=== PATIENT | female | born 1960 | race Caucasian/White ===

== ENCOUNTER 2023-12-25 20:38 | Emergency (ER) | payer OTHER, SELFPAY ==
[2023-12-25 20:44] VITALS: BP 152/83
[2023-12-25 21:53] VITALS: BMI 22.4
[2023-12-25 22:02] VITALS: BP 142/70
[2023-12-25 22:07] LABS: % Basophils 0.2 % (0-2); % Eosinophils 0.2 % (0-6); % Immature Granulocytes 0.3 % (0-0.5); % Lymphocytes 9.4 % (20.5-51.1); % Monocytes 2.6 % (1.7-9.3); % Neutrophils 87.3 % (42.2-75.2); Absolute Lymphocytes 0.9 10^3/uL (1.2-3.4); Absolute Monocytes 0.2 10^3/uL (0.1-0.6); Absolute Neutrophils 8.1 10^3/uL (1.4-6.5); Hematocrit 33.1 % (37.0-47.0); Hemoglobin 11.1 g/dL (12.0-16.0); Mean Corp Hgb Conc. 33.5 g/dL (33.0-37.0); Mean Corpuscular Hgb 30.3 pg (27.0-31.0); Mean Corpuscular Volume 90.4 fL (81.0-99.0); Mean Platelet Volume 10.3 fL (7.4-10.4); Nucleated Red Blood Cells % 0 %; Platelet Count 176 10^3/uL (130-400); Red Blood Cell Count 3.66 10^6/uL (4.20-5.40); Red Cell Dist. Width 12.8 % (11.5-14.5); White Blood Cell Count 9.3 10^3/uL (4.8-10.8)
[2023-12-25 22:18] LABS: Urine Albumin Trace (Neg - Trace); Urine Bilirubin Negative (Negative); Urine Character Clear (Clear); Urine Color Yellow; Urine Glucose Negative (Negative); Urine Ketone 1+ (Negative); Urine Leukocyte Negative (Negative); Urine Nitrite Negative (Negative); Urine Occult Blood 4+ (Negative); Urine Specific Gravity 1.015 (<1.030); Urine Urobilinogen Negative (Neg - 1+)
[2023-12-25 22:28] LABS: Urine Bacteria Few (Negative); Urine Red Blood Cell 70-80 /HPF (0-2); Urine White Cell 0-2 /HPF (0-5)
[2023-12-25 22:36] LABS: ALT (SGPT) 53 U/L (0-35); AST (SGOT) 35 U/L (14-36); Albumin 4.7 g/dl (3.5-5.0); Alkaline Phosphatase 109 U/L (38-126); Blood Urea Nitrogen 34 mg/dl (7-17); Calcium 8.9 mg/dl (8.4-10.2); Carbon Dioxide 16 mmol/L (22-30); Chloride 111 mmol/L (98-107); Estimated Creatinine Clearance 19 ml/min; Glucose 136 mg/dl (70-99); Lipase 232 U/L (23-300); Potassium 4.7 mmol/L (3.5-5.1); Sodium 138 mmol/L (135-145); Total Bilirubin 0.6 mg/dl (0.2-1.3); Total Protein 7.2 g/dl (6.3-8.2); eGFR 19.86
--- NOTE | 2023-12-25 23:07 | ED.GENMED ---
History of Present Illness
General
Chief Complaint: Abdominal Pain
Source: patient
Exam Limitations: none
Time Seen by Provider: 12/25/23 22:00
History of Present Illness
History of Present Illness:
This is a 63 year old female that comes in with c/o right lower abd pain. State that this started at 4pm and was constant. States that at this time it has let up. States that she was nauseated, had dry heaves and diarrhea this morning. Denies any
fever, chills, chest pain, SOB, headache, dizziness, urinary burning.
Past History
Past History
ED Past Medical History: NIDDM and Other (Pancreatitis, Chronic kidney disease)
ED Past Surgical History: Cholecystectomy, Gynecological (Tubal), Orthopedic (Foot, hand and knee surgery (doesn't remember which side)) and Other (Gastric by pass)
Social History
Tobacco: Non-smoker
Alcohol: None
Personal:
Living: with family
Review of Systems
Review of Systems
All Other Systems: ROS reviewed and negative except as documented in HPI and ROS
Constitutional: Reports no symptoms; Denies fever or chills
EENT: Reports no symptoms
Respiratory: Reports no symptoms; Denies cough or trouble breathing
Cardiac: Reports no symptoms; Denies chest pain
ABD/GI: Reports abdominal pain, nausea, vomiting (Dry heaves) and diarrhea
: Reports no symptoms; Denies dysuria, frequency or urgency
Musculoskeletal: Reports no symptoms
Skin: Reports no symptoms
Neurological: Reports no symptoms; Denies dizzy or headache
Psychiatric: Reports no symptoms
Phy Exam
General Physical Exam
General Presentation: no apparent distress
General age: appears stated age
General Skin: warm and dry
General Habitus: normal
General Mental: alert
General Hydration: appears well hydrated
ENT Exam
ENT Exam: TM's normal, pharynx normal and neck supple
Eye Exam
Eye Exam: EOMI
Cardiovascular Exam
Cardiovascular Exam: regular rate/rhythm, no edema, no murmur and normal peripheral pulses
Pulmonary Exam
Pulmonary Exam: lungs clear, no respiratory distress, no rales, chest non tender, no crackles, no rhonchi, no wheezing and no cough
Gastrointestinal Exam
Gastrointestinal Exam: normal bowel sounds, soft, no organomegaly, no pulsatile mass, non distended and tender (Right lower abd tenderness with palpation)
Musculoskeletal Exam
Musculoskeletal Exam: full ROM and no edema
Skin Exam
Skin Exam: normal color, warm/dry, no rash and no petechia
Psychiatric Exam
Psychiatric Exam: normal mood/affect
Course
Orders/Labs/Results
Orders:
Orders
12/25/23 22:00
Complete Blood Count/With Diff Urgent
Comprehensive Metabolic Panel Urgent
Lipase Urgent
12/25/23 22:09
Urine Microscopic Reflex Cult Urgent
Urine Reflex Culture from UA [Urinalysis Reflex To Culture] Urgent
Date Specimen was Collected: 12/25/23
Time Specimen was Collected: 22:07
12/25/23 23:07
0.9% Sodium Chloride 1000 ml [Nss] 1,000 ml IV BOLUS
Iohexol [Omnipaque] See Protocol PO NOW STA
12/26/23 01:15
CT Abd/pel (oral only)-DH Only Urgent
Reason For Exam: right lower abd pain
Abnormal Lab Results
12/25/23 12/25/23
22:00 22:09
RBC 3.66 L 10^6/uL
(4.20-5.40)
Hgb 11.1 L g/dL
(12.0-16.0)
Hct 33.1 L %
(37.0-47.0)
Absolute Neuts (auto) 8.1 H 10^3/uL
(1.4-6.5)
Absolute Lymphs (auto) 0.9 L 10^3/uL
(1.2-3.4)
Neutrophils % 87.3 H %
(42.2-75.2)
Lymphocytes % 9.4 L %
(20.5-51.1)
Chloride 111 H mmol/L
(98-107)
Carbon Dioxide 16 L mmol/L
(22-30)
BUN 34 H mg/dl
(7-17)
Creatinine 2.6 H mg/dL
(0.6-1.0)
Glucose 136 H mg/dl
(70-99)
ALT 53 H U/L
(0-35)
Urine Ketones 1+ A
(Negative)
Ur Occult Blood Reflex 4+ A
(Negative)
Urine RBC 70-80 A /HPF
(0-2)
Urine Bacteria (Reflex) Few A
(Negative)
12/25/23 22:00
12/25/23 22:00
H/H slightly low. Chloride elevation. carbon dioxide low. Chronic Kidney disease, Glucose nonfasting. ALT elevation. Urine negative for infection, Positive for blood. Lipase normal
Vital Signs
Initial and Last Documented VS:
Initial Vital Signs
Temp Pulse Resp BP Pulse Ox
98.6 F 67 20 152/83 99
12/25/23 20:44 12/25/23 20:44 12/25/23 20:44 12/25/23 20:44 12/25/23 20:44
Last Documented Vital Signs
Temp Pulse Resp BP Pulse Ox
98.0 F 62 18 155/76 98
12/25/23 22:02 12/26/23 01:19 12/26/23 01:19 12/26/23 01:19 12/26/23 01:19
MDM/Problems Addressed
Differential Diagnosis Includes:
Appendicitis. Renal calculus,
MDM/Problems Addressed:
This is a 63 year old female that comes in with c/o right lower abd pain. State that this started at 4pm and continued to just recently and know it has subsided.
Will get labs. Urine and CT scan.
Back into see patient. Explained that her blood work shows her chronic renal disease. Patient States that she thinks her last Cr was 2.3. Explained to patient that this is going up and she needs to see her General Magistrate. CT shows that there is some
right sided Hydronephrosis but there is no renal calculus noted. Explained to patient that she may have passed the stone as three is blood in her urine. Encouraged patient to increase her water intake. return with any concerns.
Chronic conditions affecting care: Previous abdomnial surgery and Kidney disease
Acute Exacerbation and/or Progression of Chronic Illness: Previous abdomnial surgery and Kidney disease
*Radiology
Radiology exam reviewed: radiology read reviewed (CT night hawk- mild right hydronephrosis without visualize obstructing calculus. This may be due to a recently passed stone or an ascending urinary tract infection. Dilated left renal pelvis.
bilateral renal cysts. nonobstructing right lower pole renal calculus. Prior gastric bypass. Moderate ) and other (Ct cont- moderate renal esophageal wall and gastric wall thickening. Prior Cholecystectomy. Mild left convex lumbar scoliosis with
associated spondylosis)
*Pulse Oximetry
Patient hypoxic: no
*EKG
Interpreted by ED Provider?: NA
Rate: EKG- N/A
*[employer] Interpretation
Rate: [employer]- N/A
*Critical Care Note
Total Time (30-74mins, 75-104mins- exclusive of procedures): Not Applicable
ED Attending Note
-
Portions of this chart may have been created with voice recognition software.� Occasional wrong word or��sound alike� substitutions may have occurred due to the inherent limitations of voice recognition software.
Discharge Plan
Departure
Patient Disposition: Home (Routine Discharge)
Date of Disposition: 12/26/23
Time of Disposition: 02:33
Patient with high blood pressure during this ER visit?: Yes
Condition: Good
Covid-19: Not Applicable
Discharge Problem:
Abdominal pain, right lower quadrant
Instructions: Abdominal Pain, BLOOD PRESSURE
Referrals:
Jon Mitchell MD [Family Provider] - Call in 1-3 days for appt
Activity Restrictions/Additional Instructions:
As discussed, your blood work shows your renal disease. Please follow up with your General Magistrate for further evaluation. Your CT is negative for any acute disease. There is some hydronephrosis on the right kidney which means that you could have had a
stone and passed the stone as there is none seen in the ureter. Please increase your water intake to 8-8oz glasses daily. IF YOU HAVE INCREASED OR CHANGING PAIN, FEVER, OR YOU HAVE ANY OTHER CONCERNS PLEASE RETURN TO THE EMERGENCY ROOM.
Interventions
Interventions:
*Risk Screen - Suicide Last Done: 12/25/23 20:44
*General Assessment Last Done: 12/25/23 20:44
*Neglect/Abuse Screening Last Done: 12/25/23 20:44
ED- Fall Risk Assessment Last Done: 12/25/23 22:09
TC-Bgtlly-Nobdglujyb Assessment Last Done: 12/25/23 22:09
Discharge Date and Time
Print Language: AZERI
[2023-12-25] MEDS: NSS 1000 IV (23:14)
[2023-12-25] MEDS: OMNIPAQUE 50 ML PO (23:14)
[2023-12-26 01:19] VITALS: BP 155/76
== END 2023-12-26 02:45 | disposition home or self-care (01) ==
LOC: EMR 20:38
PROVIDERS: Clinical Nurse Specialist Family Health; EMERGENCY PHYSICIAN Emergency Medicine; FAMILY PHYSICIAN Family Medicine
DX: R10.31 Right lower quadrant pain (principal); E11.22 Type 2 diabetes mellitus with diabetic chronic kidney disease; N18.9 Chronic kidney disease, unspecified; Z90.49 Acquired absence of other specified parts of digestive tract; Z98.84 Bariatric surgery status
CPT/HCPCS: 99283; 96360; 74176; 80053; 81003; 81015; 83690; 85025

== ENCOUNTER 2024-03-19 16:08 | Inpatient (IN) | payer MEDICARE, OTHER, SELFPAY ==
[2024-03-19] VITALS (10 sets, daily range): BP systolic 123–163; BP diastolic 75–108; BMI 21.6; BMI 21.4
--- NOTE | 2024-03-19 11:47 | ED.GENMED ---
History of Present Illness
General
Chief Complaint: Abdominal Symptoms
Source: patient
Exam Limitations: none
Time Seen by Provider: 03/19/24 11:20
Nursing documentation reviewed up to this point in time: agreed with
History of Present Illness
History of Present Illness:
63-year-old female with a past medical history of diabetes, chronic kidney disease, prior history of pancreatitis who presents to the emergency room for evaluation of nausea, vomiting, abdominal pain. Patient reports onset of symptoms Saturday
evening�she thinks it could potentially been triggered by eating some questionable cottage cheese. She says she began with nausea and vomiting and has had vomiting/dry heaving since. She says that Saturday she had some nonbloody diarrhea which
seems to have resolved. She says that she is having difficulty tolerating fluids. She has been having epigastric abdominal pain consistent for the past few days. She says she has had a low-grade fever at home. Finally came to the ER to be
assessed. She denies any urinary symptoms. She denies any chest pain, shortness of breath. She says she had pancreatitis in the past but says today symptoms do not feel quite the same. She does have prior surgical history of gastric bypass
surgery in 2019 also reports prior history of cholecystectomy and tubal ligation.
Past History
Past History
ED Past Medical History: NIDDM and Other (Pancreatitis, Chronic kidney disease)
ED Past Surgical History: Cholecystectomy, Gynecological (Tubal), Orthopedic (Foot, hand and knee surgery (doesn't remember which side)) and Other (Gastric by pass)
Social History
Tobacco: Non-smoker
Alcohol: None
Personal:
Living: with family
Review of Systems
Review of Systems
All Other Systems: ROS reviewed and negative except as documented in HPI and ROS
Constitutional: Reports fever, fatigue and chills
EENT: Denies sore throat or runny nose
Respiratory: Denies cough or trouble breathing
Cardiac: Denies chest pain or palpitations
ABD/GI: Reports abdominal pain, nausea, vomiting and diarrhea
: Denies dysuria, frequency or flank pain
Musculoskeletal: Denies edema or neck pain
Neurological: Denies dizzy or headache
Phy Exam
Physical Exam
Physical Exam:
General: Awake, alert, oriented x3; no acute distress
Head: Normocephalic, atraumatic
Eyes: Conjunctiva normal, sclera anicteric
Throat: Airway intact, dry mucous membranes
Neck: Trachea midline, supple without meningismus
Lungs: Clear to auscultation bilaterally, no wheezing, rales, rhonchi
Heart: Regular rate and rhythm, no murmurs, gallops, or rubs
Abd: Soft, non distended, tender to palpation in the epigastrium, no peritoneal signs
Neuro: No gross deficits
Skin: no rash, dry
Extremities: Warm and well-perfused with no edema
Scores
Heart Failure Risk
Heart Failure Risk Score: Not Applicable
Heart Score for Chest Pain Patients
STEMI patient?: Not applicable
Withdrawal Assessment of Alcohol
Withdrawal Assessment Completed?: Not applicable
Course
Orders/Labs/Results
Orders:
Orders
03/19/24 11:21
Electrocardiogram (*1) Urgent
Reason for Study: Abdominal Pain
EKG- Treatment ONCE
Urinalysis Reflex To Culture Urgent
0.9% Sodium Chloride 1000 ml [Nss] 1,000 ml IV BOLUS
Ondansetron Injectable [Zofran] 4 mg IV NOW STA
03/19/24 11:38
Basic Metabolic Panel Urgent
Complete Blood Count/With Diff Urgent
Troponin I Urgent
03/19/24 11:59
Acetaminophen [Tylenol] 1,000 mg PO NOW STA
Morphine Sulfate 4 mg IV NOW STA
03/19/24 12:54
CT Abd/pel Without Iv Or Oral Urgent
Comment:
Reason For Exam: upper abd pain, n/v
03/19/24 14:39
Comprehensive Metabolic Panel Urgent
Lipase Urgent
03/19/24 14:45
Stool Culture Urgent
THEO Source: Feces/Stool
Specimen Description:
Abnormal Lab Results
03/19/24
11:38
MPV 10.6 H fL
(7.4-10.4)
Absolute Neuts (auto) 8.3 H 10^3/uL
(1.4-6.5)
Neutrophils % 81.3 H %
(42.2-75.2)
Lymphocytes % 14.4 L %
(20.5-51.1)
Sodium 147 H mmol/L
(135-145)
Chloride 114 H mmol/L
(98-107)
Carbon Dioxide 11 L* mmol/L
(22-30)
BUN 24 H mg/dl
(7-17)
Creatinine 2.4 H mg/dL
(0.6-1.0)
Glucose 139 H mg/dl
(70-99)
03/19/24 11:38
Vital Signs
Initial and Last Documented VS:
Initial Vital Signs
Temp Pulse Resp BP Pulse Ox
36.5 C 73 18 143/81 97
03/19/24 09:42 03/19/24 09:42 03/19/24 09:42 03/19/24 09:42 03/19/24 09:42
Last Documented Vital Signs
Temp Pulse Resp BP Pulse Ox
37.2 C 59 21 163/108 100
03/19/24 12:15 03/19/24 12:30 03/19/24 12:30 03/19/24 12:00 03/19/24 12:30
MDM/Problems Addressed
Differential Diagnosis Includes:
Gastritis, pancreatitis, bowel obstruction, gastroenteritis, atypical angina/PR
MDM/Problems Addressed:
63-year-old female presents for evaluation of nausea, vomiting, epigastric pain and low-grade fever�today is day 4 of symptoms. Vital signs normal here. Exam as above. Place an IV check labs including a CBC, CMP, lipase. Check an EKG and
troponin. Will check CT abdomen pelvis. Will provide fluids and antiemetic. Monitor closely reassess after the above.
Labs reviewed: CBC unremarkable, CMP shows bicarb 11 metabolic acidosis likely from GI losses and dry heaving. CT abdomen pelvis shows liquid stool in the colon no other acute pathology noted. Suspect that this is likely viral illness. Patient
still nauseated and dry heaving will provide another dose of Zofran. Pain improved with morphine. Plan for admission for hydration and symptom control in the setting of suspected viral GI illness. Will send stool sample for culture when able.
Discussed with hospitalist.
Acute Exacerbation and/or Progression of Chronic Illness:
Acutely hypertensive with no signs or symptoms of hypertensive emergency�no indication for emergent antihypertensive treatment at present
Acute Exacerbation and/or Progression of Chronic Illness: HTN
*Radiology
Radiology exam reviewed: radiology read reviewed
*Pulse Oximetry
Patient hypoxic: no
*EKG
Interpreted by ED Provider?: Yes
Heart Rate: 62
Rate: normal
Rhythm: sinus
[place]: normal axis
Interval: normal interval and normal QT interval
QRS Pattern: normal QRS
Ischemia: no ischemia
*Critical Care Note
Total Time (30-74mins, 75-104mins- exclusive of procedures): Not Applicable
Data Reviewed
Review of Other/Old Records Reveals: Labs and Records
Source: patient and records
Patient Management
Discussion with other providers: Hospitalist (Discussed with hospitalist)
Escalation/DeEscalation of care consider admission/obs:
Admission indicated
ED Attending Note
-
Portions of this chart may have been created with voice recognition software.� Occasional wrong word or��sound alike� substitutions may have occurred due to the inherent limitations of voice recognition software.
Discharge Plan
Departure
Presentation/result/management discussed w/ accepting MD/DO: Hospitalist
Discharge Problem:
Colitis, Acute dehydration, Metabolic acidosis
Prescriptions:
No Action
exemestane 25 mg Tablet
25 mg PO DAILY
acetaminophen [Tylenol] 325 mg Tablet
650 mg PO TIDPRN PRN (Reason: mild pain)
aspirin 325 mg Tablet
325 mg PO BIDPRN PRN (Reason: mild pain)
pyridoxine (vitamin B6) 25 mg Tablet
25 mg PO DAILY
omeprazole 40 mg Capsule,Delayed Release(Dr/Ec)
40 mg PO DAILY
vitamin B complex [B Complete] Tablet
1 tab PO DAILY
cholecalciferol (vitamin D3) [Vitamin D3] 25 mcg (1,000 unit) Tablet
25 mcg PO DAILY
Referrals:
Jon Mitchell MD [Family Provider] -
Interventions
Interventions:
*Risk Screen - Suicide Last Done: 03/19/24 09:42
*General Assessment Last Done: 03/19/24 09:42
*Neglect/Abuse Screening Last Done: 03/19/24 09:42
ED- Fall Risk Assessment Last Done: 03/19/24 11:37
*ED COVID-19 Vaccine History Last Done: 03/19/24 11:37
VH-Rkcwtz-Dmdfruldye Assessment Last Done: 03/19/24 11:37
ED- Neurological Assessment Last Done: 03/19/24 11:37
ED-Skin Assessment Last Done: 03/19/24 11:37
Discharge Date and Time
Print Language: TURKMEN
[2024-03-19] MEDS: ZOFRAN 4 MG IV ×4 (11:54→23:55)
[2024-03-19] MEDS: NSS 1000 IV ×2 (11:54→17:10)
[2024-03-19 12:03] LABS: % Basophils 0.2 % (0-2); % Immature Granulocytes 0.3 % (0-0.5); % Lymphocytes 14.4 % (20.5-51.1); % Monocytes 3.8 % (1.7-9.3); % Neutrophils 81.3 % (42.2-75.2); Absolute Lymphocytes 1.5 10^3/uL (1.2-3.4); Absolute Monocytes 0.4 10^3/uL (0.1-0.6); Absolute Neutrophils 8.3 10^3/uL (1.4-6.5); Hematocrit 38.3 % (37.0-47.0); Hemoglobin 12.8 g/dL (12.0-16.0); Mean Corp Hgb Conc. 33.4 g/dL (33.0-37.0); Mean Corpuscular Hgb 29.5 pg (27.0-31.0); Mean Corpuscular Volume 88.2 fL (81.0-99.0); Mean Platelet Volume 10.6 fL (7.4-10.4); Nucleated Red Blood Cells % 0 %; Platelet Count 189 10^3/uL (130-400); Red Blood Cell Count 4.34 10^6/uL (4.20-5.40); Red Cell Dist. Width 12.8 % (11.5-14.5); White Blood Cell Count 10.2 10^3/uL (4.8-10.8)
[2024-03-19] MEDS: TYLENOL 1000 MG PO (12:03)
[2024-03-19] MEDS: MORPHINE SULFATE 4 MG IV (12:04)
[2024-03-19 12:20] LABS: Blood Urea Nitrogen 24 mg/dl (7-17); Calcium 9.3 mg/dl (8.4-10.2); Carbon Dioxide 11 mmol/L (22-30); Chloride 114 mmol/L (98-107); Estimated Creatinine Clearance 21 ml/min; Glucose 139 mg/dl (70-99); Sodium 147 mmol/L (135-145); eGFR 21.87
[2024-03-19 12:26] LABS: Troponin I < 0.012 ng/ml
[2024-03-19 15:09] LABS: ALT (SGPT) 59 U/L (0-35); AST (SGOT) 100 U/L (14-36); Albumin 3.8 g/dl (3.5-5.0); Alkaline Phosphatase 95 U/L (38-126); Blood Urea Nitrogen 23 mg/dl (7-17); Calcium 8.1 mg/dl (8.4-10.2); Carbon Dioxide 12 mmol/L (22-30); Chloride 117 mmol/L (98-107); Estimated Creatinine Clearance 23 ml/min; Glucose 117 mg/dl (70-99); Lipase 295 U/L (23-300); Potassium 3.9 mmol/L (3.5-5.1); Sodium 146 mmol/L (135-145); Total Bilirubin 0.5 mg/dl (0.2-1.3); Total Protein 6.1 g/dl (6.3-8.2); eGFR 24.27
--- NOTE | 2024-03-19 15:27 | HPS.HSE ---
Family Physician
-
Family Physician: Jon Mitchell
Chief Complaint
-
nausea and vomiting
History of Present Illness
Ms. Mikayla Castellano is a 63 yo woman with hx DM, CKD, prior history of pancreatitis, gastric bypass surgery 2019 who presents to the ER with nausea, vomiting, diarrhea.
Symptoms started on Saturday evening, thought triggered by eating some questionable cottage cheese. Since then she has had multiple episodes of vomiting/dry heaves during the day. + upper abdominal pain and now she is starting to feel GERD-like pain
start. + fever up to 100.7. No one else in house is sick. Traveled to [facility] over the weekend.
No chest pain. No shortness of breath. No LE swelling. No rash. Zofran in the ER helped relieve symptoms.
Medical History
Past Medical History
Past Medical History: Reports NIDDM and Other (DM, CKD, prior history of pancreatitis)
Past Surgical History: Reports Cholecystectomy, Orthopedic and Other (gastric bypass surgery 2019)
Social History
Tobacco: Non-smoker
Alcohol: None
Family History
Family History: Not pertinent
Allergies / Home Medications
Allergies reflects when Allergies were last updated in [employer].
Home Medications with original date entered in [employer]
Allergy/Medication List:
Allergies
Allergy/AdvReac Type Severity Reaction Status Date / Time
Sulfa (Sulfonamide Allergy Severe Unknown Verified 03/19/24 09:41
Antibiotics)
Home Medications
acetaminophen 325 mg tablet (Tylenol) 650 mg PO TIDPRN PRN mild pain 03/19/24
aspirin 325 mg tablet 325 mg PO BIDPRN PRN mild pain 03/19/24
cholecalciferol (vitamin D3) 25 mcg (1,000 unit) tablet (Vitamin D3) 25 mcg PO DAILY 03/19/24
exemestane 25 mg tablet 25 mg PO DAILY 03/19/24
omeprazole 40 mg capsule,delayed release 40 mg PO DAILY 03/19/24
pyridoxine (vitamin B6) 25 mg tablet 25 mg PO DAILY 03/19/24
vitamin B complex 1 tab PO DAILY 03/19/24
Review of Systems
-
History Source: Patient
A 12 point ROS was completed and negative except as noted: Yes
Physical Exam
Vital Signs
Vital Signs
Temp Pulse Resp BP Pulse Ox
99 F 59 21 163/108 100
03/19/24 12:15 03/19/24 12:30 03/19/24 12:30 03/19/24 12:00 03/19/24 12:30
Physical Exam
General: No Apparent Distress and Conversant
HEENT: PERRLA
Respiratory: Clear; No Wheezes
Cardiac: S1/S2 and Regular Rhythm
GI: Soft and Other (mild tenderness mid-epigsatric region, no rebound or guarding )
Musculoskeletal: No Edema
Skin: Warm and Dry; No Rash
Neuro: AO x 3
Psych: Calm
Laboratory Results
-
03/19/24 11:38
03/19/24 14:39
Laboratory Results
Total Bilirubin 0.5 mg/dl (0.2-1.3) 03/19/24 14:39
AST 100 U/L (14-36) H 03/19/24 14:39
ALT 59 U/L (0-35) H 03/19/24 14:39
Alkaline Phosphatase 95 U/L (38-126) 03/19/24 14:39
Troponin I < 0.012 ng/ml 03/19/24 11:38
Lipase 295 U/L (23-300) 03/19/24 14:39
Data Reviewed
-
Diagnostic Radiology: Report Reviewed by me
Lab Data: Labs Reviewed by me
Impression/Plan
-
Ms. Mikayla Castellano is a 63 yo woman with hx DM, CKD III, prior history of pancreatitis, gastric bypass surgery 2018 who presents to the ER with nausea/vomiting/diarrhea found to have metabolic acidosis.
Triage VS: T 36.5C, P 73, RR 18, BP 143/81, SpO2 97%
LABS: WBC 10.2, Hg 12.8, PLT 189, Na 147, + 3.9, Cl 114, CO2 11, Cr 2.4, Glucose 139, T. Bili 0.5, AST 100, ALT 59, Alk Phos 95, Lipase 295
EKG: NSR @ 62, QTc 391
CT A/P
IMPRESSION:
Liquid stool in the colon which can be seen in the setting of diarrheal disease. Otherwise, no acute abnormality in the abdomen or pelvis.
Colonic diverticulosis without acute diverticulitis.
Stable nonobstructing calculi in the lower pole of the right kidney.
MAR: IV Morphine, 1L NS, IV Zofran 4mg x 2 , tylenol 1G x 1
Gastroenteritis
Chronic Kidney Disease stage III
Metabolic Acidosis
-patient unable to keep food down at home; CT with liquid stool; no other acute abnormality
-prior creatinine 2.6 12/22 - repeat today 2.2 (baseline)
-admit to telemetry given metabolic acidosis
-additional 1L bolus now
-sodium bicarb fluids
-check lactate
-patient plans to follow up with Dr. Albrecht as outpatient
-stool culture, C. Diff, norovirus testing, covid
-avoid antibiotics for now
-IV Zofran PRN
-IV Dilaudid PRN
GERD
-IV Protonix
DVT PPx lovenox subQ
FULL CODE
[2024-03-19 16:29] LABS: Magnesium 1.5 mg/dl (1.6-2.3)
[2024-03-19] MEDS: NSS (PRESERVATIVE FREE) 10 ML IV (17:10)
[2024-03-19] MEDS: PROTONIX IV 40 MG IV (17:10)
[2024-03-19] MEDS: MAGNESIUM SULFATE 50 IV (17:14)
[2024-03-19 17:29] LABS: Urine Albumin 1+ (Neg - Trace); Urine Bilirubin Negative (Negative); Urine Character Clear (Clear); Urine Color Yellow; Urine Glucose Negative (Negative); Urine Ketone Negative (Negative); Urine Leukocyte Negative (Negative); Urine Nitrite Negative (Negative); Urine Occult Blood Negative (Negative); Urine Specific Gravity 1.015 (<1.030); Urine Urobilinogen Negative (Neg - 1+)
--- NOTE | 2024-03-19 17:31 | PTCARENOTE ---
Received pt from ED, pt ambulated from stretcher to bed with minimal assistance, VSS, pt resting comfortablt in bed with call lowry within reach at this time.
[2024-03-19 17:39] LABS: Lactic Acid 0.8 mmol/L (0.7-2.0)
[2024-03-19 17:41] LABS: COVID-19 Antigen Negative (Negative)
[2024-03-19 17:57] LABS: Urine Mucus Few
[2024-03-19 17:58] LABS: Urine Granular Cast 0-2 /LPF (0); Urine Hyaline Cast 0-2 /LPF (0-2); Urine White Cell Cast 0-2 /LPF
[2024-03-19] MEDS: SODIUM BICARBONATE 1150 MEQ IV (18:20)
[2024-03-19] MEDS: TYLENOL 650 MG PO ×2 (19:52→23:52)
[2024-03-19] MEDS: HEPARIN 5000 UNITS SC (19:54)
[2024-03-20] VITALS (8 sets, daily range): BP systolic 136–175; BP diastolic 68–78
[2024-03-20] MEDS: TYLENOL 650 MG PO ×4 (04:12→23:20)
[2024-03-20] MEDS: SODIUM BICARBONATE 1150 MEQ IV ×2 (04:32→16:21)
[2024-03-20 06:43] LABS: % Basophils 0.2 % (0-2); % Eosinophils 0.3 % (0-6); % Immature Granulocytes 0.5 % (0-0.5); % Lymphocytes 17.3 % (20.5-51.1); % Neutrophils 76.7 % (42.2-75.2); Absolute Immature Granulocytes 0.1 10^3/uL (0-0.05); Absolute Lymphocytes 1.7 10^3/uL (1.2-3.4); Absolute Monocytes 0.5 10^3/uL (0.1-0.6); Absolute Neutrophils 7.3 10^3/uL (1.4-6.5); Hematocrit 29.7 % (37.0-47.0); Hemoglobin 9.9 g/dL (12.0-16.0); Mean Corp Hgb Conc. 33.3 g/dL (33.0-37.0); Mean Corpuscular Hgb 30.4 pg (27.0-31.0); Mean Corpuscular Volume 91.1 fL (81.0-99.0); Mean Platelet Volume 10.4 fL (7.4-10.4); Nucleated Red Blood Cells % 0 %; Platelet Count 142 10^3/uL (130-400); Red Blood Cell Count 3.26 10^6/uL (4.20-5.40); Red Cell Dist. Width 12.7 % (11.5-14.5); White Blood Cell Count 9.5 10^3/uL (4.8-10.8)
[2024-03-20 06:48] LABS: ALT (SGPT) 68 U/L (0-35); AST (SGOT) 82 U/L (14-36); Albumin 3.4 g/dl (3.5-5.0); Alkaline Phosphatase 92 U/L (38-126); Blood Urea Nitrogen 21 mg/dl (7-17); Calcium 7.8 mg/dl (8.4-10.2); Carbon Dioxide 17 mmol/L (22-30); Chloride 112 mmol/L (98-107); Direct Bilirubin 0.2 mg/dl (0.0-0.4); Estimated Creatinine Clearance 23 ml/min; Glucose 95 mg/dl (70-99); Magnesium 1.8 mg/dl (1.6-2.3); Sodium 144 mmol/L (135-145); Total Bilirubin 0.5 mg/dl (0.2-1.3); Total Protein 5.6 g/dl (6.3-8.2); eGFR 24.27
--- NOTE | 2024-03-20 08:03 | W.PN.HOSP.TC ---
Today's Communication/Plan
-
advance diet, but pt told to just 'pick'
continue IVF
GI consult
follow labs
await stool studies
Assessment / Plan
Assessment / Plan
Ms. Mikayla Castellano is a 63 yo woman with hx DM, CKD III, prior history of pancreatitis, gastric bypass surgery 2019 who presents to the ER with nausea/vomiting/diarrhea found to have metabolic acidosis.
Triage VS: T 36.5C, P 73, RR 18, BP 143/81, SpO2 97%
LABS: WBC 10.2-->9.5, Hg 12.8, PLT 189, Na 147-->144, + 3.9, Cl 114-->112, CO2 11-->17, Cr 2.4-->2.2, Glucose 139, T. Bili 0.5, AST 100, ALT 59, Alk Phos 95, Lipase 295
EKG: NSR @ 62, QTc 391
CT A/P
IMPRESSION:
Liquid stool in the colon which can be seen in the setting of diarrheal disease. Otherwise, no acute abnormality in the abdomen or pelvis.
Colonic diverticulosis without acute diverticulitis.
Stable nonobstructing calculi in the lower pole of the right kidney.
MAR: IV Morphine, 1L NS, IV Zofran 4mg x 2 , tylenol 1G x 1
Gastroenteritis
Chronic Kidney Disease stage III
Metabolic Acidosis
Headache most likely muscular from vomiting
-patient unable to keep food down at home; CT with liquid stool; no other acute abnormality
-prior creatinine 2.6 12/22 - repeat today 2.2 (baseline)
-admit to telemetry given metabolic acidosis
-sodium bicarb fluids
- lactate 0.8
-patient plans to follow up with Dr. Albrecht as outpatient
-stool culture, C. Diff, norovirus testing, covid, stool for WBC
-with fever will start on abx
-IV Zofran PRN
-IV Dilaudid PRN
GERD
-IV Protonix
DVT PPx lovenox subQ
FULL CODE
Anticipated Discharge: 24 - 48 hours
Subjective/Interval History
-
Date of Service: March 20, 2024
Still with nausea, dry heaves, no diarrhea.
Also c/o headache posterior base of skull
Objective Data
-
Labs:
Laboratory Results
03/20/24
04:42
WBC 9.5
Hgb 9.9 L D
Hct 29.7 L
Plt Count 142 D
Sodium 144
Potassium 4.0
Chloride 112 H
Carbon Dioxide 17 L
BUN 21 H
Creatinine 2.2 H
Glucose 95
Calcium 7.8 L
Total Bilirubin 0.5
AST 82 H
ALT 68 H
Alkaline Phosphatase 92
Vital Signs:
Vital Signs
Temp Pulse Resp BP Pulse Ox
98.9 F 64 18 141/75 96
03/20/24 06:14 03/20/24 04:00 03/20/24 04:00 03/20/24 04:00 03/20/24 04:00
I&O
03/19/24 03/20/24 03/21/24
06:59 06:59 06:59
Intake Total 1805 / 1805
Balance 1805 / 1805
Review of Systems
-
History Source: Patient and Coordinated Provider
Constitutional: Reports Fever (101.7)
EENT: Reports No Symptoms Reported
Respiratory: Reports No Symptoms
Cardiac: Reports No Symptoms
Abdomen/GI: Reports Abdominal Pain (mild), Nausea and Vomiting; Denies Diarrhea
Genitourinary: Reports No Symptoms
Musculoskeletal: Reports No Symptoms
Neuro: Reports Headache (posterior base of skull at muscular insertion points)
Physical Exam
-
General: Well Developed, Well Nourished and No Apparent Distress; Negative Respiratory Distress
HEENT: Normocephalic, Atraumatic, Moist Mucous Membranes and Other (point tenderness at posterior muscular insertion points)
Respiratory: Clear to Auscultation; Negative Wheezes, Rales or Rhonchi
Cardiac: Regular Rhythm and S1/S2
GI: Soft and Nontender (to light pressing)
Skin: Warm and Dry
Neuro: Awake, Alert and Oriented
[2024-03-20] MEDS: HEPARIN 5000 UNITS SC ×2 (08:27→20:39)
[2024-03-20] MEDS: PROTONIX IV 40 MG IV (08:28)
[2024-03-20] MEDS: NSS (PRESERVATIVE FREE) 10 ML IV (08:28)
[2024-03-20] MEDS: AROMASIN 25 MG PO (08:28)
[2024-03-20] MEDS: VITAMIN B-6 25 MG PO (08:28)
[2024-03-20] MEDS: DILAUDID 0.5 MG IV (08:31)
--- NOTE | 2024-03-20 09:04 | CON.GI ---
Addendum entered and electronically signed by Owen Monsivais DO 03/20/24 12:53:
I saw and examined the patient. The CHEMISTRY PHYSICS TEACHER's note was reviewed and I agree with the note.
Comment: Ms Castellano is a 63 y.o female with past medical history of HTN, HLD, DM, CKD, breast cancer (s/p L lumpectomy, chemo/radiation), chronic GERD, hx of pancreatitis (2/2 biliary due to passed stone) and RYGB (in 2019) who presented to the
ED with nausea/vomiting, non-bloody diarrhea and abdominal pain after eating spoiled cottage cheese. Etiology most consistent with likely infectious viral versus bacterial gastroenteritis given her duration of symptoms and food ingestion of spoiled
cottage cheese few days earlier. No prior chronicity of symptoms in the past except for mild, chronic reflux. No bloody stools or chronic abdominal pain. Given her fevers up to 102 while in the hospital, agree with empiric IV antibiotics for
infectious gastroenteritis as very low suspicion for shiga-toxin producing organism (ETEC, etc). May have underlying esophagitis as well further contributing to her nausea/vomiting and prolonged poor p.o intake given her anatomy and prior reflux.
Otherwise, agree with supportive measures as below and appears to be improving.
Recommendations:
- IVF to maintain euvolemia
- Agree with empiric IV abx given fevers, would treat for empiric 7 day course
- If able to produce BM, would check stool culture, stool O&P, Norovirus. No concern for C Diff and defer C Diff testing
- Trend LFTs q daily. Would obtain acute viral hepatitis serologies to r/o acute HAV
- PPI 40 mg BiD for 4 weeks, then once daily to maximize acid suppression if component of esophagitis
- May use low dose bentyl 10 mg TiD PRN as needed for cramping
- No plans for endoscopic intervention. Would benefit from outpatient f/u for both EGD and Colonoscopy. Have set patient f/u at GI with me in 3-4 weeks
- Rest of supportive as below
GI team will continue to follow while inpatient.
Original Note:
Consultation
-
Date/Time Consultation Requested: 03/20/24 0845
Date/Time Consultation Performed: 03/20/24 0900
Requesting Provider: Dr. Johnston
Performing Provider: Dr. Monsivais/LINDA Rasmussen
Reason for Consultation: n/v/d, anemia
Medical History
Chief Complaint / HPI
Chief Complaint: n/v/abd pain
History of Present Illness:
63-year-old female with past medical history of breast cancer status post left-sided lumpectomy with chemo and radiation, chronic kidney disease, hypertension, hyperlipidemia, diet-controlled diabetes, history of Angelina-en-Y gastric bypass (2019),
prior history of pancreatitis 2 years ago (felt to be from passed gallstone) who presents to the emergency room with nausea/vomiting/diarrhea and abdominal pain. Asked to evaluate for the same as well as anemia. The patient states that she was out
visiting her son grady Squires for the past week. She states on Saturday morning she packed some cottage cheese for the ride home. She states that this was in the car with her the entire ride which was approximately 6 hours. She ate this later
and she states that this may have gone bad. A few hours after that she started with acute onset of nausea and vomiting. During that ride she also had [employer] fish sandwich and [place] fries. Over the weekend she does not recall eating anything
that was spoiled. Her son is not sick. She lives alone. She did have 1 wine cooler over the weekend. Since that time she has had persistent symptoms of nausea vomiting and gnawing abdominal discomfort the pain stayed in the
epigastric/periumbilical region. It did not radiate. Nothing made it better or worse. She did develop diarrhea/loose stools as well. She had a low-grade fever of 100.4 at home. It progressed to a point where she no longer had anything in her
body and she had dry heaves. She started feeling very weak and still had abdominal discomfort. Because of persistence of abdominal pain and weakness she decided to come to the emergency room on 03/19/2024. She has not had any bowel movements here.
She is still nauseous with dry heaves. She was given 2 L IV fluid bolus in the emergency room. She has also received another liter of IV fluids as well with bicarb and continues on IV fluids at 150 cc an hour. Her abdominal pain has improved
after administration of IV fluids. She does have a headache at this point. Her Tmax here was 101.7 last evening. This morning she is 99.5. She denies any melena, hematochezia, dysphagia or odynophagia. She denies any unintentional weight loss.
She denies any acholic stools, bilirubinuria or pruritus. She denies any history of hepatitis, jaundice or liver disease. She denies any tattoos, piercings or IV drug use. Presentation WBC 10.1, hemoglobin 12.8 now down to 9.9 after aggressive IV
fluid hydration (no signs of bleeding). Platelets 142, sodium 144 down from 147, potassium 4.0, chloride 112, CO2 17 up from 11, BUN 21, creatinine 2.2, glucose 95, calcium 7.8, magnesium 1.8, total bilirubin 0.5, direct 0.2, AST 82 down from 100,
ALT 68 up from 59, alk phos 92 down from 95, troponin less than 0.012, albumin 3.4. COVID-negative. CT of the abdomen and pelvis without oral or IV contrast shows liquid stool in the colon which can be seen in the setting of diarrheal disease.
Otherwise no acute abnormality of the abdomen or pelvis. Colonic diverticulosis without diverticulitis. Stable nonobstructing calculi in the lower pole the right kidney.
Past Medical History
Past Medical History: Cancer (Breast Cancer s/p L lumpectomy XTR and CTX), GERD, HTN, Hypercholesterolemia, NIDDM and Other (CKD, pancreatitis)
Past Surgical History: Cholecystectomy, Gynecological (Tubal ligation), Orthopedic (Foot, hand, knee) and Other (left breast lumpectomy, Angelina-en-Y gastric bypass (2019))
Social History
Tobacco: Former Smoker
Alcohol: Occasional (Rare approximately 2 times a year)
Drug: None
Personal:
Living: Alone
Family History
Family History: Other (Mother with history of rectal cancer)
Allergies / Home Medications
Allergy/AdvReac Type Severity Reaction Status Date / Time
Sulfa (Sulfonamide Allergy Unknown Verified 03/19/24 16:58
Antibiotics)
�Medication �Instructions �Recorded
acetaminophen 325 mg tablet 650 mg PO TIDPRN PRN mild pain 03/19/24
(Tylenol)
aspirin 325 mg tablet 325 mg PO BIDPRN PRN mild pain 03/19/24
cholecalciferol (vitamin D3) 25 25 mcg PO DAILY 03/19/24
mcg (1,000 unit) tablet (Vitamin
D3)
exemestane 25 mg tablet 25 mg PO DAILY 03/19/24
omeprazole 40 mg capsule,delayed 40 mg PO DAILY 03/19/24
release
pyridoxine (vitamin B6) 25 mg 25 mg PO DAILY 03/19/24
tablet
vitamin B complex 1 tab PO DAILY 03/19/24
Review of Systems
-
All other systems: A 12 pt ROS was Negative except as stated above in HPI
Vital Signs
Temp Pulse Resp BP Pulse Ox
99.5 F 61 18 136/72 99
03/20/24 07:15 03/20/24 07:15 03/20/24 07:15 03/20/24 07:15 03/20/24 07:15
Physical Exam
Exam
General: No Apparent Distress
HEENT: Anicteric
Respiratory: Clear
Cardiac: Regular Rhythm
GI: Soft, Non Tender, Non Distended and Normal Bowel Sounds
Musculoskeletal: No Edema
Skin: Warm and Dry
Neuro: AO x 3
Psych: Calm
Results
WBC 9.5 10^3/uL (4.8-10.8) 03/20/24 04:42
Hgb 9.9 g/dL (12.0-16.0) L D 03/20/24 04:42
Hct 29.7 % (37.0-47.0) L 03/20/24 04:42
MCV 91.1 fL (81.0-99.0) 03/20/24 04:42
Plt Count 142 10^3/uL (130-400) D 03/20/24 04:42
Absolute Neuts (auto) 7.3 10^3/uL (1.4-6.5) H 03/20/24 04:42
Sodium 144 mmol/L (135-145) 03/20/24 04:42
Potassium 4.0 mmol/L (3.5-5.1) 03/20/24 04:42
Chloride 112 mmol/L (98-107) H 03/20/24 04:42
Carbon Dioxide 17 mmol/L (22-30) L 03/20/24 04:42
BUN 21 mg/dl (7-17) H 03/20/24 04:42
Creatinine 2.2 mg/dL (0.6-1.0) H 03/20/24 04:42
Calcium 7.8 mg/dl (8.4-10.2) L 03/20/24 04:42
Total Bilirubin 0.5 mg/dl (0.2-1.3) 03/20/24 04:42
AST 82 U/L (14-36) H 03/20/24 04:42
ALT 68 U/L (0-35) H 03/20/24 04:42
Alkaline Phosphatase 92 U/L (38-126) 03/20/24 04:42
Lipase 295 U/L (23-300) 03/19/24 14:39
Diagnostic Image Results:
CT abdomen and pelvis without contrast:
IMPRESSION:
Liquid stool in the colon which can be seen in the setting of diarrheal disease. Otherwise, no acute abnormality in the abdomen or pelvis.
Colonic diverticulosis without acute diverticulitis.
Stable nonobstructing calculi in the lower pole of the right kidney.
Electronically signed by Cody Sargent DO, 03/19/2024 1:49 PM
Prior GI Procedures:
EGD: Patient believes she had this prior to her Angelina-en-Y gastric bypass. Does not recall results
Colonoscopy: Performed at [facility] approximately 5 years ago. Patient believes she had polyps. Due for repeat colonoscopy at this time
Assessment / Plan
-
63-year-old female with past medical history of breast cancer status post left-sided lumpectomy with chemo and radiation, chronic kidney disease, hypertension, hyperlipidemia, diet-controlled diabetes, history of Angelina-en-Y gastric bypass (2019),
prior history of pancreatitis 2 years ago (felt to be from passed gallstone) who presents to the emergency room with nausea/vomiting/diarrhea and abdominal pain. Asked to evaluate for the same as well as anemia. Presentation WBC 10.1, hemoglobin
12.8 now down to 9.9 after aggressive IV fluid hydration (no signs of bleeding). Platelets 142, sodium 144 down from 147, potassium 4.0, chloride 112, CO2 17 up from 11, BUN 21, creatinine 2.2, glucose 95, calcium 7.8, magnesium 1.8, total
bilirubin 0.5, direct 0.2, AST 82 down from 100, ALT 68 up from 59, alk phos 92 down from 95, troponin less than 0.012, albumin 3.4. Lipase 295. COVID-negative. CT of the abdomen and pelvis without oral or IV contrast shows liquid stool in the
colon which can be seen in the setting of diarrheal disease. Otherwise no acute abnormality of the abdomen or pelvis. Colonic diverticulosis without diverticulitis. Stable nonobstructing calculi in the lower pole the right kidney.
Impression:
Nausea/vomiting/diarrhea-> symptoms align with either infectious enteritis versus foodborne illness
Elevated transaminases
Metabolic acidosis
Anemia-> there is a level of underlying anemia with history of gastric bypass. It appears patient's last labs show hemoglobin of 11 at baseline. She has also been aggressively hydrated with over 3 L of IV fluids, no GI bleeding.
Plan:
-Continue supportive care
-Continue pantoprazole
-Stool studies if patient has bowel movement
-Check hepatitis A
-Trend LFTs
-Will hold on any endoscopic procedures at this point. Patient will need follow-up colonoscopy as she is due. With chronicity of GERD and no recent endoscopy would also recommend EGD at that time. Patient states she would like to follow-up with
[place] gastro[facility].
-Further recommendations to be forthcoming.
-
-
Thank you for consultation and allowing me to participate in the patient's care. Please call the welder production line combination GI physician during the after hours with any questions or concerns.
[2024-03-20] MEDS: UNASYN IV ×2 (09:13→17:17)
[2024-03-20 11:15] LABS: Hepatitis A IgM Antibody Negative (Negative)
[2024-03-20] MEDS: ZOFRAN 4 MG IV ×2 (11:50→20:39)
--- NOTE | 2024-03-20 16:12 | CM ---
Patient seen at bedside. Patient states that she lives with her sons in a 2 story home. Patient has a walker at home that she does not use, and no other DME. Patient PCP is Dr. Mitchell and she uses the [facility] in [place]. Patient states that she was very
independent prior to admission and that she does not know what she will need at discharge. CM will continue to follow for discharge planning needs.
Plan; home with VN vs SNF pending physician assessment and medical treatment plan
[2024-03-20 19:47] LABS: % Basophils 0.1 % (0-2); % Eosinophils 0.3 % (0-6); % Immature Granulocytes 0.4 % (0-0.5); % Lymphocytes 9.5 % (20.5-51.1); % Monocytes 3.8 % (1.7-9.3); % Neutrophils 85.9 % (42.2-75.2); Absolute Monocytes 0.4 10^3/uL (0.1-0.6); Absolute Neutrophils 8.9 10^3/uL (1.4-6.5); Hemoglobin 9.7 g/dL (12.0-16.0); Mean Corp Hgb Conc. 33.4 g/dL (33.0-37.0); Mean Corpuscular Hgb 29.8 pg (27.0-31.0); Mean Platelet Volume 10.7 fL (7.4-10.4); Nucleated Red Blood Cells % 0 %; Platelet Count 143 10^3/uL (130-400); Red Blood Cell Count 3.26 10^6/uL (4.20-5.40); Red Cell Dist. Width 12.8 % (11.5-14.5); White Blood Cell Count 10.4 10^3/uL (4.8-10.8)
[2024-03-20 20:08] LABS: Blood Urea Nitrogen 23 mg/dl (7-17); Calcium 7.6 mg/dl (8.4-10.2); Carbon Dioxide 25 mmol/L (22-30); Chloride 103 mmol/L (98-107); Estimated Creatinine Clearance 23 ml/min; Glucose 290 mg/dl (70-99); Potassium 3.7 mmol/L (3.5-5.1); Sodium 138 mmol/L (135-145); eGFR 24.27
[2024-03-20] MEDS: COMPAZINE 5 MG IV (23:55)
[2024-03-21] MEDS: TYLENOL 325 MG PO (00:40)
[2024-03-21 03:00] VITALS: BP 145/75
[2024-03-21 03:37] VITALS: BP 145/75
[2024-03-21] MEDS: SODIUM BICARBONATE 1150 MEQ IV (03:40)
[2024-03-21] MEDS: UNASYN IV ×2 (06:29→17:29)
[2024-03-21 07:15] VITALS: BP 163/120
[2024-03-21] MEDS: PROTONIX IV 40 MG IV (08:22)
[2024-03-21] MEDS: NSS (PRESERVATIVE FREE) 10 ML IV (08:22)
[2024-03-21] MEDS: VITAMIN B-6 25 MG PO (08:22)
[2024-03-21] MEDS: AROMASIN 25 MG PO (08:23)
[2024-03-21] MEDS: HEPARIN 5000 UNITS SC ×2 (08:23→20:46)
[2024-03-21] MEDS: ZOFRAN 4 MG IV ×2 (08:33→17:34)
--- NOTE | 2024-03-21 08:36 | W.PN.GI.CBS2 ---
Today's Communication / Plan
-
Please see assessment and plan for details.
Assessment / Plan
-
1. Vomiting/diarrhea: Most consistent with foodborne infectious gastroenteritis, overall much improved symptoms, with no further diarrhea, much improved cramps, no vomiting, tolerating diet. She did have significant fever, though again exam and
symptoms are much improved. Will follow-up on blood cultures and fever curve, continue supportive care for now including IV fluids, antiemetics if needed.
2. Elevated LFTs: In a mild necroinflammatory pattern. Will await repeat labs today and continue to trend for now, we will plan outpatient workup if remain elevated, already has appointment set up with Dr. Monsivais in the next few weeks.
Subjective
Subjective
Date of Service: March 21, 2024
Patient overall feeling better, no diarrhea, much less cramping, tolerated diet without difficulty. She did have significant fever, though again is overall feeling better.
Objective
Data Reviewed
Laboratory Data:
Laboratory Results
Magnesium 1.8 mg/dl (1.6-2.3) 03/20/24 04:42
Total Bilirubin Cancelled 03/21/24 06:50
AST Cancelled 03/21/24 06:50
ALT Cancelled 03/21/24 06:50
Alkaline Phosphatase Cancelled 03/21/24 06:50
Lipase 295 U/L (23-300) 03/19/24 14:39
Vital Signs and I&O:
Vital Signs
Temp Pulse Resp BP Pulse Ox
100.6 F H 66 16 163/120 94
03/21/24 07:15 03/21/24 07:15 03/21/24 07:15 03/21/24 07:15 03/21/24 07:15
I&O
03/20/24 03/21/24 03/22/24
06:59 06:59 06:59
Intake Total 1805 / 1805 4140 / 4140
Balance 1805 / 1805 4140 / 4140
Physical Exam
Physical Exam
General: NAD
Abdomen: normal bowel sounds, soft, no tenderness, no masses or bruits, no ascites
--- NOTE | 2024-03-21 09:00 | PTCARENOTE ---
Pt's BP running 160/120 this AM with a temp of 100.6. made aware, no new orders at this time, PRN tylenol provided for temperature.
[2024-03-21] MEDS: TYLENOL 650 MG PO ×2 (09:36→20:46)
[2024-03-21 10:26] LABS: % Basophils 0.2 % (0-2); % Eosinophils 0.3 % (0-6); % Immature Granulocytes 0.5 % (0-0.5); % Lymphocytes 13.4 % (20.5-51.1); % Monocytes 5.3 % (1.7-9.3); % Neutrophils 80.3 % (42.2-75.2); Absolute Immature Granulocytes 0.1 10^3/uL (0-0.05); Absolute Lymphocytes 1.6 10^3/uL (1.2-3.4); Absolute Monocytes 0.6 10^3/uL (0.1-0.6); Absolute Neutrophils 9.5 10^3/uL (1.4-6.5); Hematocrit 29.7 % (37.0-47.0); Hemoglobin 10.1 g/dL (12.0-16.0); Mean Corpuscular Volume 88.1 fL (81.0-99.0); Mean Platelet Volume 10.4 fL (7.4-10.4); Nucleated Red Blood Cells % 0 %; Platelet Count 154 10^3/uL (130-400); Red Blood Cell Count 3.37 10^6/uL (4.20-5.40); Red Cell Dist. Width 12.5 % (11.5-14.5); White Blood Cell Count 11.8 10^3/uL (4.8-10.8)
[2024-03-21 10:35] LABS: ALT (SGPT) 55 U/L (0-35); AST (SGOT) 52 U/L (14-36); Albumin 3.4 g/dl (3.5-5.0); Alkaline Phosphatase 87 U/L (38-126); Blood Urea Nitrogen 22 mg/dl (7-17); Calcium 7.4 mg/dl (8.4-10.2); Carbon Dioxide 30 mmol/L (22-30); Chloride 99 mmol/L (98-107); Direct Bilirubin 0.2 mg/dl (0.0-0.4); Estimated Creatinine Clearance 25 ml/min; Glucose 148 mg/dl (70-99); Potassium 3.3 mmol/L (3.5-5.1); Sodium 139 mmol/L (135-145); Total Bilirubin 0.6 mg/dl (0.2-1.3); Total Protein 5.5 g/dl (6.3-8.2); eGFR 27.21
[2024-03-21 11:10] VITALS: BP 127/66
--- NOTE | 2024-03-21 11:14 | W.PN.HOSP.TC ---
Today's Communication/Plan
-
adjust IVF
follow labs
with continued fever will order blood cx
Assessment / Plan
Assessment / Plan
Ms. Mikayla Castellano is a 63 yo woman with hx DM, CKD III, prior history of pancreatitis, gastric bypass surgery 2019 who presents to the ER with nausea/vomiting/diarrhea found to have metabolic acidosis.
Triage VS: T 36.5C, P 73, RR 18, BP 143/81, SpO2 97%
LABS: WBC 10.2-->9.5, Hg 12.8, PLT 189, Na 147-->144, + 3.9, Cl 114-->112, CO2 11-->17, Cr 2.4-->2.2, Glucose 139, T. Bili 0.5, AST 100, ALT 59, Alk Phos 95, Lipase 295
EKG: NSR @ 62, QTc 391
CT A/P
IMPRESSION:
Liquid stool in the colon which can be seen in the setting of diarrheal disease. Otherwise, no acute abnormality in the abdomen or pelvis.
Colonic diverticulosis without acute diverticulitis.
Stable nonobstructing calculi in the lower pole of the right kidney.
MAR: IV Morphine, 1L NS, IV Zofran 4mg x 2 , tylenol 1G x 1
Gastroenteritis
Chronic Kidney Disease stage III
Metabolic Acidosis
Headache most likely muscular from vomiting
-patient unable to keep food down at home; CT with liquid stool; no other acute abnormality: Liquid stool in the colon which can be seen in the setting of diarrheal disease. Otherwise, no acute abnormality in the abdomen or pelvis.
Colonic diverticulosis without acute diverticulitis.
Stable nonobstructing calculi in the lower pole of the right kidney.
-prior creatinine 2.6 12/22 - 2.2-->2.2-->2.0
-admit to telemetry given metabolic acidosis
CO2 11-->12-->17-->25-->30
-will stop sodium bicarb fluids
hypokalemia
will adjust IVF and supplement K
- lactate 0.8
-patient plans to follow up with Dr. Albrecht as outpatient
-stool culture, C. Diff, norovirus testing, covid, stool for WBC (but has not passed any stool since arrival in hospital)
-with fever will start on abx
discussed with Dr. Rich, will check Blood Cx with continued fever
-IV Zofran PRN
-IV Dilaudid PRN
GERD
-IV Protonix
DVT PPx lovenox subQ
reviewed with GI and nursing, complex situation
FULL CODE
Anticipated Discharge: > 48 hours
Subjective/Interval History
-
Date of Service: March 21, 2024
Nausea has eased, still no stool production
Objective Data
-
Labs:
Laboratory Results
03/21/24 03/21/24
06:50 09:52
WBC Cancelled 11.8 H
Hgb Cancelled 10.1 L
Hct Cancelled 29.7 L
Plt Count Cancelled 154
Sodium Cancelled 139
Potassium Cancelled 3.3 L
Chloride Cancelled 99
Carbon Dioxide Cancelled 30
BUN Cancelled 22 H
Creatinine Cancelled 2.0 H
Glucose Cancelled 148 H
Calcium Cancelled 7.4 L
Total Bilirubin Cancelled 0.6
AST Cancelled 52 H
ALT Cancelled 55 H
Alkaline Phosphatase Cancelled 87
Vital Signs:
Vital Signs
Temp Pulse Resp BP Pulse Ox
100.6 F H 66 16 163/120 94
03/21/24 07:15 03/21/24 07:15 03/21/24 07:15 03/21/24 07:15 03/21/24 10:21
I&O
03/20/24 03/21/24 03/22/24
06:59 06:59 06:59
Intake Total 1804 4140 / 4140
Balance 1804 4140 / 4140
Review of Systems
-
History Source: Patient and Coordinated Provider
Constitutional: Reports Fever (Still with fever, Tmax 103.6)
EENT: Reports No Symptoms Reported
Respiratory: Reports No Symptoms
Cardiac: Reports No Symptoms
Abdomen/GI: Reports Abdominal Pain (mild), Nausea and Vomiting; Denies Diarrhea
Genitourinary: Reports No Symptoms
Musculoskeletal: Reports No Symptoms
Neuro: Reports Headache (posterior base of skull at muscular insertion points)
Physical Exam
-
General: Well Developed, Well Nourished and No Apparent Distress; Negative Respiratory Distress
HEENT: Normocephalic, Atraumatic, Moist Mucous Membranes and Other (point tenderness at posterior muscular insertion points)
Respiratory: Clear to Auscultation; Negative Wheezes, Rales or Rhonchi
Cardiac: Regular Rhythm and S1/S2
GI: Soft and Nontender (to light pressing)
Skin: Warm and Dry
Neuro: Awake, Alert and Oriented
[2024-03-21] MEDS: D5/0.45%NSS with KCL 20 MEQ 1000 IV (13:00)
[2024-03-21 15:05] VITALS: BP 157/81
[2024-03-21 19:22] VITALS: BP 142/75
[2024-03-22] VITALS (8 sets, daily range): BP systolic 119–151; BP diastolic 64–81
[2024-03-22] MEDS: ZOFRAN 4 MG IV ×2 (00:07→14:33)
[2024-03-22] MEDS: D5/0.45%NSS with KCL 20 MEQ 1000 IV ×2 (02:32→14:32)
[2024-03-22] MEDS: UNASYN IV ×2 (05:32→17:18)
[2024-03-22 07:21] LABS: % Basophils 0.1 % (0-2); % Eosinophils 1.5 % (0-6); % Immature Granulocytes 0.5 % (0-0.5); % Lymphocytes 16.7 % (20.5-51.1); % Monocytes 5.8 % (1.7-9.3); % Neutrophils 75.4 % (42.2-75.2); Absolute Eosinophils 0.1 10^3/uL (0-0.7); Absolute Lymphocytes 1.4 10^3/uL (1.2-3.4); Absolute Monocytes 0.5 10^3/uL (0.1-0.6); Absolute Neutrophils 6.4 10^3/uL (1.4-6.5); Hematocrit 30.6 % (37.0-47.0); Hemoglobin 10.1 g/dL (12.0-16.0); Mean Corpuscular Hgb 29.5 pg (27.0-31.0); Mean Corpuscular Volume 89.5 fL (81.0-99.0); Nucleated Red Blood Cells % 0 %; Platelet Count 143 10^3/uL (130-400); Red Blood Cell Count 3.42 10^6/uL (4.20-5.40); Red Cell Dist. Width 12.3 % (11.5-14.5); White Blood Cell Count 8.5 10^3/uL (4.8-10.8)
[2024-03-22 08:38] LABS: Blood Urea Nitrogen 19 mg/dl (7-17); Calcium 7.6 mg/dl (8.4-10.2); Carbon Dioxide 29 mmol/L (22-30); Chloride 100 mmol/L (98-107); Estimated Creatinine Clearance 25 ml/min; Glucose 120 mg/dl (70-99); Potassium 3.8 mmol/L (3.5-5.1); Sodium 140 mmol/L (135-145); eGFR 27.21
--- NOTE | 2024-03-22 08:49 | W.PN.GI.CBS2 ---
Today's Communication / Plan
-
Please see assessment and plan for details.
Assessment / Plan
-
1. Vomiting/diarrhea: Most consistent with foodborne infectious gastroenteritis, overall much improved symptoms, with no further diarrhea, much improved cramps, no vomiting, tolerating diet still having some nausea. Her fever curve is improved,
blood cultures pending. Will continue supportive care and observation.
2. Elevated LFTs: In a mild necroinflammatory pattern, improved likely more from underlying infection. Outpatient workup if remain elevated, already has appointment set up with Dr. Monsivais in the next few weeks.
Subjective
Subjective
Date of Service: March 22, 2024
Patient feeling okay, overall better, fever curve improved though still with low-grade temperature, no bowel movements, some mild nausea though is tolerating diet. Much less abdominal pain.
Objective
Data Reviewed
Laboratory Data:
Laboratory Results
03/22/24 06:52
03/22/24 06:52
Laboratory Results
Magnesium 1.8 mg/dl (1.6-2.3) 03/20/24 04:42
Total Bilirubin 0.6 mg/dl (0.2-1.3) 03/21/24 09:52
AST 52 U/L (14-36) H 03/21/24 09:52
ALT 55 U/L (0-35) H 03/21/24 09:52
Alkaline Phosphatase 87 U/L (38-126) 03/21/24 09:52
Lipase 295 U/L (23-300) 03/19/24 14:39
Vital Signs and I&O:
Vital Signs
Temp Pulse Resp BP Pulse Ox
99.8 F 55 18 151/80 98
03/22/24 03:13 03/22/24 03:13 03/22/24 03:13 03/22/24 03:13 03/22/24 03:13
I&O
03/21/24 03/22/24 03/23/24
06:59 06:59 06:59
Intake Total 0 / 4139
Balance 4139 / 4139
Physical Exam
Physical Exam
General: NAD
Abdomen: normal bowel sounds, soft, no tenderness, no masses or bruits, no ascites
--- NOTE | 2024-03-22 08:56 | W.PN.HOSP.TC ---
Today's Communication/Plan
-
follow fever curve
await Blood Cx
continue IVF, Unasyn
Assessment / Plan
Assessment / Plan
Ms. Mikayla Castellano is a 63 yo woman with hx DM, CKD III, prior history of pancreatitis, gastric bypass surgery 2019 who presents to the ER with nausea/vomiting/diarrhea found to have metabolic acidosis. Pt had traveled out to [facility] to visit
son and took cottage cheese with her to eat on the trip and ate it right before she left her son's to return home (Saturday) immediately prior to getting ill that evening (Saturday evening)
Hx of Breast Cancer in 2016
As per pt, VARGAS, remains on Exemestane
Triage VS: T 36.5C, P 73, RR 18, BP 143/81, SpO2 97%
LABS: WBC 10.2-->9.5-->8.5, Hg 12.8, PLT 189, Na 147-->144-->139-->140, K 3.3-->3.9, CO2 11-->17-->30-->29, Cr 2.4-->2.2-->2.0, Glucose 120, T. Bili 0.5, AST 100, ALT 59, Alk Phos 95, Lipase 295
EKG: NSR @ 62, QTc 391
CT A/P:Liquid stool in the colon which can be seen in the setting of diarrheal disease. Otherwise, no acute abnormality in the abdomen or pelvis.
Colonic diverticulosis without acute diverticulitis.
Stable nonobstructing calculi in the lower pole of the right kidney.
Gastroenteritis
most likely infectious source (?Cottage Cheese). Fever is trending down, but has not yet resolved
Chronic Kidney Disease stage III
Metabolic Acidosis
Headache most likely muscular from vomiting, now fully resolved
-prior creatinine 2.6 12/22 - 2.2-->2.2-->2.0
-admit to telemetry given metabolic acidosis, resolved
CO2 11-->12-->17-->25-->30
-IVF adjusted
hypokalemia
resolved
- lactate 0.8
-patient plans to follow up with Dr. Albrecht as outpatient
-stool culture, C. Diff, norovirus testing, covid, stool for WBC (but still has not passed any stool since arrival in hospital)
-with fever started on abx - Unasyn, renally dosed
discussed with Dr. Rich, checking Blood Cx with continued fever, results pending
consideration for ID consult if fever persists, though certainly has lessened and WBC is normal
-IV Zofran PRN
-IV Dilaudid PRN
GERD
-IV Protonix
DVT PPx lovenox subQ
reviewed with GI and nursing
FULL CODE
Anticipated Discharge: 24 - 48 hours
Subjective/Interval History
-
Date of Service: March 22, 2024
Awake, alert, starting to tolerate diet, still with nausea, but has eased, no BM's
Objective Data
-
Labs:
Laboratory Results
03/22/24
06:52
WBC 8.5
Hgb 10.1 L
Hct 30.6 L
Plt Count 143
Sodium 140
Potassium 3.8
Chloride 100
Carbon Dioxide 29
BUN 19 H
Creatinine 2.0 H
Glucose 120 H
Calcium 7.6 L
Vital Signs:
Vital Signs
Temp Pulse Resp BP Pulse Ox
100.4 F H 62 16 141/78 93
03/22/24 07:15 03/22/24 07:15 03/22/24 07:15 03/22/24 07:15 03/22/24 07:15
I&O
03/21/24 03/22/24 03/23/24
06:59 06:59 06:59
Intake Total 0 / 4140 1939
Balance 414 / [id number]
Review of Systems
-
History Source: Patient, Physician (reviewed with Dr. Rich) and Coordinated Provider
Constitutional: Reports Fever (100.4 this morning)
EENT: Reports No Symptoms Reported
Respiratory: Reports No Symptoms
Cardiac: Reports No Symptoms
Abdomen/GI: Reports Abdominal Pain, Nausea and Vomiting (still with dry heaves, but has lessened)
Physical Exam
-
General: Well Developed, Well Nourished and No Apparent Distress; Negative Respiratory Distress
HEENT: Normocephalic, Atraumatic and Moist Mucous Membranes; Negative Other (point tenderness at posterior muscular insertion points has fully rersolved)
Respiratory: Clear to Auscultation; Negative Wheezes, Rales or Rhonchi
Cardiac: Regular Rhythm and S1/S2
GI: Soft and Nontender (to light pressing)
Skin: Warm and Dry
Neuro: Awake, Alert and Oriented
[2024-03-22] MEDS: AROMASIN 25 MG PO (09:38)
[2024-03-22] MEDS: VITAMIN B-6 25 MG PO (09:38)
[2024-03-22] MEDS: PROTONIX IV 40 MG IV (09:39)
[2024-03-22] MEDS: NSS (PRESERVATIVE FREE) 10 ML IV (09:39)
[2024-03-22] MEDS: HEPARIN 5000 UNITS SC ×2 (09:40→20:23)
[2024-03-22] MEDS: TYLENOL 650 MG PO ×3 (09:52→22:02)
[2024-03-23] MEDS: DILAUDID 0.5 MG IV ×2 (00:54→06:33)
[2024-03-23] MEDS: ZOFRAN 4 MG IV ×2 (01:01→06:32)
[2024-03-23] MEDS: LOTRISONE CREAM TOPICAL (02:50)
[2024-03-23 03:02] VITALS: BP 148/76
[2024-03-23] MEDS: UNASYN IV (06:33)
[2024-03-23] MEDS: D5/0.45%NSS with KCL 20 MEQ 1000 IV (06:36)
[2024-03-23 07:10] VITALS: BP 157/79
[2024-03-23 08:11] LABS: % Basophils 0.2 % (0-2); % Eosinophils 2.9 % (0-6); % Immature Granulocytes 0.3 % (0-0.5); % Lymphocytes 25.1 % (20.5-51.1); % Monocytes 6.3 % (1.7-9.3); % Neutrophils 65.2 % (42.2-75.2); Absolute Eosinophils 0.2 10^3/uL (0-0.7); Absolute Lymphocytes 1.6 10^3/uL (1.2-3.4); Absolute Monocytes 0.4 10^3/uL (0.1-0.6); Absolute Neutrophils 4.2 10^3/uL (1.4-6.5); Hematocrit 30.6 % (37.0-47.0); Hemoglobin 10.1 g/dL (12.0-16.0); Mean Corpuscular Hgb 29.4 pg (27.0-31.0); Mean Corpuscular Volume 89.2 fL (81.0-99.0); Mean Platelet Volume 11.1 fL (7.4-10.4); Nucleated Red Blood Cells % 0 %; Platelet Count 167 10^3/uL (130-400); Red Blood Cell Count 3.43 10^6/uL (4.20-5.40); Red Cell Dist. Width 12.5 % (11.5-14.5); White Blood Cell Count 6.5 10^3/uL (4.8-10.8)
[2024-03-23] MEDS: VITAMIN B-6 25 MG PO (08:21)
[2024-03-23] MEDS: HEPARIN 5000 UNITS SC (08:22)
[2024-03-23] MEDS: PROTONIX IV 40 MG IV ×2 (08:22→08:23)
[2024-03-23] MEDS: AROMASIN 25 MG PO (08:22)
[2024-03-23] MEDS: NSS (PRESERVATIVE FREE) 10 ML IV (08:24)
--- NOTE | 2024-03-23 08:37 | W.PN.GI.CBS2 ---
Today's Communication / Plan
-
Slowly improving with ongoing supportive care, will need eventual outpatient follow-up after discharge. Will help to arrange. Rest of care as outlined below. GI team will sign-off, call back as needed/questions.
Assessment / Plan
-
Ms Castellano is a 63 y.o female with past medical history of HTN, HLD, DM, CKD, breast cancer (s/p L lumpectomy, chemo/radiation), chronic GERD, hx of pancreatitis (2/2 biliary due to passed stone) and RYGB (in 2019) who presented to the ED with
nausea/vomiting, non-bloody diarrhea and abdominal pain after eating spoiled cottage cheese. Etiology most consistent with likely infectious viral versus bacterial gastroenteritis given her duration of symptoms and food ingestion of spoiled cottage
cheese few days earlier. No prior chronicity of symptoms in the past except for mild, chronic reflux. No bloody stools or chronic abdominal pain. Given her fevers up to 102 while in the hospital, agree with empiric IV antibiotics for infectious
gastroenteritis as very low suspicion for shiga-toxin producing organism (ETEC, etc). May have underlying esophagitis as well further contributing to her nausea/vomiting and prolonged poor p.o intake given her anatomy and prior reflux. Otherwise,
agree with supportive measures as below and appears to be improving.
#Nausea/Vomiting
#Diarrhea- Resolved
Etiology most consistent with foodborne-related infectious gastroenteritis. No further diarrhea since her hospitalization and without any recent BM. Still with some nausea but without any recent vomiting. Blood cultures remain NGTD and unable to
send stool cultures (as no BM). Possible further underlying esophagitis contributing to her nausea given her multiple episodes of nausea/vomiting and hx of RYGB. Otherwise, overall improving with ongoing supportive care
- Low-fat, low-residue/low-fiber diet as tolerated
- Empiric PPI 40 mg BiD then once daily
- D/c stool studies as no recent BM > 4-5 days
- Start gentle Miralax 17 gm once daily, can titrate as needed
- Recommend outpatient GI f/u with me in the office in the next 3-4 weeks
- Continue ongoing supportive care per primary team
#Elevated LFTs
Mild elevated transaminases likely from infection. Acute HAV r/o with (-) HAV IgM. Continue to improve. No prior hx of liver injury or elevated LFTs in the past.
- Will check extended hepatitis serologies (ie HBV, HCV) for completion
- Defer further serologic work of chronic liver disease at this time
- Trend q daily while inpatient
#Normocytic Anemia
No signs of GI bleeding, appears baseline 11-10s. Hgb 10s during her admission without overt GI blood loss. Suspect due to her underlying RYGB, no recent anemia w/u.
- Check iron studies, ferritin, folate, and B12
- If iron deficient, start IV iron
- Would benefit from EGD and Colonoscopy if iron deficient as outpatient
Discussed with primary internal medicine team this AM.
GI team will sign-off. Please call back with any questions or concerns.
Subjective
Subjective
Date of Service: March 23, 2024
- No acute events overnight, afebrile overnight with last fever 100.4 on 03/22
- Blood cultures remain NGTD
Resting comfortably in bed, although notes worsening headache and sinus pressure. No cough or SOB. Still with nausea but without any episodes of emesis or abdominal pain. No recent BM since her admission, passing flatus without abd discomfort.
Objective
Data Reviewed
Laboratory Data:
Laboratory Results
03/23/24 06:27
Laboratory Results
Magnesium 1.8 mg/dl (1.6-2.3) 03/20/24 04:42
Total Bilirubin 0.6 mg/dl (0.2-1.3) 03/21/24 09:52
AST 52 U/L (14-36) H 03/21/24 09:52
ALT 55 U/L (0-35) H 03/21/24 09:52
Alkaline Phosphatase 87 U/L (38-126) 03/21/24 09:52
Lipase 295 U/L (23-300) 03/19/24 14:39
Vital Signs and I&O:
Vital Signs
Temp Pulse Resp BP Pulse Ox
99.3 F 58 16 157/79 95
03/23/24 07:10 03/23/24 07:10 03/23/24 07:10 03/23/24 07:10 03/23/24 07:10
I&O
03/22/24 03/23/24 03/24/24
06:59 06:59 06:59
Intake Total 1939 1080 / 1080
Balance 1939 1080 / 1080
Physical Exam
Physical Exam
HEENT: Anicteric and Moist mucous membranes
Cardiology: Normal Sinus Rhythm
Pulmonary: Other (Normal WOB on room air)
GI: Soft, Non Distended, Flat and Non Tender
Extremities: Warm
Neuro: Non Focal
[2024-03-23] MEDS: LOTRISONE CREAM 1 APPLIC TOPICAL (09:47)
[2024-03-23 10:32] LABS: ALT (SGPT) 140 U/L (0-35); AST (SGOT) 184 U/L (14-36); Albumin 3.2 g/dl (3.5-5.0); Alkaline Phosphatase 100 U/L (38-126); Blood Urea Nitrogen 18 mg/dl (7-17); Calcium 8.1 mg/dl (8.4-10.2); Carbon Dioxide 25 mmol/L (22-30); Chloride 104 mmol/L (98-107); Direct Bilirubin 0.3 mg/dl (0.0-0.4); Estimated Creatinine Clearance 24 ml/min; Glucose 131 mg/dl (70-99); Potassium 4.3 mmol/L (3.5-5.1); Sodium 141 mmol/L (135-145); Total Bilirubin 0.6 mg/dl (0.2-1.3); Total Protein 5.5 g/dl (6.3-8.2); eGFR 25.67
[2024-03-23 10:48] LABS: Iron 118 ug/dl (37-170)
[2024-03-23 10:57] LABS: Percent Saturation 44 % (20-50); Total Iron Binding Capacity 266 ug/dl (265-497)
[2024-03-23 11:05] VITALS: BP 143/78
--- NOTE | 2024-03-23 11:56 | CM ---
Addendum entered by Sarah Nunez 03/23/24 14:47:
IMM explained & signed. In chart
Original Note:
Met with patient at bedside.
tt from Dr. Arias mcgrath d/c
Spoke with son Joel - no needs
PLAN: Home, no needs.
Son to transport.
--- NOTE | 2024-03-23 12:55 | W.PN.HOSP.TC ---
Today's Communication/Plan
-
� Symptomatic control, Rx Zofran as needed
� PPI once daily 40 mg
- Gentle MiraLAX
� Continue low-fat, low residue, low fiber diet as tolerated
� Complete 7-day course of antibiotics�Augmentin 500 mg every 12 hours for 4 additional days
-F/u anemia work up outpatient
-F/u LFTs, CBC, CMP outpatient
� Follow-up GI, PCP outpatient
Assessment / Plan
Assessment / Plan
Ms. Mikayla Castellano is a 63 yo woman with hx DM, CKD III, prior history of pancreatitis, gastric bypass surgery 2019 who presents to the ER with nausea/vomiting/diarrhea found to have metabolic acidosis. Pt had traveled out to [facility] to visit
son and took cottage cheese with her to eat on the trip and ate it right before she left her son's to return home (Saturday) immediately prior to getting ill that evening (Saturday evening)
Hx of Breast Cancer in 2016
As per pt, VARGAS, remains on Exemestane
Triage VS: T 36.5C, P 73, RR 18, BP 143/81, SpO2 97%
LABS: WBC 10.2-->9.5-->8.5, Hg 12.8, PLT 189, Na 147-->144-->139-->140, K 3.3-->3.9, CO2 11-->17-->30-->29, Cr 2.4-->2.2-->2.0, Glucose 120, T. Bili 0.5, AST 100, ALT 59, Alk Phos 95, Lipase 295
EKG: NSR @ 62, QTc 391
CT A/P:Liquid stool in the colon which can be seen in the setting of diarrheal disease. Otherwise, no acute abnormality in the abdomen or pelvis.
Colonic diverticulosis without acute diverticulitis.
Stable nonobstructing calculi in the lower pole of the right kidney.
Gastroenteritis
Sepsis
�Most likely infectious source
�Defeversced
� Diarrhea improved/resolved
� Symptomatic control, Rx Zofran as needed
� PPI once daily 40 mg
- Gentle MiraLAX
� Continue low-fat, low residue, low fiber diet as tolerated
� Complete 7-day course of antibiotics�Augmentin 500 mg every 12 hours for 4 additional days
� Follow-up GI outpatient
Chronic Kidney Disease stage III
Metabolic Acidosis
Headache most likely muscular from vomiting, now fully resolved
�Acidosis, headache resolved
hypokalemia
resolved
#Anemia
� Iron saturations within normal limits
� Follow B12, folate�follow-up GI for further workup of anemia outpatient
#Transaminitis
� Suspect secondary to acute infection
� Follow-up hepatitis serology outpatient
Follow-up CMP outpatient
GERD
-Protonix
DVT PPx lovenox subQ
reviewed with GI and nursing
FULL CODE
More than 30 minutes spent in discharge including
Final examination of the patient
Summarizing hospital stay
Instructions for continuing care to all relevant caregivers
Preparation of discharge records, prescriptions, and referral forms
Total time spent (35 in minutes):
Anticipated Discharge: Today
Subjective/Interval History
-
Date of Service: March 23, 2024
symptoms improved, tolerating diet
Objective Data
-
Labs:
Laboratory Results
03/23/24 03/23/24
06:27 09:58
WBC 6.5
Hgb 10.1 L
Hct 30.6 L
Plt Count 167
Sodium 141 Cancelled
Potassium 4.3 Cancelled
Chloride 104 Cancelled
Carbon Dioxide 25 Cancelled
BUN 18 H Cancelled
Creatinine 2.1 H Cancelled
Glucose 131 H Cancelled
Calcium 8.1 L Cancelled
Total Bilirubin 0.6 Cancelled
AST 184 H Cancelled
ALT 140 H Cancelled
Alkaline Phosphatase 100 Cancelled
Vital Signs:
Vital Signs
Temp Pulse Resp BP Pulse Ox
97.6 F 72 16 143/78 96
03/23/24 11:05 03/23/24 11:05 03/23/24 11:05 03/23/24 11:05 03/23/24 11:05
I&O
03/22/24 03/23/24 03/24/24
06:59 06:59 06:59
Intake Total 1939 1080 / 1080
Balance 1939 1080 / 1080
Review of Systems
-
History Source: Patient
All other systems: Not reviewed unless documented
Physical Exam
-
General: Well Developed, Well Nourished and No Apparent Distress; Negative Respiratory Distress
HEENT: Normocephalic, Atraumatic and Moist Mucous Membranes
Respiratory: Clear to Auscultation; Negative Wheezes, Rales or Rhonchi
Cardiac: Regular Rhythm and S1/S2
GI: Soft and Nontender
Skin: Warm and Dry
Neuro: Awake, Alert and Oriented
Data Reviewed
-
CT Scan: Image personally visualized and interpreted and Report Reviewed by me
Labs: Labs Reviewed by me
--- NOTE | 2024-03-23 13:03 | W.DS.TRANS ---
DC Summary - Job Cost Estimator
-
Discharge Instructions:
Discharge Diagnosis/Procedures
Gastroenteritis
Diet Low Fiber,Low Fat,Low Cholesterol,Low Residue
Activity As tolerated
Blood Work cbc, cmp in 1 week
Instructions:
Stand-Alone Forms:
Changes to Home Medications: Yes
Discharge Medications:
DC Medications w/original date entered in [employer] [facility]
acetaminophen 325 mg tablet (Tylenol) 650 mg PO TIDPRN PRN mild pain 03/19/24
aspirin 325 mg tablet 325 mg PO BIDPRN PRN mild pain 03/19/24
cholecalciferol (vitamin D3) 25 mcg (1,000 unit) tablet (Vitamin D3) 25 mcg PO DAILY 03/19/24
exemestane 25 mg tablet 25 mg PO DAILY 03/19/24
pyridoxine (vitamin B6) 25 mg tablet 25 mg PO DAILY 03/19/24
vitamin B complex 1 tab PO DAILY 03/19/24
amoxicillin 500 mg-potassium clavulanate 125 mg tablet (Augmentin) 1 tab PO Q12H 4 days #8 tabs 03/23/24
ondansetron 4 mg disintegrating tablet 4 mg PO Q8H PRN nausea and vomiting 3 days #14 tabs 03/23/24
pantoprazole 40 mg tablet,delayed release 40 mg PO DAILY #30 tabs 03/23/24
polyethylene glycol 3350 17 gram oral powder packet (HealthyLax) 17 g PO DAILY #100 ea 03/23/24
Home Medication Changes
amoxicillin 500 mg-potassium clavulanate 125 mg tablet (Augmentin) 1 tab PO Q12H 4 days #8 tabs 03/23/24
ondansetron 4 mg disintegrating tablet 4 mg PO Q8H PRN nausea and vomiting 3 days #14 tabs 03/23/24
pantoprazole 40 mg tablet,delayed release 40 mg PO DAILY #30 tabs 03/23/24
polyethylene glycol 3350 17 gram oral powder packet (HealthyLax) 17 g PO DAILY #100 ea 03/23/24
Pending Results: No
[2024-03-23 15:15] VITALS: BP 136/76
[2024-03-23] MEDS: D5/0.45%NSS with KCL 20 MEQ IV (15:32)
[2024-03-23 15:33] LABS: Folate 8.2 ng/ml (2.76-20); Vitamin B12 995 pg/ml (239-931)
[2024-03-23 20:14] LABS: Hepatitis B Surface Antigen Negative (Negative)
[2024-03-23 20:33] LABS: Hepatitis B Core Ab, Total Negative (Negative); Hepatitis B Surface Antibody Negative; Hepatitis C Antibody Negative (Negative)
[2024-03-23 20:37] LABS: Hepatitis A Antibody, Total Negative (Negative)
[2024-03-24 17:27] LABS: Transferrin 200 mg/dL (200-360)
== END 2024-03-23 16:40 | disposition home or self-care (01) | DRG 392 ==
LOC: 2 NORTH 16:08
PROVIDERS: Internal Medicine; Internal Medicine Gastroenterology; Nurse Practitioner; ADMITTING PHYSICIAN Student in an Organized Health Care Education/Training Program; ATTENDING PHYSICIAN Internal Medicine; EMERGENCY PHYSICIAN Emergency Medicine; FAMILY PHYSICIAN Family Medicine; OTHER PHYSICIAN Student in an Organized Health Care Education/Training Program
DX: A09 Infectious gastroenteritis and colitis, unspecified (principal); E87.20 Acidosis, unspecified; Z87.891 Personal history of nicotine dependence; K57.30 Diverticulosis of large intestine without perforation or abscess without bleeding; I12.9 Hypertensive chronic kidney disease with stage 1 through stage 4 chronic kidney disease, or unspecified chronic kidney disease; N18.30 Chronic kidney disease, stage 3 unspecified; E87.6 Hypokalemia; K21.9 Gastro-esophageal reflux disease without esophagitis
CPT/HCPCS: 74176; 80048; 80053; 81003; 81015; 82248; 82607; 82728; 82746; 83540; 83550; 83605; 83690; 83735; 84466; 84484; 85025; 86704; 86706; 86708; 86709; 86803; 87040; 87340; 87811; 93005; 96361; 96374; 96375; 96376; 99285

== ENCOUNTER 2024-04-09 04:09 | Inpatient (IN) | payer MEDICARE, OTHER, SELFPAY ==
[2024-04-08 20:22] VITALS: BP 142/82
[2024-04-08 20:35] LABS: % Basophils 0.1 % (0-2); % Eosinophils 1.4 % (0-6); % Immature Granulocytes 0.5 % (0-0.5); % Lymphocytes 9.9 % (20.5-51.1); % Monocytes 7.6 % (1.7-9.3); % Neutrophils 80.5 % (42.2-75.2); Absolute Eosinophils 0.1 10^3/uL (0-0.7); Absolute Lymphocytes 0.8 10^3/uL (1.2-3.4); Absolute Monocytes 0.6 10^3/uL (0.1-0.6); Absolute Neutrophils 6.4 10^3/uL (1.4-6.5); Hematocrit 31.8 % (37.0-47.0); Hemoglobin 10.8 g/dL (12.0-16.0); Mean Corpuscular Hgb 29.8 pg (27.0-31.0); Mean Corpuscular Volume 87.6 fL (81.0-99.0); Mean Platelet Volume 10.1 fL (7.4-10.4); Nucleated Red Blood Cells % 0 %; Platelet Count 191 10^3/uL (130-400); Red Blood Cell Count 3.63 10^6/uL (4.20-5.40); Red Cell Dist. Width 12.8 % (11.5-14.5); White Blood Cell Count 7.9 10^3/uL (4.8-10.8)
[2024-04-08 20:46] LABS: Lactic Acid 1.2 mmol/L (0.7-2.0)
[2024-04-08 20:51] LABS: ALT (SGPT) 36 U/L (0-35); AST (SGOT) 25 U/L (14-36); Albumin 3.9 g/dl (3.5-5.0); Alkaline Phosphatase 110 U/L (38-126); Blood Urea Nitrogen 26 mg/dl (7-17); Calcium 8.9 mg/dl (8.4-10.2); Carbon Dioxide 17 mmol/L (22-30); Chloride 111 mmol/L (98-107); Glucose 153 mg/dl (70-99); Lipase 307 U/L (23-300); Potassium 3.9 mmol/L (3.5-5.1); Sodium 143 mmol/L (135-145); Total Bilirubin 0.2 mg/dl (0.2-1.3); Total Protein 6.3 g/dl (6.3-8.2); eGFR 25.67
--- NOTE | 2024-04-08 22:49 | ED.GENMED ---
History of Present Illness
General
Chief Complaint: Abdominal Symptoms
Source: patient
Exam Limitations: none
Time Seen by Provider: 04/08/24 22:32
Nursing documentation reviewed up to this point in time: agreed with
History of Present Illness
History of Present Illness:
Patient with history of gastric bypass in 2018, type 2 diabetes, and chronic renal insufficiency, presents to ED secondary to persistent nausea, vomiting, as well as abdominal cramps sensation, with concern for 'dehydration'. Patient unfortunately
was admitted to the hospital for same complaint last month and was discharged home 2 weeks ago. Since being discharged home, patient states that her symptoms have persisted. Patient also reports low-grade fever of 99.9. Denies diarrhea, but
reports loose bowel movements. Denies headache. Denies sore throat. Denies coughing. Denies chest pain or shortness of breath. Patient feels as though she may have lost some weight since being discharged home. Patient states that she does not
have any upcoming appointments with GI physician
Past History
Past History
ED Past Medical History: NIDDM and Other (Pancreatitis, Chronic kidney disease)
ED Past Surgical History: Cholecystectomy, Gynecological (Tubal), Orthopedic (Foot, hand and knee surgery (doesn't remember which side)) and Other (Gastric by pass)
Social History
Tobacco: Non-smoker
Alcohol: None
Personal:
Living: with family
Review of Systems
Review of Systems
Allergies reviewed?: Yes
All Other Systems: ROS reviewed and negative except as documented in HPI and ROS
Constitutional: Reports fever; Denies chills
EENT: Reports no symptoms
Respiratory: Reports no symptoms; Denies trouble breathing
Cardiac: Reports no symptoms; Denies chest pain
ABD/GI: Reports abdominal pain, nausea and vomiting; Denies diarrhea
Musculoskeletal: Reports no symptoms
Skin: Reports no symptoms
Neurological: Reports weakness
Phy Exam
Physical Exam
Physical Exam:
Physical Exam
General: mild distress, appears uncomfortable. afebrile
Head: nc/at. eomi
Neck: supple. no meningeal signs.
Heart: s1/s2 regular rate and rhythm, no murmur. equal radial pulses.
Lungs: no acute respiratory distress. clear bilaterally
Abdomen: normal bowel sounds. mild diffuse tenderness to palpation. no distention
Neuro: alert and oriented. no focal neurological deficits
Skin: no rash
Psychiatric: well kept. interactive and cooperative
Extremities: no edema. no calf tenderness.
Course
Orders/Labs/Results
Orders:
Orders
04/08/24 20:28
Complete Blood Count/With Diff Urgent
Comprehensive Metabolic Panel Urgent
Lactic Acid Urgent
Lipase Urgent
Magnesium Urgent
Comment: ADD ON
04/08/24 22:47
Add On- LAB Urgent
Tests Added?: magnesium
Electrocardiogram (*1) Urgent
Reason for Study: QTc Monitoring
EKG- Treatment ONCE
04/08/24 22:48
0.9% Sodium Chloride 1000 ml [Nss] 1,000 ml IV BOLUS
Ondansetron Injectable [Zofran] 4 mg IV NOW STA
Pantoprazole [Protonix IV] 40 mg IV NOW STA
04/08/24 22:58
Stool Culture Urgent
THEO Source: Feces/Stool
Specimen Description:
04/08/24 23:57
Venous Blood Gas Urgent
%Oxygen/Room Air: 94
04/09/24 00:56
Morphine Sulfate 2 mg IV NOW STA
04/09/24 01:00
0.9% Sodium Chloride 1000 ml [Nss] 1,000 ml IV 100 mls/hr
04/09/24 02:01
Admit/Transfer Patient As Directed
Co-Sign Provider:
Level of Care: Inpatient admission
Assign to:: Medical/Surgical
Physician / Group: Akbar
Diagnosis: Non-Gapped Metabolic Acidosis, Enteritis
Reason for Hospitalization: Non-Gapped Metabolic Acidosis, Enteritis
Expected length of stay greater than two midnights?: Yes
ELOS- Estimated Length of Stay in days: 3
I certify the patient meets the requirements for IP care: Yes
PRN Pain Medication Management As Directed
May give lesser potent ordered pain med per pt: Yes
preference::
Protocol:: Medication orders for pain may be administered in a
manner that supports deferring to patient preference
when the pt is:
- Requesting an ordered lesser potent pain medication.
Least to most potent pain medications are defined
as: acetaminophen < NSAID < tramadol < opioids
(morphine, oxycodone, hydromorphone).
- Requesting a lesser dose of the same medication IF
ORDERED.
- Requesting a less intrusive route of administration
if both routes are prescribed by the provider (PO <
IV).
04/09/24 02:03
Code Status As Directed
Resuscitation Status: Full Code
04/09/24 04:20
Acetaminophen [Tylenol] 650 mg PO Q4HPRN PRN
Lactated Ringers [Lr] 1,000 ml IV 150 mls/hr
Ondansetron Injectable [Zofran] 4 mg IV Q6HPRN PRN
04/09/24 04:20
Consult Notification Routine
Specialty to Notify: Gastroenterology
GASTROINTESTINAL CONSULT Routine
Consulting Provider: Hao Connors
Was physician already notified: No
Reason for consult: Persistent nausea / diarrhea
Urinalysis Reflex To Culture Urgent
Vitamin D, 25-OH Routine
Stool Culture Urgent
THEO Source: Feces/Stool
Specimen Description:
Stool For WBC Urgent
THEO Source: Feces/Stool
Specimen Description:
Activity As Directed
Activity Level: Ambulate
With Assistance
Bladder Scan As Directed
Follow Bladder Retention/Intermittent Cath Algorithm?: Yes
PRN if no void in __ hours: 6
Frequency: Per Retention Algorithm
If Bladder Scan Result >: 400
then:: Straight cath
I/O [Intake/ Output] As Directed
Frequency: Per unit guidelines
Orthostatic Vital Signs As Directed
Orthostatic VS Frequency: BID
Pneumatic Compression Sleeves As Directed
Type: Knee high
Straight Cath As Directed
Frequency: Per Retention Algorithm
Additional Instructions: straight cath as needed per acute urinary retention algorithm for 24 hrs
Additional Instructions: for bladder scan greater than 400 mL
Vital Signs As Directed
Frequency: Per unit guidelines
Oxygen Therapy [O2 Therapy] [RESP] Routine
Titrate/Wean O2 to maintain O2 sat greater than (%): 94
DX Deep Vein Thrombosis Video Routine
04/09/24 Breakfast
BRAT
Basic Metabolic Panel IN AM
Complete Blood Count/No Diff IN AM
Magnesium IN AM
Phosphorus IN AM
04/09/24 08:00
Exemestane Non-Form [Aromasin] 25 mg PO DAILY
Pyridoxine [Vitamin B-6] 100 mg PO DAILY
Sodium Bicarbonate 650 mg PO BID
Vitamin B Complex with C [B COMPLEX w/VITAMIN C] 1 caplet PO DAILY
selenium 200 mcg PO DAILY
Abnormal Lab Results
04/08/24 04/08/24
20:28 23:57
RBC 3.63 L 10^6/uL
(4.20-5.40)
Hgb 10.8 L g/dL
(12.0-16.0)
Hct 31.8 L %
(37.0-47.0)
Absolute Lymphs (auto) 0.8 L 10^3/uL
(1.2-3.4)
Neutrophils % 80.5 H %
(42.2-75.2)
Lymphocytes % 9.9 L %
(20.5-51.1)
VBG pH 7.28 L
(7.32-7.43)
VBG HCO3 18.8 L mmol/L
(22-27)
Chloride 111 H mmol/L
(98-107)
Carbon Dioxide 17 L mmol/L
(22-30)
BUN 26 H mg/dl
(7-17)
Creatinine 2.1 H mg/dL
(0.6-1.0)
Glucose 153 H mg/dl
(70-99)
ALT 36 H U/L
(0-35)
Lipase 307 H U/L
(23-300)
04/08/24 20:28
04/08/24 20:28
Vital Signs
Initial and Last Documented VS:
Initial Vital Signs
Temp Pulse Resp BP Pulse Ox
98.0 F 71 20 142/82 99
04/08/24 20:22 04/08/24 20:22 04/08/24 20:22 04/08/24 20:22 04/08/24 20:22
Last Documented Vital Signs
Temp Pulse Resp BP Pulse Ox
98.0 F 59 22 121/67 97
04/08/24 20:22 04/09/24 04:00 04/09/24 00:07 04/09/24 04:00 04/09/24 04:00
MDM/Problems Addressed
MDM/Problems Addressed:
History and exam concerning for clinical dehydration, from continual GI loss as well as decreased appetite. Patient will be admitted for further eval treatment, including further IV hydration. Will hold off CT scan at this time, but with
consideration to obtain as an inpatient, if her symptoms persist or worsen.
*EKG
Interpreted by ED Provider?: Yes
EKG Intrepretation Date: 04/09/24
Heart Rate: 70
Rate: normal
Rhythm: sinus
Oblong: normal axis
*Critical Care Note
Total Time (30-74mins, 75-104mins- exclusive of procedures): Not Applicable
ED Attending Note
-
Portions of this chart may have been created with voice recognition software.� Occasional wrong word or��sound alike� substitutions may have occurred due to the inherent limitations of voice recognition software.
Discharge Plan
Departure
Patient Disposition: Admit
Date of Disposition: 04/09/24
Time of Disposition: 01:01
Admit to: Med/Surg
Presentation/result/management discussed w/ accepting MD/DO: Hospitalist
Discharge Problem:
Dehydration, Nausea & vomiting
Interventions
Interventions:
*Risk Screen - Suicide Last Done: 04/08/24 23:42
*General Assessment Last Done: 04/08/24 23:42
*Neglect/Abuse Screening Last Done: 04/08/24 23:42
PU-Hpyzwz-Raccltugzc Assessment Last Done: 04/09/24 00:08
[2024-04-08 23:21] LABS: Magnesium 1.8 mg/dl (1.6-2.3)
[2024-04-08 23:41] VITALS: BP 139/84
[2024-04-08 23:42] VITALS: BMI 21.7
[2024-04-08] MEDS: NSS 1000 IV (23:59)
[2024-04-09] VITALS (15 sets, daily range): BP systolic 121–164; BP diastolic 67–91; BMI 21.7
[2024-04-09] MEDS: ZOFRAN 4 MG IV ×4 (00:05→21:30)
[2024-04-09 00:07] LABS: Venous Blood Gas B.E. -7.5 mmol/L (-4 to +4); Venous Blood Gas HCO3 18.8 mmol/L (22-27); Venous Blood Gas O2 Sat % 86.1 %; Venous Blood Gas pCO2 40 mmHg (35-48); Venous Blood Gas pH 7.28 (7.32-7.43); Venous Blood Gas pO2 48 mmHg (30-50)
[2024-04-09] MEDS: PROTONIX IV 40 MG IV ×2 (00:11→21:29)
[2024-04-09] MEDS: NSS 1000 IV (01:55)
[2024-04-09] MEDS: MORPHINE SULFATE 2 MG IV (01:57)
--- NOTE | 2024-04-09 02:06 | HPS.HSE ---
Family Physician
-
Family Physician: Jon Mitchell
Chief Complaint
-
Fatigue, Nausea
History of Present Illness
Patient is a 63y F with PMH significant for obesity s/p gastric bypass and CKD who presents to ED complaining of persistent symptoms of fatigue, nausea / emesis, loose stools, abdominal discomfort and intermittent fevers. Patient was
hospitalized here 03/19 - 03/23 with similar symptoms - felt at that time to be secondary to foodborne illness / enteritis. She had no diarrhea during her stay and so stool studies could not be performed. Patient was treated with abx and discharged
on PO Augmentin. She states that she felt better for maybe 1-2 days before her symptoms returned.
She states that she has nausea that is better after eating and worse on an empty stomach, She has intermittent emesis / dry heaves. She has loose stools - but typically only 1-2 per day. Not black, bloody, etc.
She reports intermittent 'fevers' at home up to 99 and has been taking Tylenol for this.
She denies any new symptoms or any new medications. She denies any sick contacts with similar symptoms.
Medical History
Past Medical History
Past Medical History: Reports Other
Additional Past Medical History:
Obesity
CKD III
History of Pancreatitis
History of DM-II
Breast Cancer
Past Surgical History: Reports Other
Additional Past Surgical History:
Angelina-en-Y Gastric Bypass (2019)
Cholecystectomy
Social History
Tobacco: Non-smoker
Alcohol: None
Drug: None
Family History
Family History: Not pertinent
Allergies / Home Medications
Allergies reflects when Allergies were last updated in [facility].
Home Medications with original date entered in [facility]
Allergy/Medication List:
Allergies
Allergy/AdvReac Type Severity Reaction Status Date / Time
Sulfa (Sulfonamide Allergy Unknown Verified 04/08/24 20:22
Antibiotics)
Home Medications
exemestane 25 mg tablet 25 mg PO DAILY 03/19/24
pyridoxine (vitamin B6) 25 mg tablet 100 mg PO DAILY 03/19/24
vitamin B complex 1 tab PO DAILY 03/19/24
cholecalciferol (vitamin D3) 250 mcg (10,000 unit) tablet 250 mcg PO DAILY 04/09/24
omeprazole 40 mg capsule,delayed release 40 mg PO DAILY 04/09/24
selenium 200 mcg tablet 200 mcg PO DAILY 04/09/24
Review of Systems
-
History Source: Patient
A 12 point ROS was completed and negative except as noted: Yes
Constitutional: Reports Fever and Fatigue; Denies Chills
EENT: Denies Sore Throat
Respiratory: Denies Cough or Trouble Breathing
Cardiac: Denies Chest Pain or Palpitations
Abdomen/GI: Reports Abdominal Pain, Nausea, Vomiting, Diarrhea and Anorexia; Denies Bloody Stools or Black Stools
: Denies Dysuria, Frequency or Flank Pain
Musculoskeletal: Denies Joint Pain, Joint Swelling or Edema
Neurological: Reports Headache and Other (Vision changes / floaters); Denies Dizzy
Psych: Denies Depression or Anxiety
Physical Exam
Vital Signs
Vital Signs
Temp Pulse Resp BP Pulse Ox
98.0 F 74 22 136/77 98
04/08/24 20:22 04/09/24 01:45 04/09/24 00:07 04/09/24 01:30 04/09/24 01:45
Physical Exam
General: Other (63y F in no acute distress. Pos pallor.)
HEENT: Moist mucous membranes and PERRLA
Respiratory: Clear; No Wheezes, Rales or Rhonchi
Cardiac: S1/S2 and Regular Rhythm; No Murmur
GI: Soft, Non Distended, Normal Bowel Sounds and Other (Mildly, diffusely tender.)
Musculoskeletal: No Clubbing, No Cyanosis and No Edema
Neuro: AO x 3
Laboratory Results
-
04/08/24 20:28
04/08/24 20:
Laboratory Results
Lactic Acid 1.2 mmol/L (0.7-2.0) 04/08/24 20:
Total Bilirubin 0.2 mg/dl (0.2-1.3) 04/08/24 20:
AST 25 U/L (14-36) 04/08/24 20:
ALT 36 U/L (0-35) H 04/08/24 20:
Alkaline Phosphatase 110 U/L (38-126) 04/08/24:
Lipase 307 U/L (23-300) H 04/08/24 20:
Impression/Plan
-
A/P: Patient is a 63y F with PMH significant for prior Angelina-en-Y bypass and recent admission for presumed gastroenteritis who presents to ED complaining of recurrent / persistent symptoms.
N/V/D
- Admit for further evaluation and treatment.
- Etiology is unclear at this point.
- Would not expect persistent infectious enteritis.
- Check stool studies if possible .
- Follow temperature curve, symptoms, exams.
- IVF support / volume replacement.
- Monitor labs / lytes for changes.
- Previously abnormal LFTs appear improved.
- Hepatitis panel was negative.
- GI evaluation for any additional recommendations.
- Follow for clinical improvement.
CKD III
Non-Gapped Metabolic Acidosis
- ? acidosis due to renal disease v GI losses.
- ? if systemic symptoms are due to / not cause of acidosis?
- IVFs as noted above.
- Begin PO supplemental bicarb and follow for improvement.
- Follows with Nephrology as an outpatient.
Anemia of Chronic Disease
- Stable. Hgb somewhat improved from prior / recent baseline.
- No noted blood loss per patient.
- Recent iron studies were unremarkable.
s/p Bariatric Surgery
- Continue usual vitamins / supplements.
- Check Vit D levels given high replacement dose (pt takes 10k units daily).
History of Breast Cancer
- Continue exemestane.
DVT prophylaxis: SCDs
Code Status: Full
[2024-04-09] MEDS: LR 1000 IV ×3 (05:16→21:33)
[2024-04-09 05:48] LABS: Hematocrit 31.4 % (37.0-47.0); Hemoglobin 10.4 g/dL (12.0-16.0); Mean Corp Hgb Conc. 33.1 g/dL (33.0-37.0); Mean Corpuscular Hgb 30.7 pg (27.0-31.0); Mean Corpuscular Volume 92.6 fL (81.0-99.0); Mean Platelet Volume 10.4 fL (7.4-10.4); Platelet Count 173 10^3/uL (130-400); Red Blood Cell Count 3.39 10^6/uL (4.20-5.40); White Blood Cell Count 5.8 10^3/uL (4.8-10.8)
[2024-04-09 06:25] LABS: Blood Urea Nitrogen 23 mg/dl (7-17); Calcium 8.5 mg/dl (8.4-10.2); Carbon Dioxide 19 mmol/L (22-30); Chloride 115 mmol/L (98-107); Estimated Creatinine Clearance 25 ml/min; Glucose 92 mg/dl (70-99); Magnesium 1.7 mg/dl (1.6-2.3); Phosphorus 3.2 mg/dl (2.5-4.5); Potassium 4.4 mmol/L (3.5-5.1); Sodium 145 mmol/L (135-145); eGFR 27.21
[2024-04-09 06:39] LABS: Vitamin D, 25-OH*** 53.5 ng/mL (30-80)
--- NOTE | 2024-04-09 07:38 | W.PN.UPDATE ---
Update Note
Progress Note Update
Patient seen and examined. 63-year-old female admitted with nausea and vomiting since March 13, 2024. She was treated at [facility] from 03/19/2024 through 03/26/2024.
She has a history of gastric bypass, will check thiamine/vitamin B1 levels, give IV thiamine.
Appreciate GI input, for endoscopy today.
--- NOTE | 2024-04-09 08:25 | CON.GI ---
Addendum entered and electronically signed by Hao Connors MD 04/09/24 14:16:
due to gfr cannot do iv abril l do po contrast
Addendum entered and electronically signed by Hao Connors MD 04/09/24 12:44:
I saw and examined the patient.
The PAYROLL ACCOUNTING CLERK or PA's note was reviewed and I agree with the note.
Comment: 63 yo F pmh gastric bypass, pancreatitis, recent admission 03/19-03/23 with likely gastroenteritis 2/2 cottage cheese and Andrade's given antibiotics presenting with ongoing n/v/abdominal pain. She has 1-2 loose stools a day (per patient
only had one day of severe diarrhea). Has lost 8 lb due to symptoms. Abd pain worse with retching. Also with a lot of weakness. Temps at home only 99.
Plan was EGD today to evaluate for anastomotic ulcer as etiology of symptoms but she was actively retching in endo so this was cancelled with concern for aspiration. Will increase protonix to 40 bid. Continue zofran prn and given a dose in
endoscopy.
Will get CT with iv/po contrast for further eval (last admit done without contrast). Lipase normal but does have history of pancreatitis. Will place tentatively on for EGD tomorrow pending CT findings and pt clinical symptoms. Will do trial of
clear liquid today npo after midnight.
Original Note:
Consultation
-
Date/Time Consultation Requested: 04/09/24429
Date/Time Consultation Performed: 04/09/24824
Requesting Provider: Damon Webber DO
Performing Provider: LINDA Mcgrath, Shellie Connors MD
Medical History
Chief Complaint / HPI
Chief Complaint: n/v/abd pain
History of Present Illness:
63-year-old female with past medical history of breast cancer status post left-sided lumpectomy with chemo and radiation, chronic kidney disease, hypertension, hyperlipidemia, diet-controlled diabetes, history of Angelina-en-Y gastric bypass (2019),
prior history of pancreatitis 2 years ago (felt to be from passed gallstone) with recent admission 03/19-03/23/24 with concern for gastroenteritis after eating ? bad cottage cheese and Jimenez's food, sepsis, acidosis with likely infectious
etiology. She was placed on Augmentin. She was also noted with anemia and elevated transaminase. She now returns with persistent nausea and vomiting with dehydration since last month. Repeat labs on admission with continued hbg 10.8, creat 2.1
(near baseline), Co2 17 with metabolic acidosis, improved LFT's with bili 0.2, AST 25, ALT 36, alk phos 110 (improved from last admission) and lipase 307(prior 295).
In review with patient she admits to really minimal improvement since onset of symptoms last month. She admits to continued increased fatigue with abdominal pain in mid abdomen. Pain may improved with eating but still constant discomfort.
She has persistent nausea with small amounts of vomiting mostly dry heaves and mild intermittent diarrhea. + wt loss 7 lbs since onset. She has chronic GERD that is stable. No rectal bleeding. ? colon years ago with polyps- [place]ington. EGD with hx
bypas years ago. No NSAID or new medications.
Past Medical History
Past Medical History: Cancer (Breast Cancer s/p L lumpectomy XTR and CTX), GERD, HTN, Hypercholesterolemia, NIDDM and Other (CKD, pancreatitis)
Past Surgical History: Cholecystectomy, Gynecological (Tubal ligation), Orthopedic (Foot, hand, knee) and Other (left breast lumpectomy, Angelina-en-Y gastric bypass (2019))
Social History
Tobacco: Former Smoker
Alcohol: None
Drug: None
Personal:
Living: With Family (son and grandchildren )
Family History
Family History: Other (Mother with history of rectal cancer, son with rectal CA)
Allergies / Home Medications
Allergy/AdvReac Type Severity Reaction Status Date / Time
Sulfa (Sulfonamide Allergy Unknown Verified 04/08/24 20:22
Antibiotics)
�Medication �Instructions �Recorded
exemestane 25 mg tablet 25 mg PO DAILY 03/19/24
pyridoxine (vitamin B6) 25 mg 100 mg PO DAILY 03/19/24
tablet
vitamin B complex 1 tab PO DAILY 03/19/24
cholecalciferol (vitamin D3) 250 250 mcg PO DAILY 04/09/24
mcg (10,000 unit) tablet
omeprazole 40 mg capsule,delayed 40 mg PO DAILY 04/09/24
release
selenium 200 mcg tablet 200 mcg PO DAILY 04/09/24
Review of Systems
-
History Source: Patient
Constitutional: Reports Fever (99 range ), Weight Loss and Fatigue
EENT: Reports No Symptoms
Respiratory: Reports No Symptoms
Cardiac: Reports No Symptoms
Abdomen/GI: Reports Abdominal Pain, Nausea, Vomiting and Diarrhea
: Reports No Symptoms
Musculoskeletal: Reports No Symptoms
Skin: Reports No Symptoms
Neurological: Reports Weakness
Endocrine: Reports No Symptoms
Hematologic/Lymphatic: Reports Bleeding
Vital Signs
Temp Pulse Resp BP Pulse Ox
98.0 F 59 22 121/67 97
04/08/24 20:22 04/09/24 04:00 04/09/24 00:07 04/09/24 04:00 04/09/24 04:00
Physical Exam
Exam
General: Well Developed, Well Nourished and No Apparent Distress
HEENT: Normocephalic and Anicteric
Respiratory: Clear
Cardiac: Regular Rhythm
GI: Soft, Non Distended and Tender (mid abdomen )
Musculoskeletal: No Clubbing and No Cyanosis
Skin: Warm and Dry
Neuro: Awake, Alert and AO x 3
Psych: Calm
Results
WBC 5.8 10^3/uL (4.8-10.8) 04/09/24 05:15
Hgb 10.4 g/dL (12.0-16.0) L 04/09/24 05:15
Hct 31.4 % (37.0-47.0) L 04/09/24 05:15
MCV 92.6 fL (81.0-99.0) 04/09/24 05:15
Plt Count 173 10^3/uL (130-400) 04/09/24 05:15
Absolute Neuts (auto) 6.4 10^3/uL (1.4-6.5) 04/08/24 20:28
Sodium 145 mmol/L (135-145) 04/09/24 05:15
Potassium 4.4 mmol/L (3.5-5.1) 04/09/24 05:15
Chloride 115 mmol/L (98-107) H 04/09/24 05:15
Carbon Dioxide 19 mmol/L (22-30) L 04/09/24 05:15
BUN 23 mg/dl (7-17) H 04/09/24 05:15
Creatinine 2.0 mg/dL (0.6-1.0) H 04/09/24 05:15
Calcium 8.5 mg/dl (8.4-10.2) 04/09/24 05:15
Total Bilirubin 0.2 mg/dl (0.2-1.3) 04/08/24 20:28
AST 25 U/L (14-36) 04/08/24 20:28
ALT 36 U/L (0-35) H 04/08/24 20:28
Alkaline Phosphatase 110 U/L (38-126) 04/08/24 20:28
Lipase 307 U/L (23-300) H 04/08/24 20:28
Diagnostic Image Results:
12/26/23 CT A/p oral only
IMPRESSION: 11 mm calculus within the lower pole the right kidney. Mild to moderate right pelvicalyceal and ureteral dilation, with ureteral dilation involving the proximal to mid right ureter. No evidence for right ureteral calculus. Findings may
indicate a recently passed calculus, versus ascending urinary tract infection.
Slight prominence of the left renal pelvis, compatible with extrarenal pelvis.
Bilateral renal cysts.
Mobile cecum which is located in the left lower abdomen and upper pelvis, with the base of the cecum directed superiorly. No evidence for bowel obstruction or free intraperitoneal air. The appendix appears normal.
Evidence of gastric bypass surgery. No contrast extension into the excluded stomach. Small central hiatal hernia.
Bony degenerative changes as described.
03/19/14 CT abdomen and pelvis without contrast:
IMPRESSION:
Liquid stool in the colon which can be seen in the setting of diarrheal disease. Otherwise, no acute abnormality in the abdomen or pelvis.
Colonic diverticulosis without acute diverticulitis.
Stable nonobstructing calculi in the lower pole of the right kidney.
Prior GI Procedures:
EGD: Patient believes she had this prior to her Angelina-en-Y gastric bypass. Does not recall results
Colonoscopy: Performed at [facility] approximately 5 years ago. Patient believes she had polyps. Due for repeat colonoscopy at this time
Assessment / Plan
-
63-year-old female with past medical history of breast cancer status post left-sided lumpectomy with chemo and radiation, chronic kidney disease, hypertension, hyperlipidemia, diet-controlled diabetes, history of Angelina-en-Y gastric bypass (2019),
prior history of pancreatitis 2 years ago (felt to be from passed gallstone) with recent admission 03/19-03/23/24 with concern for gastroenteritis after eating ? bad cottage cheese and Jimenez's food, sepsis, acidosis with likely infectious
etiology. She was placed on Augmentin. She was also noted with anemia and elevated transaminase. She now returns with persistent nausea and vomiting with dehydration since last month. Repeat labs on admission with continued hbg 10.8, creat 2.1
(near baseline), Co2 17 with metabolic acidosis, improved LFT's with bili 0.2, AST 25, ALT 36, alk phos 110 (improved from last admission) and lipase 307(prior 295).
Impression:
persistent nausea/dry heaves/abdominal pain
prior admission with similar
Elevated transaminases- improved
Metabolic acidosis
Anemia-> there is a level of underlying anemia with history of gastric bypass. It appears patient's last labs show hemoglobin of 11 at baseline. Minimal change since last admission in 10 range
CKD
hx gastric bypass
hx breast CA with prior lumpectomy, chemo, radiation
Plan:
Etiology of ongoing symptoms related to prolonged infectious symptoms with enteritis but cannot rule out other etiology such as anastomotic ulcer with hx bypass, radiation related enteritis with prior breast radiation vs other
less likely medication related no med changes and has been on Exemestane for years
plan for EGD today
if neg can consider contrast enhanced CT as last study done non contrast
NPO
add PPI daily
antiemetics
due OP colonoscopy when improved
LFT's improved from last admission, hep panel neg
stool cx pending to be sent if further diarrhea
cont correction of acidosis per hospitalist team
.
-
-
Thank you for consultation and allowing me to participate in the patient's care. Please call the adoption coordinator GI physician during the after hours with any questions or concerns.
[2024-04-09] MEDS: B COMPLEX w/VITAMIN C 1 CAPLET PO (10:07)
[2024-04-09] MEDS: VITAMIN B-6 100 MG PO (10:07)
[2024-04-09] MEDS: AROMASIN 25 MG PO (10:08)
[2024-04-09] MEDS: TYLENOL 650 MG PO ×2 (10:08→22:11)
--- NOTE | 2024-04-09 12:50 | SUR.PHASEI ---
Received pt from GI lab on stretcher. Pt.'s procedure was cancelled no sedation given. Pt resting in bay 1 waiting for inpatient bed availability. BP 150/86 HR 61. Sat's 96% on RA. Denies any pain or nausea. 20 R AC with LR running at 150ml/hr.
Apple juice given. Will continue to monitor pt. closely
[2024-04-09] MEDS: THIAMINE INJECTION 200 MG IV (15:17)
[2024-04-09] MEDS: SODIUM BICARBONATE 1300 MG PO ×2 (15:18→22:11)
[2024-04-09] MEDS: OMNIPAQUE 50 ML PO (16:30)
--- NOTE | 2024-04-09 19:15 | PTCARENOTE ---
Pt received on change of shift. Pt AAOX3, VSS, and receptive to room, bed rails, and call lowry. Pt bed in lowest position and call lowry within reach. Pt informed on importance of call lowry usage, pt relayed understanding and cooperation. Will
continue with current plan of care.
[2024-04-09] MEDS: NSS (PRESERVATIVE FREE) 10 ML IV (21:29)
[2024-04-09 22:35] LABS: Urine Albumin Trace (Neg - Trace); Urine Bilirubin Negative (Negative); Urine Character Clear (Clear); Urine Color Yellow; Urine Glucose Negative (Negative); Urine Ketone Negative (Negative); Urine Leukocyte Trace (Negative); Urine Nitrite Negative (Negative); Urine Occult Blood Negative (Negative); Urine Urobilinogen Negative (Neg - 1+)
[2024-04-09 23:08] LABS: Urine Bacteria Few (Negative); Urine Mucus Few; Urine Red Blood Cell 0-2 /HPF (0-2); Urine Squamous Cell 16-20 /LPF (Few); Urine White Cell 16-20 /HPF (0-5)
[2024-04-10] VITALS (8 sets, daily range): BP systolic 113–153; BP diastolic 59–77; PULSE 18–64
[2024-04-10] MEDS: TYLENOL 650 MG PO ×4 (02:48→21:38)
[2024-04-10] MEDS: ZOFRAN 4 MG IV ×2 (08:08→14:52)
[2024-04-10 08:41] LABS: Hematocrit 29.1 % (37.0-47.0); Hemoglobin 9.8 g/dL (12.0-16.0); Mean Corp Hgb Conc. 33.7 g/dL (33.0-37.0); Mean Corpuscular Hgb 29.6 pg (27.0-31.0); Mean Corpuscular Volume 87.9 fL (81.0-99.0); Mean Platelet Volume 11.6 fL (7.4-10.4); Platelet Count 122 10^3/uL (130-400); Red Blood Cell Count 3.31 10^6/uL (4.20-5.40); Red Cell Dist. Width 13.2 % (11.5-14.5); White Blood Cell Count 5.6 10^3/uL (4.8-10.8)
[2024-04-10] MEDS: LR 1000 IV (10:37)
[2024-04-10] MEDS: SODIUM BICARBONATE 1300 MG PO ×2 (10:37→17:14)
[2024-04-10] MEDS: VITAMIN B-6 100 MG PO (10:37)
[2024-04-10] MEDS: B COMPLEX w/VITAMIN C 1 CAPLET PO (10:38)
[2024-04-10] MEDS: THIAMINE INJECTION 200 MG IV (10:52)
[2024-04-10] MEDS: PROTONIX IV 40 MG IV ×2 (10:53→21:33)
[2024-04-10] MEDS: NSS (PRESERVATIVE FREE) 10 ML IV ×2 (10:53→21:34)
[2024-04-10] MEDS: AROMASIN 25 MG PO (11:20)
[2024-04-10 12:11] LABS: ALT (SGPT) 34 U/L (0-35); AST (SGOT) 30 U/L (14-36); Albumin 3.8 g/dl (3.5-5.0); Alkaline Phosphatase 106 U/L (38-126); Blood Urea Nitrogen 20 mg/dl (7-17); Carbon Dioxide 17 mmol/L (22-30); Chloride 109 mmol/L (98-107); Estimated Creatinine Clearance 25 ml/min; Glucose 88 mg/dl (70-99); Potassium 4.3 mmol/L (3.5-5.1); Sodium 140 mmol/L (135-145); Total Bilirubin 0.4 mg/dl (0.2-1.3); Total Protein 6.3 g/dl (6.3-8.2); eGFR 27.21
--- NOTE | 2024-04-10 14:54 | W.PN.HOSP.TC ---
Today's Communication/Plan
-
see bold
Assessment / Plan
Assessment / Plan
HPI: 63y F with PMH significant for obesity s/p gastric bypass and CKD who presents to ED complaining of persistent symptoms of fatigue, nausea / emesis, loose stools, abdominal discomfort and intermittent fevers. Patient was hospitalized here
03/19 - 03/23 with similar symptoms - felt at that time to be secondary to foodborne illness / enteritis. She had no diarrhea during her stay and so stool studies could not be performed. Patient was treated with abx and discharged on PO Augmentin.
She states that she felt better for maybe 1-2 days before her symptoms returned.
N/V/loose stools
- Occurring since 03/13/2024
- Etiology is unclear at this point
- Appreciate GI input, 04/10 EGD negative, fundic gland biopsy pending
- GI recommends clear liquid diet, advance as tolerated
- Give IV thiamine since she has had a history of gastric bypass and is high risk for B1 deficiency
- Continue vitamin B6, vitamin B complex, add multivitamin
S/p Bariatric Surgery
- Continue usual vitamins / supplements.
- Rec f/u w/ Bariatric surgeon Dr. Kwan at [place] to see if nausea is related to surgery or malabsorption
CKD III
Non-Gapped Metabolic Acidosis
- Started sodium bicarb, increased to 1950 mg 3 times daily and follow for improvement.
- Follows with Nephrology as an outpatient.
- Cr at baseline, continue to trend
Anemia of Chronic Disease
- Stable, monitor
History of Breast Cancer
- Continue exemestane.
DVT prophylaxis: Subcu Lovenox
Code Status: Full
Total time spent to see the patient on the floor, examine the patient, review data and lab results, discuss treatment plan with patient, nursing staff around 51 minutes.
Physical Exam
General: No acute distress
HEENT: Normocephalic, Atraumatic, EOMI, MMM
Respiratory: Clear to Auscultation bilaterally
Cardiac: Normal S1/S2, Regular Rate and Rhythm
GI: Soft, Nontender, Nondistended, Normal Bowel Sounds
Extremities: No Clubbing, Cyanosis, or Edema
Neuro: Nonfocal/Grossly Intact
Psych: Calm, Cooperative
Anticipated Discharge: 24 - 48 hours
Subjective/Interval History
-
Date of Service: April 10, 2024
Patient's nausea improved. She tolerated her clear liquid diet. She is asking to be advance to solids. No fever, no abdominal pain.
Objective Data
-
Labs:
Laboratory Results
04/10/24
07:56
WBC 5.6
Hgb 9.8 L
Hct 29.1 L
Plt Count 122 L D
Sodium Pending
Potassium Pending
Chloride Pending
Carbon Dioxide Pending
BUN Pending
Creatinine Pending
Glucose Pending
Calcium Pending
Total Bilirubin Pending
AST Pending
ALT Pending
Alkaline Phosphatase Pending
Vital Signs:
Vital Signs
Temp Pulse Resp BP Pulse Ox
98.5 F 60 18 147/77 98
04/10/24 07:18 04/10/24 07:18 04/10/24 07:18 04/10/24 07:18 04/10/24 07:18
I&O
04/09/24 04/10/24 04/11/24
06:59 06:59 06:59
Intake Total 900 / 900
Output Total 50 / 50
Balance 850 / 850
--- NOTE | 2024-04-10 16:16 | CM ---
Met with patient at bedside; initial assessment completed
Pharmacy verified: [facility] @ [address] [place] [address], [place], [place]
Patient lives in a 2 story home including basement; 5 steps to enter; 12 steps down to laundry area in basement; railings present; sons ages 40 & 37 live with her; bathroom has tub w/shower
PLOF: reports that she has had no energy since 03/13/24; not bathing often; ambulates without a device; her son is preparing meals
NO DME
NO SNF or Home Health utilization history
One of her sons will transport home
Reported that she does not Medication Insurance Coverage
Discharge plan to be determined pending hospital course; CM will monitor for DC services/needs
[2024-04-10] MEDS: THERAGRAN 1 TABLET PO (17:16)
[2024-04-10] MEDS: LOVENOX 30 MG SC (17:16)
[2024-04-10] MEDS: SODIUM BICARBONATE 1950 MG PO (21:33)
[2024-04-11] MEDS: TYLENOL 650 MG PO (06:06)
[2024-04-11] MEDS: ZOFRAN 4 MG IV ×2 (07:17→17:45)
[2024-04-11 07:47] VITALS: BP 141/85
[2024-04-11 08:47] VITALS: BP 141/85
[2024-04-11 09:06] LABS: Blood Urea Nitrogen 21 mg/dl (7-17); Calcium 8.4 mg/dl (8.4-10.2); Carbon Dioxide 21 mmol/L (22-30); Chloride 107 mmol/L (98-107); Estimated Creatinine Clearance 25 ml/min; Glucose 95 mg/dl (70-99); Magnesium 1.7 mg/dl (1.6-2.3); Phosphorus 2.9 mg/dl (2.5-4.5); Potassium 4.4 mmol/L (3.5-5.1); Sodium 142 mmol/L (135-145); eGFR 27.21
--- NOTE | 2024-04-11 09:21 | W.PN.HOSP.TC ---
Today's Communication/Plan
-
Discharge tomorrow
Assessment / Plan
Assessment / Plan
HPI: 63y F with PMH significant for obesity s/p gastric bypass and CKD who presents to ED complaining of persistent symptoms of fatigue, nausea / emesis, loose stools, abdominal discomfort and intermittent fevers. Patient was hospitalized here
03/19 - 03/23 with similar symptoms - felt at that time to be secondary to foodborne illness / enteritis. She had no diarrhea during her stay and so stool studies could not be performed. Patient was treated with abx and discharged on PO Augmentin.
She states that she felt better for maybe 1-2 days before her symptoms returned.
N/V/loose stools
- Occurring since 03/13/2024
- Etiology is unclear at this point
- Appreciate GI input, 04/10 EGD negative, fundic gland biopsy pending
- Currently tolerating solids
- Give IV thiamine since she has had a history of gastric bypass and is high risk for B1 deficiency
- Continue vitamin B6, vitamin B complex, added multivitamin
- Currently on Protonix 40 mg twice a day, add Pepcid 20 mg at bedtime
S/p Bariatric Surgery
- Continue usual vitamins / supplements.
- Rec f/u w/ Bariatric surgeon Dr. Kwan at [place] to see if nausea is related to surgery or malabsorption
CKD III
Non-Gapped Metabolic Acidosis
- Started sodium bicarb, increased to 1950 mg 3 times daily and follow for improvement.
- Follows with Nephrology as an outpatient.
- Cr at baseline, continue to trend
Anemia of Chronic Disease
- Stable, monitor
History of Breast Cancer
- Continue exemestane.
DVT prophylaxis: Subcu Lovenox
Code Status: Full
Total time spent to see the patient on the floor, examine the patient, review data and lab results, discuss treatment plan with patient, nursing staff around 41 minutes.
Physical Exam
General: No acute distress
HEENT: Normocephalic, Atraumatic, EOMI, MMM
Respiratory: Clear to Auscultation bilaterally
Cardiac: Normal S1/S2, Regular Rate and Rhythm
GI: Soft, Nontender, Nondistended, Normal Bowel Sounds
Extremities: No Clubbing, Cyanosis, or Edema
Neuro: Nonfocal/Grossly Intact
Psych: Calm, Cooperative
Anticipated Discharge: Within 24 hours
Subjective/Interval History
-
Date of Service: April 11, 2024
Patient reports her nausea is worse in the morning. Unclear if this is related to acid. No vomiting. She is tolerating solids. No fever. No chest pain, no shortness of breath.
Objective Data
-
Labs:
Laboratory Results
04/11/24
07:58
Sodium 142
Potassium 4.4
Chloride 107
Carbon Dioxide 21 L
BUN 21 H
Creatinine 2.0 H
Glucose 95
Calcium 8.4
Vital Signs:
Vital Signs
Temp Pulse Resp BP Pulse Ox
99.2 F 64 18 141/85 96
04/11/24 07:47 04/11/24 07:47 04/11/24 07:47 04/11/24 07:47 04/11/24 07:47
I&O
04/10/24 04/11/24 04/12/24
06:59 06:59 06:59
Intake Total 900 / 900 960 / 960
Output Total 50 / 50
Balance 850 / 850 960 / 960
--- NOTE | 2024-04-11 11:05 | W.PN.GI.CBS2 ---
Today's Communication / Plan
-
GI s/o
Assessment / Plan
-
63-year-old female with past medical history of breast cancer status post left-sided lumpectomy with chemo and radiation, chronic kidney disease, hypertension, hyperlipidemia, diet-controlled diabetes, history of Angelina-en-Y gastric bypass (2019),
prior history of pancreatitis 2 years ago (felt to be from passed gallstone) with recent admission 03/19-03/23/24 with concern for gastroenteritis after eating ? bad cottage cheese and Jimenez's food, sepsis, acidosis with likely infectious
etiology. She was placed on Augmentin. She was also noted with anemia and elevated transaminase. She now returns with persistent nausea and vomiting with dehydration since last month. Repeat labs on admission with continued hbg 10.8, creat 2.1
(near baseline), Co2 17 with metabolic acidosis, improved LFT's with bili 0.2, AST 25, ALT 36, alk phos 110 (improved from last admission) and lipase 307(prior 295).
Pt is feeling better, tolerating oral solid diet. The etiology of her nausea is unclear; likely multifactorial, ? recent gastroenteritis/CKD/other. GI s/o.
Total Time Spent with Patient (in minutes): 35
Subjective
Subjective
Date of Service: April 11, 2024
Feeling better, eating
Objective
Data Reviewed
Laboratory Data:
Laboratory Results
04/10/24 07:56
04/11/24 07:58
Laboratory Results
Phosphorus 2.9 mg/dl (2.5-4.5) 04/11/24 07:58
Magnesium 1.7 mg/dl (1.6-2.3) 04/11/24 07:58
Total Bilirubin 0.4 mg/dl (0.2-1.3) 04/10/24 10:24
AST 30 U/L (14-36) 04/10/24 10:24
ALT 34 U/L (0-35) 04/10/24 10:24
Alkaline Phosphatase 106 U/L (38-126) 04/10/24 10:24
Lipase 307 U/L (23-300) H 04/08/24 20:28
Vital Signs and I&O:
Vital Signs
Temp Pulse Resp BP Pulse Ox
99.2 F 64 18 141/85 96
04/11/24 07:47 04/11/24 07:47 04/11/24 07:47 04/11/24 07:47 04/11/24 07:47
I&O
04/10/24 04/11/24 04/12/24
06:59 06:59 06:59
Intake Total 900 / 900 960 / 960
Output Total 50 / 50
Balance 850 / 850 960 / 960
[2024-04-11] MEDS: B COMPLEX w/VITAMIN C 1 CAPLET PO (11:46)
[2024-04-11] MEDS: THIAMINE INJECTION 200 MG IV (11:46)
[2024-04-11] MEDS: SODIUM BICARBONATE 1950 MG PO ×3 (11:46→20:37)
[2024-04-11] MEDS: THERAGRAN 1 TABLET PO (11:46)
[2024-04-11] MEDS: AROMASIN 25 MG PO (11:47)
[2024-04-11] MEDS: PROTONIX IV 40 MG IV (11:47)
[2024-04-11] MEDS: NSS (PRESERVATIVE FREE) 10 ML IV (11:47)
[2024-04-11] MEDS: VITAMIN B-6 100 MG PO (11:48)
[2024-04-11 15:46] VITALS: BP 136/79
[2024-04-11] MEDS: LOVENOX 30 MG SC (17:36)
[2024-04-11] MEDS: PEPCID 20 MG PO (20:37)
[2024-04-11] MEDS: PROTONIX 40 MG PO (20:37)
[2024-04-11 23:00] VITALS: BP 141/71
[2024-04-12 07:13] VITALS: BP 132/72
--- NOTE | 2024-04-12 08:43 | W.PN.HOSP.TC ---
Today's Communication/Plan
-
Discharge today
Assessment / Plan
Assessment / Plan
HPI: 63y F with PMH significant for obesity s/p gastric bypass and CKD who presents to ED complaining of persistent symptoms of fatigue, nausea / emesis, loose stools, abdominal discomfort and intermittent fevers. Patient was hospitalized here
03/19 - 03/23 with similar symptoms - felt at that time to be secondary to foodborne illness / enteritis. She had no diarrhea during her stay and so stool studies could not be performed. Patient was treated with abx and discharged on PO Augmentin.
She states that she felt better for maybe 1-2 days before her symptoms returned.
N/V/loose stools
- Occurring since 03/13/2024
- Etiology is unclear at this point. Appreciate GI input, 04/10 EGD negative, fundic gland biopsy pending
- Currently tolerating solids
- Give IV thiamine since she has had a history of gastric bypass and is high risk for B1 deficiency
- Continue vitamin B6, vitamin B complex, added multivitamin
- Nausea improved with adding Pepcid 20 mg at bedtime�continue upon discharge
- Continue PPI at bedtime
- Medically stable for discharge, follow-up with PCP in 1 week, GI in 3-4 weeks, and her previous bariatric surgeon
S/p Bariatric Surgery
- Continue usual vitamins / supplements.
- Rec f/u w/ Bariatric surgeon Dr. Kwan at [place] to see if nausea is related to surgery or malabsorption
CKD III
Non-Gapped Metabolic Acidosis
- Resolved s/p sodium bicarb 1950 mg 3 times daily and follow for improvement.
- Follows with Nephrology as an outpatient.
- Cr at baseline, continue to trend
Anemia of Chronic Disease
- Stable, monitor
History of Breast Cancer
- Continue exemestane.
DVT prophylaxis: Subcu Lovenox
Code Status: Full
Physical Exam
General: No acute distress
HEENT: Normocephalic, Atraumatic, EOMI, MMM
Respiratory: Clear to Auscultation bilaterally
Cardiac: Normal S1/S2, Regular Rate and Rhythm
GI: Soft, Nontender, Nondistended, Normal Bowel Sounds
Extremities: No Clubbing, Cyanosis, or Edema
Neuro: Nonfocal/Grossly Intact
Psych: Calm, Cooperative
Anticipated Discharge: Today
Subjective/Interval History
-
Date of Service: April 12, 2024
No nausea this morning. She has been tolerating her diet. No fever. No chest pain, no shortness of breath.
Objective Data
-
Labs:
Laboratory Results
04/12/24
06:32
Sodium Pending
Potassium Pending
Chloride Pending
Carbon Dioxide Pending
BUN Pending
Creatinine Pending
Glucose Pending
Calcium Pending
Vital Signs:
Vital Signs
Temp Pulse Resp BP Pulse Ox
99.0 F 72 18 141/71 96
04/11/24 23:00 04/11/24 23:00 04/11/24 23:00 04/11/24 23:00 04/11/24 23:00
I&O
04/11/24 04/12/24 04/13/24
06:59 06:59 06:59
Intake Total 960 / 960 780 / 780
Balance 960 / 960 780 / 780
[2024-04-12 09:04] LABS: Blood Urea Nitrogen 22 mg/dl (7-17); Calcium 8.2 mg/dl (8.4-10.2); Carbon Dioxide 26 mmol/L (22-30); Chloride 105 mmol/L (98-107); Estimated Creatinine Clearance 24 ml/min; Glucose 79 mg/dl (70-99); Potassium 4.5 mmol/L (3.5-5.1); Sodium 141 mmol/L (135-145); eGFR 25.67
[2024-04-12] MEDS: THIAMINE INJECTION 200 MG IV (09:11)
[2024-04-12] MEDS: SODIUM BICARBONATE 1950 MG PO (09:12)
[2024-04-12] MEDS: AROMASIN 25 MG PO (09:12)
[2024-04-12] MEDS: B COMPLEX w/VITAMIN C 1 CAPLET PO (09:12)
[2024-04-12] MEDS: PROTONIX 40 MG PO (09:12)
[2024-04-12] MEDS: VITAMIN B-6 100 MG PO (09:12)
[2024-04-12] MEDS: THERAGRAN 1 TABLET PO (09:12)
--- NOTE | 2024-04-12 11:30 | W.DCSUMMARY ---
Discharge Summary
Discharge Data
Date of Admission: 04/09/24
Date of Discharge: 04/12/24
-
Pending Results: Yes
Additional Pending Results:
Biopsy of fundic gland polyp
Whole B1 level
Hospital Course
Discharge diagnosis:
Persistent nausea/vomiting, unclear etiology
Low-grade fever
Recent hospitalization for similar symptoms with presumed gastroenteritis
History of bariatric surgery
Stage III chronic kidney disease
Non-anion gap metabolic acidosis
Gastroesophageal reflux disease
Anemia of chronic disease
History of breast cancer
Consults: GI
04/10/2024 EGD
Impression: - Normal esophagus.
- Angelina-en-Y gastrojejunostomy with gastrojejunal
anastomosis characterized by healthy appearing mucosa.
- Multiple fundic gland polyps. Biopsied.
- Normal examined jejunum.
Recommendation: - Return patient to [facility] for [facility] care.
- Clear liquid diet. Advance diet as tolerated.
- Await pathology results.
Hospital course:
63-year-old male with a past medical history of obesity status post gastric bypass, stage III chronic kidney disease, and gastroesophageal reflux disease was admitted for persistent nausea, vomiting, fatigue. Patient was hospitalized here 03/19/24 -
03/23/24 with similar symptoms - felt at that time to be secondary to foodborne illness / enteritis. She states her symptoms have been present since 03/13/2024, improved for 1-2 days after her discharge before returning.
Patient was seen in conjunction with GI. She was treated with Protonix 40 mg twice daily. EGD was negative as above. She states that her nausea is worse in the morning, she feels that there is a lot of acid buildup from overnight. She was
started on Pepcid 20 mg at bedtime. She reports waking up at 3 AM to eat a snack, which helped her nausea.
It is unclear the etiology for her nausea/vomiting. She does have a history of gastric bypass, and is maintained on vitamin B complex and vitamin D3. Vitamin D levels are normal. She received IV thiamine while in the hospital.
Since her nausea improved with snacking and the addition of Pepcid, she is discharged home to continue Pepcid and omeprazole at night. She has been instructed to follow-up with her bariatric surgeon at [facility] to see if this is related to her
history of gastric bypass. She needs to follow-up with her primary care doctor in 1 week, and GI in the office in 3-4 weeks.
Disposition: Home self-care
Discharge planning: Required 43 minutes
Discharge Plan
-
Patient Disposition: Home (Routine Discharge)
Discharge Diagnosis/Procedures: Persistent nausea of unclear etiology, history of bariatric surgery, stage III chronic kidney disease, non-anion gap metabolic acidosis, anemia of chronic disease
Condition: Good
Diet: Low Fat and Low Cholesterol
Activity: As tolerated
Driving Restrictions: As prior to admission
Activity Restrictions/Additional Instructions:
Please take an [id number] vitamin daily.
Please follow-up with your bariatric surgeon to ensure that the nausea is not related to your history of bariatric surgery.
Follow-up with your primary care doctor in 1 week, and GI in the office in 3-4 weeks.
Referrals:
Hao Connors MD [Active] - in three to four weeks
Jon Mitchell MD [Family Provider] - in one week
Prescriptions:
New
famotidine 20 mg Tablet
20 mg PO HS Qty: 30 0RF
ondansetron 4 mg tablet,disintegrating
4 mg PO DAILY PRN (Reason: nausea and vomiting) Qty: 30 0RF
Continued
exemestane 25 mg Tablet
25 mg PO DAILY
pyridoxine (vitamin B6) 25 mg Tablet
100 mg PO DAILY
vitamin B complex Tablet
1 tab PO DAILY
selenium 200 mcg Tablet
200 mcg PO DAILY
cholecalciferol (vitamin D3) 250 mcg (10,000 unit) Tablet
250 mcg PO DAILY
Changed
omeprazole 40 mg Capsule,Delayed Release(Dr/Ec)
40 mg PO HS Qty: 0 0RF
Discharge Orders:
Discharge Patient (As Directed); Ordered 04/12/24
Ordered By: Saad Matamoros
Discharge Date and Time
Print Language: POLISH
--- NOTE | 2024-04-12 12:19 | CM ---
Patient is for discharge today to home no needs.
Plan; Home no needs.
[2024-04-12] MEDS: TYLENOL 650 MG PO (12:30)
[2024-04-12] MEDS: ZOFRAN 4 MG IV (13:27)
[2024-04-12 16:26] VITALS: BP 138/72
[2024-04-13 12:09] LABS: Vitamin B1, Whole Blood 107 nmol/L (70-180)
== END 2024-04-12 17:00 | disposition home or self-care (01) | DRG 392 ==
LOC: 4 WEST ACU 04:09
PROVIDERS: Emergency Medicine; Internal Medicine Gastroenterology; Nurse Practitioner Adult Health; ADMITTING PHYSICIAN Hospitalist; ATTENDING PHYSICIAN Family Medicine; CONSULT PHYSICIAN Internal Medicine Gastroenterology; EMERGENCY PHYSICIAN Emergency Medicine; FAMILY PHYSICIAN Family Medicine
PROC: 0DB68ZX Excision of Stomach, Via Natural or Artificial Opening Endoscopic, Diagnostic (ICD-10-PCS; 2024-04-10)
DX: R11.2 Nausea with vomiting, unspecified (principal); E87.20 Acidosis, unspecified; K31.7 Polyp of stomach and duodenum; N18.30 Chronic kidney disease, stage 3 unspecified; E11.22 Type 2 diabetes mellitus with diabetic chronic kidney disease; I12.9 Hypertensive chronic kidney disease with stage 1 through stage 4 chronic kidney disease, or unspecified chronic kidney disease; K21.9 Gastro-esophageal reflux disease without esophagitis; D63.8 Anemia in other chronic diseases classified elsewhere; Z98.0 Intestinal bypass and anastomosis status; Z98.84 Bariatric surgery status; Z87.891 Personal history of nicotine dependence; Z85.3 Personal history of malignant neoplasm of breast
CPT/HCPCS: 88305; 74176; 80048; 80053; 81003; 81015; 82306; 82805; 83605; 83690; 83735; 84100; 84425; 85025; 85027; 87045; 87046; 87086; 87427; 89055; 93005; 96360; 99284

== ENCOUNTER 2024-08-30 10:07 | Inpatient (IN) | payer MEDICARE, OTHER, SELFPAY ==
[2024-08-30] VITALS (20 sets, daily range): BP systolic 131–176; BP diastolic 64–95; BMI 24.2; BMI 24.3
[2024-08-30 05:26] LABS: Urine Albumin 2+ (Neg - Trace); Urine Bilirubin Negative (Negative); Urine Character Clear (Clear); Urine Color Yellow; Urine Glucose Negative (Negative); Urine Ketone Negative (Negative); Urine Leukocyte Negative (Negative); Urine Nitrite Negative (Negative); Urine Occult Blood 2+ (Negative); Urine Urobilinogen Negative (Neg - 1+)
[2024-08-30 05:45] LABS: Urine Red Blood Cell 0-2 /HPF (0-2); Urine Squamous Cell 0-2 /LPF (Few); Urine White Cell 0-2 /HPF (0-5)
[2024-08-30] MEDS: MORPHINE SULFATE 4 MG IV (06:40)
[2024-08-30] MEDS: ZOFRAN 4 MG IV (06:46)
[2024-08-30 06:54] LABS: % Basophils 0.2 % (0-2); % Eosinophils 0.6 % (0-6); % Immature Granulocytes 0.2 % (0-0.5); % Lymphocytes 11.4 % (20.5-51.1); % Monocytes 5.3 % (1.7-9.3); % Neutrophils 82.3 % (42.2-75.2); Absolute Eosinophils 0.1 10^3/uL (0-0.7); Absolute Lymphocytes 1.1 10^3/uL (1.2-3.4); Absolute Monocytes 0.5 10^3/uL (0.1-0.6); Absolute Neutrophils 7.9 10^3/uL (1.4-6.5); Hematocrit 28.9 % (37.0-47.0); Hemoglobin 9.3 g/dL (12.0-16.0); Mean Corp Hgb Conc. 32.2 g/dL (33.0-37.0); Mean Corpuscular Hgb 30.3 pg (27.0-31.0); Mean Corpuscular Volume 94.1 fL (81.0-99.0); Mean Platelet Volume 10.4 fL (7.4-10.4); Nucleated Red Blood Cells % 0 %; Platelet Count 157 10^3/uL (130-400); Red Blood Cell Count 3.07 10^6/uL (4.20-5.40); Red Cell Dist. Width 14.5 % (11.5-14.5); White Blood Cell Count 9.6 10^3/uL (4.8-10.8)
[2024-08-30 07:06] LABS: ALT (SGPT) 50 U/L (0-35); AST (SGOT) 26 U/L (14-36); Albumin 3.9 g/dl (3.5-5.0); Alkaline Phosphatase 88 U/L (38-126); Blood Urea Nitrogen 63 mg/dl (7-17); Calcium 8.1 mg/dl (8.4-10.2); Carbon Dioxide 14 mmol/L (22-30); Chloride 112 mmol/L (98-107); Estimated Creatinine Clearance 8 ml/min; Glucose 133 mg/dl (70-99); Potassium 5.1 mmol/L (3.5-5.1); Sodium 138 mmol/L (135-145); Total Bilirubin 0.4 mg/dl (0.2-1.3); Total Protein 6.2 g/dl (6.3-8.2); eGFR 7.24
--- NOTE | 2024-08-30 07:18 | ED.GENMED ---
History of Present Illness
General
Chief Complaint: Abdominal Pain
Source: patient
Exam Limitations: none
Time Seen by Provider: 08/30/24 06:06
Nursing documentation reviewed up to this point in time: agreed with
History of Present Illness
History of Present Illness:
64-year-old female with a past medical history of hypertension, GERD, diabetes, CKD, prior gastric bypass who presents to the ER for evaluation of right flank pain/abdominal pain. Patient reports that symptoms started and have been
constant since that time. She reports pain initially in the right flank since then has migrated a bit to the right mid to lower abdomen. She says pain does seem to be slightly worse with movement and initially she attributed to straining to lift
something on Saturday evening but with progressive symptoms decided to come to the ER for assessment. She has been taking Tylenol without improvement in her symptoms. She has had associated nausea no vomiting. She says she has had decreased
urination as well. No dysuria or hematuria. She denies any constipation or diarrhea. She denies any fevers or chills. She denies similar symptoms in the past. She has a prior history of cholecystectomy, gastric bypass, tubal ligation.
Past History
Past History
ED Past Medical History: NIDDM and Other (Pancreatitis, Chronic kidney disease)
ED Past Surgical History: Cholecystectomy, Gynecological (Tubal), Orthopedic (Foot, hand and knee surgery (doesn't remember which side)) and Other (Gastric by pass)
Social History
Tobacco: Non-smoker
Alcohol: None
Personal:
Living: with family
Review of Systems
Review of Systems
All Other Systems: ROS reviewed and negative except as documented in HPI and ROS
Constitutional: Denies fever or chills
Respiratory: Denies trouble breathing
Cardiac: Denies chest pain
ABD/GI: Reports abdominal pain and nausea; Denies vomiting or diarrhea
: Reports frequency (Decreased frequency) and flank pain; Denies dysuria or bleeding
Neurological: Denies dizzy or headache
Phy Exam
Physical Exam
Physical Exam:
General: Awake, alert, oriented x3; appears uncomfortable
Head: Normocephalic, atraumatic
Eyes: Conjunctiva normal, sclera anicteric
Throat: Airway intact, handling secretions
Neck: Trachea midline, supple without meningismus
Lungs: Clear to auscultation bilaterally, no wheezing, rales, rhonchi
Heart: Regular rate and rhythm, no murmurs, gallops, or rubs
Abd: Soft, non distended, nontender
Back: No CVA tenderness and no reproducible tenderness in the thoracic or lumbar spine or in the large muscles of the low back
Neuro: No gross deficits
Skin: no rash in area of concern
Extremities: Warm and well-perfused
Scores
Heart Failure Risk
Heart Failure Risk Score: Not Applicable
Heart Score for Chest Pain Patients
STEMI patient?: Not applicable
Withdrawal Assessment of Alcohol
Withdrawal Assessment Completed?: Not applicable
Course
Orders/Labs/Results
Orders:
Orders
08/30/24 05:07
Urinalysis Reflex To Culture Urgent
Date Specimen was Collected: 08/30/24
Time Specimen was Collected: 05:04
Urine Microscopic Reflex Cult Urgent
08/30/24 06:36
CT Abd/pel Without Iv Or Oral Urgent
Comment:
Reason For Exam: right flank
Morphine Sulfate 4 mg IV NOW STA
08/30/24 06:39
Complete Blood Count/With Diff Urgent
Comprehensive Metabolic Panel Urgent
08/30/24 06:44
Ondansetron Injectable [Zofran] 4 mg .ROUTE .ST-MED ONE
08/30/24 06:45
Ondansetron Injectable [Zofran] 4 mg IV NOW STA
08/30/24 07:15
HYDROmorphone [Dilaudid] 0.5 mg IV NOW STA
08/30/24 07:18
0.9% Sodium Chloride 1000 ml [Nss] 1,000 ml IV BOLUS
Abnormal Lab Results
08/30/24 08/30/24
05:07 06:39
RBC 3.07 L 10^6/uL
(4.20-5.40)
Hgb 9.3 L g/dL
(12.0-16.0)
Hct 28.9 L %
(37.0-47.0)
MCHC 32.2 L g/dL
(33.0-37.0)
Absolute Neuts (auto) 7.9 H 10^3/uL
(1.4-6.5)
Absolute Lymphs (auto) 1.1 L 10^3/uL
(1.2-3.4)
Neutrophils % 82.3 H %
(42.2-75.2)
Lymphocytes % 11.4 L %
(20.5-51.1)
Chloride 112 H mmol/L
(98-107)
Carbon Dioxide 14 L* mmol/L
(22-30)
BUN 63 H mg/dl
(7-17)
Creatinine 6.0 H* mg/dL
(0.6-1.0)
Glucose 133 H mg/dl
(70-99)
Calcium 8.1 L mg/dl
(8.4-10.2)
ALT 50 H U/L
(0-35)
Total Protein 6.2 L g/dl
(6.3-8.2)
Ur Occult Blood Reflex 2+ A
(Negative)
Urine Albumin (Reflex) 2+ A
(Neg - Trace)
08/30/24 06:39
08/30/24 06:39
Vital Signs
Initial and Last Documented VS:
Initial Vital Signs
Temp Pulse Resp BP Pulse Ox
36.8 C 60 20 155/80 100
08/30/24 04:58 08/30/24 04:58 08/30/24 04:58 08/30/24 04:58 08/30/24 04:58
Last Documented Vital Signs
Temp Pulse Resp BP Pulse Ox
36.8 C 67 20 176/85 96
08/30/24 04:58 08/30/24 06:48 08/30/24 06:48 08/30/24 06:48 08/30/24 07:00
MDM/Problems Addressed
Differential Diagnosis Includes:
Musculoskeletal pain, nephrolithiasis, appendicitis, UTI
MDM/Problems Addressed:
64-year-old female presents for evaluation of right flank pain radiating to the right lower abdomen for the past few days. She initially attributed it to muscle strain but symptoms worsening so presented to the ER. She has had decreased urination
she says as well. Hypertensive otherwise normal vitals. Physical exam as above. While she does report some worsening pain with movement she has no reproducible point tenderness in muscles of the back or oblique. Will plan to place an IV check
labs including a CBC and a CMP, urinalysis. Will send for a CT abdomen pelvis. Will treat pain and nausea and provide fluids. Reassess after the above.
Labs reviewed: CBC shows stable anemia, CMP shows acute renal failure with a creatinine of 6 from baseline of 2. Potassium acceptable at 5.1. She has metabolic acidosis with increased anion gap likely secondary to uremia in the setting of renal
failure. Her urinalysis is positive for blood but negative for infection. CT report is pending on my initial review concerning for obstructive nephrolithiasis in the right ureter. Will discuss with urology. IV fluids in progress. Anticipate
admission.
Radiology report reviewed: 6 x 6 mm stone in the right proximal ureter with moderate upstream hydronephrosis. Case discussed with urology to evaluate. Will admit for continued management�case discussed with hospitalist.
Chronic conditions affecting care:
Chronic kidney disease
Acute Exacerbation and/or Progression of Chronic Illness: HTN
*Radiology
Radiology exam reviewed: preliminary read by ED provider and radiology read reviewed
*Pulse Oximetry
Patient hypoxic: no
*Critical Care Note
Total Time (30-74mins, 75-104mins- exclusive of procedures): Not Applicable
Data Reviewed
Review of Other/Old Records Reveals: Labs and Records
Source: patient and records
Patient Management
Discussion with other providers: Hospitalist (Discussed with hospitalist) and Youth Worker (Discussed with urology)
Escalation/DeEscalation of care consider admission/obs:
Admission indicated
ED Attending Note
-
Portions of this chart may have been created with voice recognition software.� Occasional wrong word or��sound alike� substitutions may have occurred due to the inherent limitations of voice recognition software.
Discharge Plan
Departure
Patient Disposition: Admit
Date of Disposition: 08/30/24
Time of Disposition: 07:44
Admit to doctor: [facility]
Presentation/result/management discussed w/ accepting MD/DO: Hospitalist
Discharge Problem:
Nephrolithiasis, Acute renal failure
Prescriptions:
No Action
exemestane 25 mg Tablet
25 mg PO DAILY
pyridoxine (vitamin B6) 25 mg Tablet
100 mg PO DAILY
vitamin B complex Tablet
1 tab PO DAILY
selenium 200 mcg Tablet
200 mcg PO DAILY
cholecalciferol (vitamin D3) 250 mcg (10,000 unit) Tablet
250 mcg PO DAILY
famotidine 20 mg Tablet
20 mg PO HS Qty: 30 0RF
omeprazole 40 mg Capsule,Delayed Release(Dr/Ec)
40 mg PO HS Qty: 0 0RF
ondansetron 4 mg tablet,disintegrating
4 mg PO DAILY PRN (Reason: nausea and vomiting) Qty: 30 0RF
Referrals:
Jon Mitchell MD [Family Provider] -
Interventions
Interventions:
*Risk Screen - Suicide Last Done: 08/30/24 04:58
*General Assessment Last Done: 08/30/24 06:42
*Neglect/Abuse Screening Last Done: 08/30/24 04:58
ED- Fall Risk Assessment Last Done: 08/30/24 06:46
*ED COVID-19 Vaccine History Last Done: 08/30/24 06:42
XH-Itswhx-Ufeoccpuye Assessment Last Done: 08/30/24 07:00
Discharge Date and Time
Print Language: LAO
[2024-08-30] MEDS: NSS 1000 IV (07:20)
[2024-08-30] MEDS: DILAUDID 0.5 MG IV (07:20)
--- NOTE | 2024-08-30 09:28 | HPS.HSE ---
Family Physician
-
Family Physician: Jon Mitchell
Chief Complaint
-
R flank/abdominal pain
History of Present Illness
64 y/o F, hx of HTN, GERD, CKD, prior gastric bypass, diet controlled DM, presents to ER for evaluation of R flank/abd pain. Symptoms began - constant since that time. Initially began R flank, then migrated to R mid to lower abdomen. Some
positional worsening and she initially felt could be muscular strain. + Nausea, without vomiting. No fever/chills. No hematuria. No other complaints. With rest and Tylenol, symptoms did not improved prompting ER evaluation.
In ER, found to be in acute renal failure and CT showing R prox ureteral stone with hydronephrosis. Admitted for further management.
Medical History
Past Medical History
Past Medical History: Reports Other (HTN, GERD, CKD, prior gastric bypass, diet controlled DM)
Past Surgical History: Reports Other (Cholecystectomy, Gynecological (Tubal), Orthopedic (Foot, hand and knee surgery (doesn't remember which side)) and Other (Gastric by pass))
Social History
Tobacco: Non-smoker
Alcohol: None
Personal:
Living: With Family
Family History
Family History: Not pertinent
Allergies / Home Medications
Allergies reflects when Allergies were last updated in [employer].
Home Medications with original date entered in [employer]
Allergy/Medication List:
Allergies
Allergy/AdvReac Type Severity Reaction Status Date / Time
Sulfa (Sulfonamide Allergy Unknown Verified 08/30/24 04:58
Antibiotics)
Home Medications
exemestane 25 mg tablet 25 mg PO DAILY Cancer 03/19/24
pyridoxine (vitamin B6) 25 mg tablet 100 mg PO DAILY Supplement 03/19/24
vitamin B complex 1 tab PO DAILY Supplement 03/19/24
cholecalciferol (vitamin D3) 250 mcg (10,000 unit) tablet 250 mcg PO DAILY Supplement 04/09/24
selenium 200 mcg tablet 200 mcg PO DAILY Supplement 04/09/24
famotidine 20 mg tablet 20 mg PO HS #30 tabs 04/12/24
omeprazole 40 mg capsule,delayed release 40 mg PO HS Gastrointestinal Issue #0 caps 04/12/24
ondansetron 4 mg disintegrating tablet 4 mg PO DAILY PRN nausea and vomiting #30 tabs 04/12/24
Review of Systems
-
A 12 point ROS was completed and negative except as noted: Yes
Physical Exam
Vital Signs
Vital Signs
Temp Pulse Resp BP Pulse Ox
98.2 F 82 16 162/95 98
08/30/24 04:58 08/30/24 07:47 08/30/24 07:47 08/30/24 07:47 08/30/24 07:47
Physical Exam
General: No Apparent Distress
HEENT: NormoCephalic and Anicteric
Respiratory: Clear; No Wheezes or Rales
Cardiac: S1/S2 and Regular Rhythm
GI: Soft and Non Tender
Genito-urinary: Other (R flank tenderness to deep palpation)
Neuro: AO x 3
Hematologic/Lymphatic: No Lymphadenopathy
Psych: Calm
Laboratory Results
-
08/30/24 06:39
08/30/24 06:39
Laboratory Results
Total Bilirubin 0.4 mg/dl (0.2-1.3) 08/30/24 06:39
AST 26 U/L (14-36) 08/30/24 06:39
ALT 50 U/L (0-35) H 08/30/24 06:39
Alkaline Phosphatase 88 U/L (38-126) 08/30/24 06:39
Data Reviewed
-
Lab Data: Labs Reviewed by me
Impression/Plan
-
Assessment:
Obstructive Uropathy
- CT (per ER report): 6 x 6 mm stone in the right proximal ureter with moderate upstream hydronephrosis. Await formal report
- Urology consulted; likely will need OR and stent procedure
- NPO
- IV Pain control and anti-emetics prn
- IVF as below
- empiric Rocephin, pending culture
DENISE on CKD stage 3b, obstructive pathology
acute metabolic acidosis
- check lactate
- start Bicarbonate IVF
- hold nephrotoxins
- repeat BMP in afternoon and AM
Essential HTN
- not on meds, monitor
GERD
prior gastric bypass
- PPI/H2 pedro
diet controlled DM
- SSI + accu-checks
- A1c: pending
Hx of breast cancer s/p lumpectomy with cure per patient
- on Exemestane
DVT ppx: SC Heparin
Code: Full
--- NOTE | 2024-08-30 10:35 | CONS.URO ---
Consultation
-
Performing Provider: Nilsfer
Reason for Consultation: R ureteral stone, AKF
Medical History
History of Present Illness
64 y/o F, hx of prior kidney stone years ago which she passed spontaneously, presents to ER for evaluation of R flank/abd pain. Symptoms began - constant since that time. Initially began R flank, then migrated to R mid to lower abdomen.
+ Nausea, without vomiting. No fever/chills. No hematuria or UTI symptoms. No other complaints.
Due to persistent pain she presented to ED
Found to be in acute renal failure and CT showing R prox ureteral stone with hydronephrosis
Urology consulted for management
Past Medical History
Past Medical History: Other (HTN, GERD, CKD, prior gastric bypass, diet controlled DM)
Social History
Tobacco: Non-smoker
Alcohol: None
Drug: None
Family History
Family History: Reviewed & Not Pertinent
Allergies/Home Medications
Allergies
Allergy/AdvReac Type Severity Reaction Status Date / Time
Sulfa (Sulfonamide Allergy Unknown Verified 08/30/24 04:58
Antibiotics)
Home Medications
�Medication �Instructions �Recorded �Confirmed �Type
exemestane 25 mg tablet 25 mg PO DAILY Cancer 03/19/24 08/30/24 History
pyridoxine (vitamin B6) 25 mg 100 mg PO DAILY Supplement 03/19/24 08/30/24 History
tablet
vitamin B complex 1 tab PO DAILY Supplement 03/19/24 08/30/24 History
cholecalciferol (vitamin D3) 250 250 mcg PO DAILY Supplement 04/09/24 08/30/24 History
mcg (10,000 unit) tablet
selenium 200 mcg tablet 200 mcg PO DAILY Supplement 04/09/24 08/30/24 History
famotidine 20 mg tablet 20 mg PO HS #30 tabs 04/12/24 08/30/24 Rx
omeprazole 40 mg capsule,delayed 40 mg PO HS Gastrointestinal Issue 10/13/24 03/02/25 Rx
release #0 caps
ondansetron 4 mg disintegrating 4 mg PO DAILY PRN nausea and 04/12/24 08/30/24 Rx
tablet vomiting #30 tabs
Physical Exam
Vital Signs
Vital Signs
Temp Pulse Resp BP Pulse Ox
98.2 F 68 20 131/69 98
08/30/24 04:58 08/30/24 09:00 08/30/24 09:00 08/30/24 09:00 08/30/24 09:00
Lab / Testing Results
Laboratory Results
08/30/24 06:39
Physical Exam
General: Well Developed, Well Nourished and No Apparent Distress
Respiratory: Clear
GI: Soft and Non Tender
Genito-urinary: Costovertebral Angle Tend
Neuro: AO x 3
Psych: Calm and Intact Judgement
Assessment / Plan
-
64F with acute renal failure and obstructing R ureteral stone
No evidence of UTI or systemic infection
- OR today for cystoscopy, R ureteroscopy, laser lithotripsy, R ureter stent placement
- Abx ppx
- Trend renal function after resolving obstruction
Data Reviewed
-
CT Scan: Image personally visualized and interpreted
Lab Data: Labs Reviewed
Old Records: Reviewed
[2024-08-30 11:03] LABS: Lactic Acid < 0.5 mmol/L (0.7-2.0)
--- NOTE | 2024-08-30 11:07 | EDRN ---
this RN called the receiving unit and notified them that paper report was going to be tubed up
[2024-08-30 11:52] LABS: Glucose - Point of Care 93 mg/dl (70-99)
--- NOTE | 2024-08-30 12:07 | PTCARENOTE ---
Patient arrived to floor and OR called for patient to be brought down upon arrival. Assessment and Admission not able to be performed. Will be performed when patient is brought back to floor.
[2024-08-30] MEDS: NOVOLOG FLEXPEN-LOW RESISTANCE SC (12:37)
[2024-08-30 13:39] LABS: Glucose - Point of Care 111 mg/dl (70-99)
[2024-08-30] MEDS: STERILE WATER FOR INJECTION IV (13:47)
[2024-08-30] MEDS: ROCEPHIN IV (13:47)
[2024-08-30] MEDS: DILAUDID 0.25 MG IV (14:06)
[2024-08-30] MEDS: SODIUM BICARBONATE 1150 MEQ IV (14:26)
--- NOTE | 2024-08-30 16:20 | PTCARENOTE ---
Patient returned from OR with no complaints of pain. Voided large amount of blood tinged urine. Call lowry within reach.
[2024-08-30 17:04] LABS: Glucose - Point of Care 235 mg/dl (70-99)
[2024-08-30 17:36] LABS: Blood Urea Nitrogen 60 mg/dl (7-17); Calcium 8.2 mg/dl (8.4-10.2); Carbon Dioxide 11 mmol/L (22-30); Chloride 109 mmol/L (98-107); Estimated Creatinine Clearance 9 ml/min; Glucose 260 mg/dl (70-99); Potassium 5.2 mmol/L (3.5-5.1); Sodium 138 mmol/L (135-145)
[2024-08-30] MEDS: NOVOLOG FLEXPEN-LOW RESISTANCE 2 UNITS SC (17:36)
[2024-08-30] MEDS: HEPARIN 5000 UNITS SC (20:38)
[2024-08-30] MEDS: PEPCID 20 MG PO (20:39)
[2024-08-30] MEDS: PROTONIX 40 MG PO (20:40)
[2024-08-30 22:22] LABS: Glucose - Point of Care 171 mg/dl (70-99)
[2024-08-31 03:21] VITALS: BP 128/66
[2024-08-31] MEDS: SODIUM BICARBONATE 1150 MEQ IV ×3 (04:29→23:52)
[2024-08-31 07:34] VITALS: BP 141/60
[2024-08-31 08:03] LABS: Glucose - Point of Care 84 mg/dl (70-99)
--- NOTE | 2024-08-31 08:49 | W.PN.URO.CBU ---
Today's Communication / Plan
-
Trend renal function now that obstruction resolved
Outpatient follow up in about 2 weeks for stent removal
Assessment / Plan
-
64F with acute renal failure and obstructing R ureteral stone
No evidence of UTI or systemic infection
08/30/24: cystoscopy, R ureteroscopy, laser lithotripsy, R ureter stent placement
- Trend renal function now that obstruction resolved
- Outpatient follow up in about 2 weeks for stent removal
Diagnosis
-
Date of Service: August 31, 2024
-
Patient Diagnosis:
DENISE
R ureteral stone
Post Op Day: s/p R Ureteroscopy/laser lithotripsy 08/30
Subjective
-
Some urinary frequency
No events overnight
Objective
-
Vital Signs
Temp Pulse Resp BP Pulse Ox
98.4 F 62 18 141/60 98
08/31/24 07:34 08/31/24 07:34 08/31/24 07:34 08/31/24 07:34 08/31/24 07:34
Intake and Output
08/30/24 08/31/24 09/01/24
06:59 06:59 06:59
Intake Total 980 / 980
Output Total 1080 / 1080
Balance -100 / -100
Intake:
IV fluids (Total) 980 / 980
NSS 100 / 100
Output:
Urine, Voided 1080 / 1080
Other:
Number of approximated MODERATE 1
amounts of urine
Physical Exam
-
General - well developed, well nourished, no acute distress
Chest - clear bilaterally
Abdomen - soft, non-tender
[2024-08-31] MEDS: NOVOLOG FLEXPEN-LOW RESISTANCE SC ×3 (08:57→16:46)
[2024-08-31] MEDS: HEPARIN 5000 UNITS SC ×2 (09:01→19:55)
[2024-08-31] MEDS: AROMASIN 25 MG PO (09:01)
[2024-08-31] MEDS: TYLENOL 650 MG PO (09:04)
[2024-08-31] MEDS: SENOKOT-S 1 TABLET PO (09:04)
[2024-08-31 09:24] LABS: Hematocrit 28.1 % (37.0-47.0); Hemoglobin 9.5 g/dL (12.0-16.0); Mean Corp Hgb Conc. 33.8 g/dL (33.0-37.0); Mean Corpuscular Hgb 30.6 pg (27.0-31.0); Mean Corpuscular Volume 90.6 fL (81.0-99.0); Mean Platelet Volume 10.6 fL (7.4-10.4); Platelet Count 167 10^3/uL (130-400); Red Cell Dist. Width 14.6 % (11.5-14.5)
[2024-08-31 10:00] LABS: ALT (SGPT) 50 U/L (0-35); AST (SGOT) 32 U/L (14-36); Albumin 4.1 g/dl (3.5-5.0); Alkaline Phosphatase 101 U/L (38-126); Blood Urea Nitrogen 62 mg/dl (7-17); Calcium 7.8 mg/dl (8.4-10.2); Carbon Dioxide 14 mmol/L (22-30); Chloride 106 mmol/L (98-107); Estimated Creatinine Clearance 9 ml/min; Glucose 199 mg/dl (70-99); Glycohemoglobin (HgbA1c) 5.5 % (4.0-5.6); Potassium 4.6 mmol/L (3.5-5.1); Sodium 138 mmol/L (135-145); Total Bilirubin 0.6 mg/dl (0.2-1.3); Total Protein 6.3 g/dl (6.3-8.2)
--- NOTE | 2024-08-31 10:17 | W.PN.HOSP.TC ---
Today's Communication/Plan
-
Nephrology consult
Assessment / Plan
Assessment / Plan
Assessment:
Obstructive Uropathy
- CT: 6 mm right UPJ stone causing mild right hydronephrosis
- s/p cystoscopy, R ureteroscopy, laser lithotripsy, R ureter stent placement 08/30/24
- Outpatient follow up in about 2 weeks for stent removal
- pain control
- Empiric Rocephin pending culture
DENISE on CKD stage 3b, obstructive pathology
acute metabolic acidosis
- continue Bicarbonate IVF
- hold nephrotoxins
- repeat BMP Cr 5.7 (admission Cr 6.0)
- consult Nephrology
Essential HTN
- not on meds, monitor
GERD
prior gastric bypass
- PPI/H2 pedro
diet controlled DM
- SSI + accu-checks
- A1c: 5.5%
Hx of breast cancer s/p lumpectomy with cure per patient
- on Exemestane
DVT ppx: SC Heparin
Code: Full
Anticipated Discharge: > 48 hours
Subjective/Interval History
-
Date of Service: August 31, 2024
some mild pain with urination (Stent pain)
no other complaints
Objective Data
-
Labs:
Laboratory Results
08/31/24
09:08
WBC 11.0 H
Hgb 9.5 L
Hct 28.1 L
Plt Count 167
Sodium 138
Potassium 4.6
Chloride 106
Carbon Dioxide 14 L*
BUN 62 H
Creatinine 5.7 H*
Glucose 199 H
Calcium 7.8 L
Total Bilirubin 0.6
AST 32
ALT 50 H
Alkaline Phosphatase 101
Vital Signs:
Vital Signs
Temp Pulse Resp BP Pulse Ox
98.4 F 62 18 141/60 98
08/31/24 07:34 08/31/24 07:34 08/31/24 07:34 08/31/24 07:34 08/31/24 09:58
I&O
08/30/24 08/31/24 09/01/24
06:59 06:59 06:59
Intake Total 980 / 980
Output Total 1080 / 1080
Balance -100 / -100
Physical Exam
-
General: No Apparent Distress
HEENT: Normocephalic and Atraumatic
Respiratory: Negative Wheezes
Cardiac: Regular Rhythm and S1/S2
GI: Soft and Nontender
Genito-urinary: No Costovertebral Tender
Neuro: AO x 3
Hematologic / Lymphatic: No Lymphadenopathy
Psych: Calm
Data Reviewed
-
Total Time Spent with Patient (in minutes): 41
Labs: Labs Reviewed by me
[2024-08-31 10:44] VITALS: BP 135/67; PULSE 61; O2SAT 99
--- NOTE | 2024-08-31 10:50 | PTOTSP ---
pt currently demonstrates ability to complete simple ADLs, functional transfers, ambulation with no assistance. no acute OT needs identified at this time, will sign off.
--- NOTE | 2024-08-31 12:06 | CM ---
Patient seen bedside.
Patient IA completed.
patients 2 sons live with her.
Patient independent prior to admission.
Patient drives, does not work.
patient does not use assistive devices, had VN in remote past.
No d/c needs anticipated.
PCP: Dr Mitchell
Pharmacy: [facility]
Plan: home no needs anticipated.
[2024-08-31 12:24] LABS: Glucose - Point of Care 125 mg/dl (70-99)
[2024-08-31] MEDS: ROCEPHIN 1000 MG IV (12:47)
[2024-08-31] MEDS: STERILE WATER FOR INJECTION 10 ML IV (12:48)
--- NOTE | 2024-08-31 15:24 | W.CON.NEPH ---
Consultation
-
Date/Time Consultation Requested: August 31, 2024 at 10:30 AM
Date/Time Consultation Performed: August 31, 2024 at 3:30 PM
Requesting Provider: Dr. Merida
Performing Provider: Dr. Medellin
Reason for Consultation: Acute on chronic kidney disease
Medical History
-
Chief Complaint: Acute on chronic kidney disease
History of Present Illness:
64 y/o F, hx of HTN, GERD, CKD, prior gastric bypass, diet controlled DM, presents to ER for evaluation of R flank/abd pain. Symptoms began . This was associated with nausea and vomiting. She was found to have obstructive renal calculi on
the right 6 mm she is status post lithotripsy and stent placement by urology.
Renal consult for acute on chronic kidney disease stage IV. Her baseline creatinine is 2 which she follows with nephrology at [place].
Current creatinine is 5.7 she is nonoliguric. She also had hyperkalemia and metabolic acidosis.
She otherwise feels okay no nausea or vomiting no abdominal pain no flank pain. She did have hematuria but that is clearing.
Past Medical History
HTN, GERD, CKD, prior gastric bypass, diet controlled DM,
Social History
Tobacco: Non-Smoker
Alcohol: None
Family History
Mother with CKD
Allergies / Home Medications
Allergy/AdvReac Type Severity Reaction Status Date / Time
Sulfa (Sulfonamide Allergy Unknown Verified 08/30/24 04:58
Antibiotics)
�Medication �Instructions �Recorded �Confirmed �Type
exemestane 25 mg tablet 25 mg PO DAILY Cancer 03/19/24 08/30/24 History
pyridoxine (vitamin B6) 25 mg 100 mg PO DAILY Supplement 03/19/24 08/30/24 History
tablet
vitamin B complex 1 tab PO DAILY Supplement 03/19/24 08/30/24 History
cholecalciferol (vitamin D3) 250 250 mcg PO DAILY Supplement 04/09/24 08/30/24 History
mcg (10,000 unit) tablet
selenium 200 mcg tablet 200 mcg PO DAILY Supplement 04/09/24 08/30/24 History
famotidine 20 mg tablet 20 mg PO HS #30 tabs 04/12/24 08/30/24 Rx
omeprazole 40 mg capsule,delayed 40 mg PO HS Gastrointestinal Issue 04/12/24 08/30/24 Rx
release #0 caps
ondansetron 4 mg disintegrating 4 mg PO DAILY PRN nausea and 04/12/24 08/30/24 Rx
tablet vomiting #30 tabs
Review of Systems
-
No chest pain shortness of breath nausea or vomiting
All other systems: Negative unless noted
Physical Exam
Vital Signs
Vital Signs
Temp Pulse Resp BP Pulse Ox
98.4 F 62 18 141/60 98
08/31/24 07:34 08/31/24 07:34 08/31/24 07:34 08/31/24 07:34 08/31/24 09:58
Lab Results
WBC 11.0 10^3/uL (4.8-10.8) H 08/31/24 09:08
RBC 3.10 10^6/uL (4.20-5.40) L 08/31/24 09:08
Hgb 9.5 g/dL (12.0-16.0) L 08/31/24 09:08
Hct 28.1 % (37.0-47.0) L 08/31/24 09:08
Plt Count 167 10^3/uL (130-400) 08/31/24 09:08
Sodium 138 mmol/L (135-145) 08/31/24 09:08
Potassium 4.6 mmol/L (3.5-5.1) 08/31/24 09:08
Chloride 106 mmol/L (98-107) 08/31/24 09:08
Carbon Dioxide 14 mmol/L (22-30) L* 08/31/24 09:08
BUN 62 mg/dl (7-17) H 08/31/24 09:08
Creatinine 5.7 mg/dL (0.6-1.0) H* 08/31/24 09:08
eGFR 7.70 08/31/24 09:08
Glucose 199 mg/dl (70-99) H 08/31/24 09:08
Calcium 7.8 mg/dl (8.4-10.2) L 08/31/24 09:08
Albumin 4.1 g/dl (3.5-5.0) 08/31/24 09:08
Physical Exam
General no acute distress
HEENT no cephalic atraumatic extraocular muscle intact no scleral icterus no JVD neck supple
lungs clear to auscultation bilateral
heart regular S1-S2 positive
abdomen soft nontender positive bowel sounds
extremities no edema pulses present bilateral
Neurologically nonfocal alert and oriented x 3
Skin no lesions no abrasions no petechiae
Psych normal affect no bizarre behavior
Data Reviewed
-
CT Scan: Image Personally Visualized and interpreted (mild right hydronephrosis secondary to a 6 mm stone in the right UPJ. Prior to intervention)
Labs: Labs Reviewed by me, Discussed with Nurse and Discussed with Patient
Assessment/Plan
-
64 y/o F, hx of HTN, GERD, CKD, prior gastric bypass, diet controlled DM, presents to ER for evaluation of R flank/abd pain. Symptoms began . This was associated with nausea and vomiting. She was found to have obstructive renal calculi on
the right 6 mm she is status post lithotripsy and stent placement by urology.
Renal consult for acute on chronic kidney disease stage IV. Her baseline creatinine is 2 which she follows with nephrology at [place].
Current creatinine is 5.7 she is nonoliguric. She also had hyperkalemia and metabolic acidosis.
Impression.
Acute on chronic kidney disease stage IV follows with [facility]rology with a baseline creatinine of 2.1.
mild right hydronephrosis secondary to a 6 mm stone in the right UPJ.
Hypertension stable.
Diabetes diet controlled.
Acute metabolic acidosis.
Hyperkalemia.
Plan.
Baseline creatinine of 2 (CKD 4)with a creatinine of 6 on admission/acuity secondary to obstructive uropathy with no signs of hypotension or hemodynamic instability.
continue antibiotics
Persistent metabolic acidosis on sodium bicarbonate drip at 80 cc/h.
I will increase bicarb drip to 150/h.
She is currently oliguric we will continue to monitor her urine output.
Renal dose all medications appropriate for GFR until reaches steady state.
No acute need for dialysis at this time although did discuss with the patient that would be a possible if no improvement in renal function.
A.m. labs.
[2024-08-31 15:36] VITALS: BP 124/67
[2024-08-31] MEDS: MIRALAX 17 GRAMS PO (15:37)
[2024-08-31 16:45] LABS: Glucose - Point of Care 90 mg/dl (70-99)
[2024-08-31] MEDS: PROTONIX 40 MG PO (20:56)
[2024-08-31 21:45] LABS: Glucose - Point of Care 126 mg/dl (70-99)
[2024-08-31 23:27] VITALS: BP 125/67
[2024-08-31 23:42] VITALS: BP 151/75
[2024-09-01] MEDS: TYLENOL 650 MG PO ×2 (01:34→20:52)
[2024-09-01 06:17] LABS: Hematocrit 24.3 % (37.0-47.0); Mean Corp Hgb Conc. 32.9 g/dL (33.0-37.0); Mean Corpuscular Hgb 29.7 pg (27.0-31.0); Mean Corpuscular Volume 90.3 fL (81.0-99.0); Mean Platelet Volume 10.9 fL (7.4-10.4); Platelet Count 150 10^3/uL (130-400); Red Blood Cell Count 2.69 10^6/uL (4.20-5.40); Red Cell Dist. Width 14.5 % (11.5-14.5); White Blood Cell Count 5.9 10^3/uL (4.8-10.8)
[2024-09-01 07:04] LABS: ALT (SGPT) 48 U/L (0-35); AST (SGOT) 33 U/L (14-36); Alkaline Phosphatase 79 U/L (38-126); Blood Urea Nitrogen 62 mg/dl (7-17); Calcium 6.5 mg/dl (8.4-10.2); Carbon Dioxide 27 mmol/L (22-30); Chloride 102 mmol/L (98-107); Estimated Creatinine Clearance 10 ml/min; Glucose 111 mg/dl (70-99); Magnesium 1.6 mg/dl (1.6-2.3); Potassium 4.4 mmol/L (3.5-5.1); Sodium 139 mmol/L (135-145); Total Bilirubin 0.3 mg/dl (0.2-1.3); Total Protein 4.8 g/dl (6.3-8.2); eGFR 9.01
[2024-09-01 07:55] VITALS: BP 127/68
[2024-09-01 08:24] LABS: Glucose - Point of Care 90 mg/dl (70-99)
[2024-09-01] MEDS: NOVOLOG FLEXPEN-LOW RESISTANCE SC ×3 (09:00→18:04)
[2024-09-01] MEDS: AROMASIN 25 MG PO (09:04)
[2024-09-01] MEDS: DULCOLAX 10 MG RECTAL (09:06)
[2024-09-01] MEDS: HEPARIN SC ×2 (09:11→20:52)
[2024-09-01] MEDS: NSS 1000 IV ×2 (09:11→19:52)
[2024-09-01] MEDS: SODIUM BICARBONATE IV (09:12)
--- NOTE | 2024-09-01 09:33 | W.PN.HOSP.TC ---
Addendum entered and electronically signed by Aurea Merida MD 09/01/24 09:41:
acute dilutional anemia (from IVF) on chronic anemia (from CKD)
Original Note:
Today's Communication/Plan
-
normal saline
follow nephrology recs
follow labs
stop Abx
Assessment / Plan
Assessment / Plan
Assessment:
Obstructive Uropathy
- CT: 6 mm right UPJ stone causing mild right hydronephrosis
- s/p cystoscopy, R ureteroscopy, laser lithotripsy, R ureter stent placement 08/30/24
- Outpatient follow up in about 2 weeks for stent removal
- pain control
- UCx no growth - stop IV abx
DENISE on CKD stage 3b, obstructive pathology
acute metabolic acidosis
- continue IVF (now normal saline, stop bicarbonate IVF with improvement in acidosis)
- hold nephrotoxins
- repeat BMP Cr 5.0 today (admission Cr 6.0)
- Nephrology following
Essential HTN
- not on meds, monitor
GERD
prior gastric bypass
- PPI/H2 pedro
diet controlled DM
- SSI + accu-checks
- A1c: 5.5%
Hx of breast cancer s/p lumpectomy with cure per patient
- on Exemestane
DVT ppx: SC Heparin
Code: Full
Anticipated Discharge: 24 - 48 hours
Subjective/Interval History
-
Date of Service: September 01, 2024
resting comfortably, no complaints at present
Objective Data
-
Labs:
Laboratory Results
09/01/24
05:48
WBC 5.9
Hgb 8.0 L
Hct 24.3 L
Plt Count 150
Sodium 139
Potassium 4.4
Chloride 102
Carbon Dioxide 27
BUN 62 H
Creatinine 5.0 H*
Glucose 111 H
Calcium 6.5 L*
Total Bilirubin 0.3
AST 33
ALT 48 H
Alkaline Phosphatase 79
Vital Signs:
Vital Signs
Temp Pulse Resp BP Pulse Ox
98.4 F 58 14 127/68 97
09/01/24 07:55 09/01/24 07:55 09/01/24 07:55 09/01/24 07:55 09/01/24 07:55
I&O
08/31/24 09/01/24 09/02/24
06:59 06:59 06:59
Intake Total 980 / 980 3880 / 3880
Output Total 1080 / 1080
Balance -100 / -100 3880 / 3880
Physical Exam
-
General: No Apparent Distress
HEENT: Normocephalic and Atraumatic
Respiratory: Negative Wheezes
Cardiac: Regular Rhythm and S1/S2
GI: Soft
Genito-urinary: No Costovertebral Tender
Musculoskeletal: No Edema
Neuro: AO x 3
Psych: Calm
Data Reviewed
-
Total Time Spent with Patient (in minutes): 41
Labs: Labs Reviewed by me
[2024-09-01 12:36] LABS: Glucose - Point of Care 132 mg/dl (70-99)
[2024-09-01 14:54] LABS: Glucose - Point of Care 183 mg/dl (70-99)
[2024-09-01 15:05] VITALS: BP 136/78
--- NOTE | 2024-09-01 15:10 | PTCARENOTE ---
Addendum entered by Naima Albright RN 09/01/24 15:17:
pt refused zofran at this time. made aware.
Original Note:
pt states, 'I feel off' pt states she feels nauseous. took VS; VSs, HR 70's, 95% room air, BS 183 post lunch. pt voiding normal, had BM today. offered pt to go for a walk. pt tolerated walk. no dizziness.
--- NOTE | 2024-09-01 15:20 | CM ---
Patient seen bedside.
Continue to monitor labs.
Plan: home no needs.
[2024-09-01] MEDS: CALCIUM GLUCONATE 130 MG IV (16:56)
--- NOTE | 2024-09-01 17:02 | W.PN.URO.CBU ---
Today's Communication / Plan
-
- Stable for discharge from [facility] once renal function improving
- Outpatient follow up in 1-2 weeks for stent removal
Assessment / Plan
-
64F with acute renal failure and obstructing R ureteral stone
No evidence of UTI or systemic infection
08/30/24: cystoscopy, R ureteroscopy, laser lithotripsy, R ureter stent placement
- Slow renal function improvement after resolved obstruction - likely just needs more time
- Outpatient follow up in 1-2 weeks for stent removal
Diagnosis
-
Date of Service: September 01, 2024
-
Patient Diagnosis:
DENISE
R ureteral stone
Post Op Day: s/p R Ureteroscopy/laser lithotripsy 08/30
Subjective
-
minimal stent symptoms
Objective
-
Vital Signs
Temp Pulse Resp BP Pulse Ox
98.2 F 68 16 136/78 95
09/01/24 15:05 09/01/24 15:05 09/01/24 15:05 09/01/24 15:05 09/01/24 15:05
Intake and Output
08/31/24 09/01/24 09/02/24
06:59 06:59 06:59
Intake Total 980 / 980 3880 / 3880
Output Total 1080 / 1080
Balance -100 / -100 3880 / 3880
Intake:
Oral fluids 1140 / 1140
IV fluids (Total) 980 / 980 2740 / 2740
NSS 100 / 100
Output:
Urine, Voided 1080 / 1080
Other:
Number of approximated MODERATE 1 3
amounts of urine
Number of approximated LARGE 2
amounts of urine
Laboratory Results
09/01/24 05:48
09/01/24 05:48
Physical Exam
-
General - well developed, well nourished, no acute distress
Chest - clear
Abdomen - soft, non-tender
[2024-09-01 18:02] LABS: Glucose - Point of Care 163 mg/dl (70-99)
--- NOTE | 2024-09-01 18:21 | W.PN.NEPH.PH ---
Today's Communication / Plan
-
follow labs
replace annamarie
Assessment/Plan
-
64 y/o F, hx of HTN, GERD, CKD, prior gastric bypass, diet controlled DM, presents to ER for evaluation of R flank/abd pain. Symptoms began . This was associated with nausea and vomiting. She was found to have obstructive renal calculi on
the right 6 mm she is status post lithotripsy and stent placement by urology.
Renal consult for acute on chronic kidney disease stage IV. Her baseline creatinine is 2 which she follows with nephrology at [place].
Current creatinine is 5.7 she is nonoliguric. She also had hyperkalemia and metabolic acidosis.
Impression.
Acute on chronic kidney disease stage IV follows with [place] nephrology with a baseline creatinine of 2.1.
mild right hydronephrosis secondary to a 6 mm stone in the right UPJ.
Hypertension stable.
Diabetes diet controlled.
Acute metabolic acidosis.
Hyperkalemia.
Plan.
Baseline creatinine of 2 (CKD 4)with a creatinine of 6 on admission/acuity secondary to obstructive uropathy with no signs of hypotension or hemodynamic instability.
cr slow to improve to 5
met acidosis resolved, off bicarb gtt and now on NS
continue antibiotics
reports subjectively non oliguric with out douglas
Renal dose all medications appropriate for GFR until reaches steady state.
No acute need for dialysis at this time
hypocalcemia-replace iv, check vit D, and I annamarie in am
follow h/h
-
-
Date of Service: September 01, 2024
CC / HPI / ROS
-
Chief Complaint:
DENISE with CKD
History of Present Illness:
cr improving slowly to 5, annamarie low 6.5
BPs table, uop not measured
no fever
hb low at 8
met acidosis is better bicarb at 27
Review of Systems:
no cp or sob
no n/v
wants to d/c soon, ,has delivery to receive on
Labs
-
Labs:
WBC 5.9 10^3/uL (4.8-10.8) 09/01/24 05:48
RBC 2.69 10^6/uL (4.20-5.40) L 09/01/24 05:48
Hgb 8.0 g/dL (12.0-16.0) L 09/01/24 05:48
Hct 24.3 % (37.0-47.0) L 09/01/24 05:48
Plt Count 150 10^3/uL (130-400) 09/01/24 05:48
Sodium 139 mmol/L (135-145) 09/01/24 05:48
Potassium 4.4 mmol/L (3.5-5.1) 09/01/24 05:48
Chloride 102 mmol/L (98-107) 09/01/24 05:48
Carbon Dioxide 27 mmol/L (22-30) 09/01/24 05:48
BUN 62 mg/dl (7-17) H 09/01/24 05:48
Creatinine 5.0 mg/dL (0.6-1.0) H* 09/01/24 05:48
eGFR 9.01 09/01/24 05:48
Glucose 111 mg/dl (70-99) H 09/01/24 05:48
Calcium 6.5 mg/dl (8.4-10.2) L* 09/01/24 05:48
Albumin 3.0 g/dl (3.5-5.0) L 09/01/24 05:48
Physical Exam
-
Vital Signs:
Vital Signs
Temp Pulse Resp BP Pulse Ox
98.2 F 68 16 136/78 95
09/01/24 15:05 09/01/24 15:05 09/01/24 15:05 09/01/24 15:05 09/01/24 15:05
Cardiovascular:: Regular rate and rhythm
Respiratory:: Bilateral: CTA
Lung Excursion:: Normal
Abdomen:: Nontender and Soft
Extremity Edema:: None: Bilateral:
Douglas Catheter: No
[2024-09-01] MEDS: PROTONIX 40 MG PO (20:52)
[2024-09-01 21:43] LABS: Glucose - Point of Care 190 mg/dl (70-99)
[2024-09-01] MEDS: ZOFRAN 4 MG IV (22:54)
[2024-09-01] MEDS: PEPCID 20 MG PO (23:24)
[2024-09-01 23:35] VITALS: BP 149/69
[2024-09-02 06:25] LABS: Hematocrit 24.4 % (37.0-47.0); Mean Corp Hgb Conc. 32.8 g/dL (33.0-37.0); Mean Corpuscular Hgb 30.2 pg (27.0-31.0); Mean Corpuscular Volume 92.1 fL (81.0-99.0); Mean Platelet Volume 10.2 fL (7.4-10.4); Platelet Count 160 10^3/uL (130-400); Red Blood Cell Count 2.65 10^6/uL (4.20-5.40); Red Cell Dist. Width 14.6 % (11.5-14.5); White Blood Cell Count 4.7 10^3/uL (4.8-10.8)
[2024-09-02 06:29] LABS: Ionized Calcium 0.92 mMOL/L (1.15-1.33)
[2024-09-02 06:52] LABS: ALT (SGPT) 50 U/L (0-35); AST (SGOT) 35 U/L (14-36); Alkaline Phosphatase 79 U/L (38-126); Blood Urea Nitrogen 58 mg/dl (7-17); Calcium 7.1 mg/dl (8.4-10.2); Carbon Dioxide 28 mmol/L (22-30); Chloride 107 mmol/L (98-107); Estimated Creatinine Clearance 11 ml/min; Glucose 94 mg/dl (70-99); Potassium 4.8 mmol/L (3.5-5.1); Sodium 143 mmol/L (135-145); Total Bilirubin 0.4 mg/dl (0.2-1.3)
[2024-09-02 07:05] LABS: Vitamin D, 25-OH*** 31.1 ng/mL (30-80)
[2024-09-02 07:50] VITALS: BP 159/91
[2024-09-02 07:59] LABS: Glucose - Point of Care 107 mg/dl (70-99)
[2024-09-02] MEDS: AROMASIN 25 MG PO (08:20)
[2024-09-02] MEDS: NOVOLOG FLEXPEN-LOW RESISTANCE SC ×3 (08:21→17:21)
[2024-09-02] MEDS: NSS 1000 IV ×2 (08:21→20:52)
[2024-09-02] MEDS: HEPARIN SC ×2 (08:22→20:53)
[2024-09-02] MEDS: CALCIUM GLUCONATE 100 IV (08:38)
--- NOTE | 2024-09-02 11:25 | W.PN.HOSP.TC ---
Today's Communication/Plan
-
monitor vitals
see plan
cw IVF
monitor renal function
replete calcium
Assessment / Plan
Assessment / Plan
Assessment:
Obstructive Uropathy
- CT: 6 mm right UPJ stone causing mild right hydronephrosis
- s/p cystoscopy, R ureteroscopy, laser lithotripsy, R ureter stent placement 08/30/24
- Outpatient follow up in about 2 weeks for stent removal
- pain control
- UCx no growth - stop IV abx
DENISE on CKD stage 3b, obstructive pathology
acute metabolic acidosis
- continue IVF (now normal saline, stop bicarbonate IVF with improvement in acidosis)
- hold nephrotoxins
- repeat BMP Cr 4.7 today (admission Cr 6.0)
- Nephrology following
cw IVF
Essential HTN
- not on meds, monitor
acute dilutional anemia (from IVF) on chronic anemia (from CKD)
Hypocalcemia
Replete
GERD
prior gastric bypass
- PPI/H2 pedro
diet controlled DM
- SSI + accu-checks
- A1c: 5.5%
Hx of breast cancer s/p lumpectomy with cure per patient
- on Exemestane
DVT ppx: SC Heparin
Code: Full
General: No Apparent Distress
HEENT: Normocephalic and Atraumatic
Respiratory: Negative Wheezes
Cardiac: Regular Rhythm and S1/S2
GI: Soft
Genito-urinary: No Costovertebral Tender
Musculoskeletal: No Edema
Neuro: AO x 3
Psych: Calm
Anticipated Discharge: 24 - 48 hours
Subjective/Interval History
-
Date of Service: September 02, 2024
denies pain
Objective Data
-
Labs:
Laboratory Results
09/02/24
06:14
WBC 4.7 L
Hgb 8.0 L
Hct 24.4 L
Plt Count 160
Sodium 143
Potassium 4.8
Chloride 107
Carbon Dioxide 28
BUN 58 H
Creatinine 4.7 H*
Glucose 94
Calcium 7.1 L
Total Bilirubin 0.4
AST 35
ALT 50 H
Alkaline Phosphatase 79
Vital Signs:
Vital Signs
Temp Pulse Resp BP Pulse Ox
98.4 F 70 18 159/91 97
09/02/24 07:50 09/02/24 07:50 09/02/24 07:50 09/02/24 07:50 09/02/24 08:10
I&O
09/01/24 09/02/24 09/03/24
06:59 06:59 06:59
Intake Total 3880 / 3880 2870 / 2870 900 / 900
Balance 3880 / 3880 2870 / 2870 900 / 900
[2024-09-02 11:40] LABS: Glucose - Point of Care 107 mg/dl (70-99)
[2024-09-02] MEDS: DULCOLAX 10 MG RECTAL (13:38)
[2024-09-02 15:57] VITALS: BP 141/75
[2024-09-02 17:18] LABS: Glucose - Point of Care 102 mg/dl (70-99)
--- NOTE | 2024-09-02 17:40 | W.PN.NEPH.PH ---
Today's Communication / Plan
-
follow bmp
Assessment/Plan
-
64 y/o F, hx of HTN, GERD, CKD, prior gastric bypass, diet controlled DM, presents to ER for evaluation of R flank/abd pain. Symptoms began . This was associated with nausea and vomiting. She was found to have obstructive renal calculi on
the right 6 mm she is status post lithotripsy and stent placement by urology.
Renal consult for acute on chronic kidney disease stage IV. Her baseline creatinine is 2 which she follows with nephrology at [place].
Current creatinine is 5.7 she is nonoliguric. She also had hyperkalemia and metabolic acidosis.
Impression.
Acute on chronic kidney disease stage IV follows with [place] nephrology with a baseline creatinine of 2.1.
mild right hydronephrosis secondary to a 6 mm stone in the right UPJ.
Hypertension stable.
Diabetes diet controlled.
Acute metabolic acidosis.
Hyperkalemia.
Plan.
Baseline creatinine of 2 (CKD 4)with a creatinine of 6 on admission/acuity secondary to obstructive uropathy with no signs of hypotension or hemodynamic instability.
cr slow to improve to 4.7, subjectively non oligurc
met acidosis resolved, off bicarb gtt and now on NS
continue antibiotics
reports subjectively non oliguric with out douglas
Renal dose all medications appropriate for GFR until reaches steady state.
No acute need for dialysis at this time
hypocalcemia-replace iv, check vit D, and I annamarie in am
follow h/h
-
-
Date of Service: September 02, 2024
CC / HPI / ROS
-
Chief Complaint:
DENISE with CKD
History of Present Illness:
cr improving slowly to 4.7, annamarie low 7.1
hemodynamically stable
no fever
hb low at 8
met acidosis is better bicarb at 27
Review of Systems:
no cp or sob
no n/v
wants to d/c soon, ,has delivery to receive on
Labs
-
Labs:
WBC 4.7 10^3/uL (4.8-10.8) L 09/02/24 06:14
RBC 2.65 10^6/uL (4.20-5.40) L 09/02/24 06:14
Hgb 8.0 g/dL (12.0-16.0) L 09/02/24 06:14
Hct 24.4 % (37.0-47.0) L 09/02/24 06:14
Plt Count 160 10^3/uL (130-400) 09/02/24 06:14
Sodium 143 mmol/L (135-145) 09/02/24 06:14
Potassium 4.8 mmol/L (3.5-5.1) 09/02/24 06:14
Chloride 107 mmol/L (98-107) 09/02/24 06:14
Carbon Dioxide 28 mmol/L (22-30) 09/02/24 06:14
BUN 58 mg/dl (7-17) H 09/02/24 06:14
Creatinine 4.7 mg/dL (0.6-1.0) H* 09/02/24 06:14
eGFR 9.70 09/02/24 06:14
Glucose 94 mg/dl (70-99) 09/02/24 06:14
Calcium 7.1 mg/dl (8.4-10.2) L 09/02/24 06:14
Phosphorus 5.0 mg/dl (2.5-4.5) H 09/02/24 06:14
Albumin 3.0 g/dl (3.5-5.0) L 09/02/24 06:14
Physical Exam
-
Vital Signs:
Vital Signs
Temp Pulse Resp BP Pulse Ox
97.7 F 71 16 141/75 99
09/02/24 15:57 09/02/24 15:57 09/02/24 15:57 09/02/24 15:57 09/02/24 15:57
Cardiovascular:: Regular rate and rhythm
Respiratory:: Bilateral: CTA
Lung Excursion:: Normal
Abdomen:: Nontender and Soft
Extremity Edema:: None: Bilateral:
Douglas Catheter: No
[2024-09-02] MEDS: PROTONIX 40 MG PO (20:53)
[2024-09-02 21:33] LABS: Glucose - Point of Care 139 mg/dl (70-99)
[2024-09-02 23:35] VITALS: BP 136/75
[2024-09-03] MEDS: NSS 1000 IV (07:08)
[2024-09-03 07:17] LABS: Mean Corpuscular Hgb 29.7 pg (27.0-31.0); Mean Corpuscular Volume 92.9 fL (81.0-99.0); Mean Platelet Volume 10.7 fL (7.4-10.4); Platelet Count 143 10^3/uL (130-400); Red Blood Cell Count 2.69 10^6/uL (4.20-5.40); Red Cell Dist. Width 14.2 % (11.5-14.5); White Blood Cell Count 4.4 10^3/uL (4.8-10.8)
[2024-09-03 07:45] LABS: Glucose - Point of Care 83 mg/dl (70-99)
[2024-09-03] MEDS: HEPARIN SC (07:49)
[2024-09-03] MEDS: NOVOLOG FLEXPEN-LOW RESISTANCE SC ×2 (07:49→11:54)
[2024-09-03] MEDS: AROMASIN 25 MG PO (07:50)
[2024-09-03 08:18] LABS: ALT (SGPT) 66 U/L (0-35); AST (SGOT) 51 U/L (14-36); Albumin 3.3 g/dl (3.5-5.0); Alkaline Phosphatase 77 U/L (38-126); Blood Urea Nitrogen 59 mg/dl (7-17); Calcium 7.4 mg/dl (8.4-10.2); Carbon Dioxide 21 mmol/L (22-30); Chloride 108 mmol/L (98-107); Estimated Creatinine Clearance 12 ml/min; Glucose 86 mg/dl (70-99); Potassium 5.3 mmol/L (3.5-5.1); Sodium 140 mmol/L (135-145); Total Bilirubin 0.6 mg/dl (0.2-1.3); Total Protein 5.3 g/dl (6.3-8.2); eGFR 11.43
[2024-09-03 08:31] VITALS: BP 147/71
[2024-09-03] MEDS: LOKELMA 10 GRAM PO (09:38)
--- NOTE | 2024-09-03 11:22 | W.PN.HOSP.TC ---
Addendum entered and electronically signed by Ganesh Trujillo MD 09/03/24 17:33:
discussed with Dr Albrecht today; he recommended patient to be discharged with outpatient BMP
Addendum entered and electronically signed by Ganesh Trujillo MD 09/03/24 14:27:
Potassium improved to 4.9. Discharge today with outpatient follow-up with nephrology. Repeat BMP
Time of discharge 37 minutes
Original Note:
Today's Communication/Plan
-
monitor vitals
see plan
possible dc today
monitor renal function
repeat BMP in 1-2 days with nephrology
repeat potassium level later today
lokelma
Assessment / Plan
Assessment / Plan
Assessment:
Obstructive Uropathy
- CT: 6 mm right UPJ stone causing mild right hydronephrosis
- s/p cystoscopy, R ureteroscopy, laser lithotripsy, R ureter stent placement 08/30/24
- Outpatient follow up in about 2 weeks for stent removal
- pain control
- UCx no growth - stop IV abx
DENISE on CKD stage 3b, obstructive pathology
acute metabolic acidosis
- continue IVF (now normal saline, stop bicarbonate IVF with improvement in acidosis)
- hold nephrotoxins
- repeat BMP Cr 4.1 today (admission Cr 6.0)
- Nephrology following
mild hyperkalemia
lokelma today
discussed with nephrology (Dr Albrecht) and they will follow up with patient bmp outpatient in 1-2 days
repeat K later today prior to dc
Essential HTN
- not on meds, monitor
acute dilutional anemia (from IVF) on chronic anemia (from CKD)
Hypocalcemia
Replete
GERD
prior gastric bypass
- PPI/H2 pedro
diet controlled DM
- SSI + accu-checks
- A1c: 5.5%
Hx of breast cancer s/p lumpectomy with cure per patient
- on Exemestane
DVT ppx: SC Heparin
Code: Full
General: No Apparent Distress
HEENT: Normocephalic and Atraumatic
Respiratory: Negative Wheezes
Cardiac: Regular Rhythm and S1/S2
GI: Soft
Genito-urinary: No Costovertebral Tender
Musculoskeletal: No Edema
Neuro: AO x 3
Psych: Calm
Anticipated Discharge: Today
Subjective/Interval History
-
Date of Service: September 03, 2024
denies pain
Objective Data
-
Labs:
Laboratory Results
09/03/24
06:48
WBC 4.4 L
Hgb 8.0 L
Hct 25.0 L
Plt Count 143
Sodium 140
Potassium 5.3 H
Chloride 108 H
Carbon Dioxide 21 L
BUN 59 H
Creatinine 4.1 H*
Glucose 86
Calcium 7.4 L
Total Bilirubin 0.6
AST 51 H
ALT 66 H
Alkaline Phosphatase 77
Vital Signs:
Vital Signs
Temp Pulse Resp BP Pulse Ox
98.6 F 58 18 147/71 99
09/03/24 08:31 09/03/24 08:31 09/03/24 08:31 09/03/24 08:31 09/03/24 08:31
I&O
09/02/24 09/03/24 09/04/24
06:59 06:59 06:59
Intake Total 2869 / 0 1859
Balance 2870 / 2870 1859
[2024-09-03 11:46] LABS: Glucose - Point of Care 91 mg/dl (70-99)
[2024-09-03 11:48] LABS: Stone Analysis Mass 18 mg
[2024-09-03 13:54] LABS: Potassium 4.9 mmol/L (3.5-5.1)
--- NOTE | 2024-09-03 14:02 | CM ---
Patient seen beside.
Check labs, possible later d/c.
Patient drive to the hospital will drive herself home.
Plan: home no needs.
--- NOTE | 2024-09-03 14:26 | W.DCSUMMARY ---
Discharge Summary
Discharge Data
Date of Admission: 08/30/24
Date of Discharge: 09/03/24
-
Pending Results: No
Hospital Course
64-year-old female with past medical history of GERD, diabetes mellitus, breast cancer status postlumpectomy, essential hypertension, CKD came to the hospital with obstructive uropathy with mild right hydronephrosis. Patient was seen by urology and
was taken for cystoscopy with laser lithotripsy and right ureteral stent placement. Patient also had DENISE on CKD with acute metabolic acidosis secondary to obstructive pathology. Patient was seen by nephrology throughout hospitalization. Patient
admission creatinine was 6 which over time continue to improve and on discharge her creatinine was 4.1. Since creatinine was improving nephrology felt comfortable discharging patient with close follow-up outpatient. Patient also had mild
hyperkalemia which improved with Lokelma. On discharge patient was instructed to follow-up closely with nephrology outpatient and to get repeat BMP done outpatient. Patient was provided prescription of BMP prior to discharge. Since her symptoms
continue to improve, she was then discharged home with instructions to follow-up with all her physicians outpatient.
Discharge Plan
-
Patient Disposition: Home (Routine Discharge)
Discharge Diagnosis/Procedures: Obstructive uropathy status post cystoscopy, right ureteroscopy, laser lithotripsy, and right ureteral stent placement
Acute kidney injury on chronic kidney disease
Mild hyperkalemia
Diet: As tolerated
Activity: As tolerated
Blood Work: BMP with Dr Albrecht in 1-2 days
Referrals:
Yunior Albrecht DO [Active] - in less than 1 week
Clint Rosales MD [Active] - in one week
Jon Mitchell MD [Family Provider] - in less than 1 week
Prescriptions:
New
acetaminophen 325 mg Tablet
650 mg PO Q4HPRN PRN (Reason: mild pain/GRAHAM/temp> 100.4F) Qty: 0 0RF
polyethylene glycol 3350 17 gram Powder In Packet
17 g PO DAILYPRN PRN (Reason: constipation) Qty: 0 0RF
sennosides-docusate sodium 8.6-50 mg Tablet
1 tab PO BIDPRN PRN (Reason: constipation) Qty: 0 0RF
Continued
exemestane 25 mg Tablet
25 mg PO DAILY
pyridoxine (vitamin B6) 25 mg Tablet
100 mg PO DAILY
vitamin B complex Tablet
1 tab PO DAILY
selenium 200 mcg Tablet
200 mcg PO DAILY
cholecalciferol (vitamin D3) 250 mcg (10,000 unit) Tablet
250 mcg PO DAILY
famotidine 20 mg Tablet
20 mg PO HS Qty: 30 0RF
omeprazole 40 mg Capsule,Delayed Release(Dr/Ec)
40 mg PO HS Qty: 0 0RF
ondansetron 4 mg tablet,disintegrating
4 mg PO DAILY PRN (Reason: nausea and vomiting) Qty: 30 0RF
Discharge Orders:
Discharge Patient (As Directed); Ordered 09/03/24
Ordered By: Ganesh Trujillo
Discharge Date and Time
Discharge Date/Time: 09/03/24 17:29
Print Language: MAURITANIAN
== END 2024-09-03 17:29 | disposition home or self-care (01) | DRG 660 ==
LOC: 4 EAST ACU 10:07
PROVIDERS: Internal Medicine; Student in an Organized Health Care Education/Training Program; ADMITTING PHYSICIAN Internal Medicine; ATTENDING PHYSICIAN Internal Medicine; CONSULT PHYSICIAN Urology; EMERGENCY PHYSICIAN Emergency Medicine; FAMILY PHYSICIAN Family Medicine; OTHER PHYSICIAN Internal Medicine Nephrology
PROC: 0TC68ZZ Extirpation of Matter from Right Ureter, Via Natural or Artificial Opening Endoscopic (ICD-10-PCS; 2024-08-30)
PROC: 0T768DZ Dilation of Right Ureter with Intraluminal Device, Via Natural or Artificial Opening Endoscopic (ICD-10-PCS; 2024-08-30)
DX: N17.9 Acute kidney failure, unspecified (principal); E87.21 Acute metabolic acidosis; N13.2 Hydronephrosis with renal and ureteral calculous obstruction; I12.9 Hypertensive chronic kidney disease with stage 1 through stage 4 chronic kidney disease, or unspecified chronic kidney disease; K21.9 Gastro-esophageal reflux disease without esophagitis; Z98.84 Bariatric surgery status; E11.22 Type 2 diabetes mellitus with diabetic chronic kidney disease; Z85.3 Personal history of malignant neoplasm of breast; E87.5 Hyperkalemia; E83.51 Hypocalcemia; Z87.442 Personal history of urinary calculi; Z90.49 Acquired absence of other specified parts of digestive tract; N18.32 Chronic kidney disease, stage 3b
CPT/HCPCS: 74176; 74420; 76000; 80048; 80053; 81003; 81015; 82306; 82330; 82365; 82962; 83036; 83605; 83735; 84100; 84132; 85025; 85027; 87086; 93005; 96361; 96374; 96375; 97165; 99285; C1769; C2617

== ENCOUNTER → 2024-09-05 11:27 | Outpatient (REF) | payer MEDICARE, OTHER, SELFPAY ==
[2024-09-05 14:02] LABS: Blood Urea Nitrogen 59 mg/dl (7-17); Calcium 7.4 mg/dl (8.4-10.2); Carbon Dioxide 22 mmol/L (22-30); Chloride 107 mmol/L (98-107); Glucose 82 mg/dl (70-99); Potassium 5.6 mmol/L (3.5-5.1); Sodium 140 mmol/L (135-145)
== END ==
LOC: REG 11:27
PROVIDERS: ATTENDING PHYSICIAN Internal Medicine; FAMILY PHYSICIAN Family Medicine
DX: R10.9 Unspecified abdominal pain (principal)
CPT/HCPCS: 36415; 80048

== ENCOUNTER → 2024-09-09 11:49 | Outpatient (REF) | payer MEDICARE, OTHER, SELFPAY ==
[2024-09-09 16:54] LABS: Blood Urea Nitrogen 57 mg/dl (7-17); Carbon Dioxide 19 mmol/L (22-30); Chloride 108 mmol/L (98-107); Glucose 89 mg/dl (70-99); Potassium 5.3 mmol/L (3.5-5.1); Sodium 140 mmol/L (135-145); eGFR 11.43
== END ==
LOC: HWLAB 11:49
PROVIDERS: ATTENDING PHYSICIAN Internal Medicine; FAMILY PHYSICIAN Family Medicine
DX: N18.30 Chronic kidney disease, stage 3 unspecified (principal); E86.0 Dehydration; I12.9 Hypertensive chronic kidney disease with stage 1 through stage 4 chronic kidney disease, or unspecified chronic kidney disease; E11.22 Type 2 diabetes mellitus with diabetic chronic kidney disease
CPT/HCPCS: 36415; 80048

== ENCOUNTER → 2024-09-28 11:18 | Outpatient (REF) | payer MEDICARE, OTHER, SELFPAY ==
[2024-09-28 15:44] LABS: Blood Urea Nitrogen 61 mg/dl (7-17); Calcium 8.6 mg/dl (8.4-10.2); Carbon Dioxide 13 mmol/L (22-30); Chloride 113 mmol/L (98-107); Glucose 104 mg/dl (70-99); Potassium 5.2 mmol/L (3.5-5.1); Sodium 141 mmol/L (135-145); eGFR 9.95
== END ==
LOC: HWLAB 11:18
PROVIDERS: ATTENDING PHYSICIAN Specialist; FAMILY PHYSICIAN Emergency Medicine
DX: N17.9 Acute kidney failure, unspecified (principal); Z87.442 Personal history of urinary calculi
CPT/HCPCS: 36415; 80048

== ENCOUNTER → 2024-09-30 10:57 | Outpatient (REF) | payer MEDICARE, OTHER, SELFPAY | LOC: HWRAD 10:57 | PROVIDERS: ATTENDING PHYSICIAN Specialist; FAMILY PHYSICIAN Family Medicine | DX: N17.9 Acute kidney failure, unspecified (principal) | CPT/HCPCS: 76770 ==

== ENCOUNTER → 2024-10-05 11:25 | Outpatient (REF) | payer MEDICARE, OTHER, SELFPAY ==
[2024-10-05 16:03] LABS: Urine Albumin 2+ (Neg - Trace); Urine Bilirubin Negative (Negative); Urine Character Clear (Clear); Urine Color Yellow; Urine Glucose Negative (Negative); Urine Ketone Negative (Negative); Urine Leukocyte Negative (Negative); Urine Nitrite Negative (Negative); Urine Occult Blood 1+ (Negative); Urine Specific Gravity 1.015 (<1.030); Urine Urobilinogen Negative (Neg - 1+)
[2024-10-05 16:20] LABS: Hemoglobin 8.1 g/dL (12.0-16.0)
[2024-10-05 16:21] LABS: Blood Urea Nitrogen 65 mg/dl (7-17); Calcium 8.3 mg/dl (8.4-10.2); Carbon Dioxide 17 mmol/L (22-30); Chloride 111 mmol/L (98-107); Glucose 111 mg/dl (70-99); Phosphorus 5.3 mg/dl (2.5-4.5); Potassium 4.8 mmol/L (3.5-5.1); Sodium 141 mmol/L (135-145); eGFR 9.95
[2024-10-05 16:23] LABS: Urine Bacteria Few (Negative); Urine Red Blood Cell 0-2 /HPF (0-2); Urine Urothelial Cell 0-2 /LPF (FEW)
[2024-10-05 17:24] LABS: Urine Protein 33 mg/dl (0-12)
[2024-10-06 10:25] LABS: Intact PTH 837.7 pg/ml (13.6-85.8)
== END ==
LOC: HWLAB 11:25
PROVIDERS: ATTENDING PHYSICIAN Specialist; FAMILY PHYSICIAN Family Medicine
DX: N17.9 Acute kidney failure, unspecified (principal); N18.4 Chronic kidney disease, stage 4 (severe)
CPT/HCPCS: 36415; 80048; 81003; 81015; 82570; 83970; 84100; 84156; 85018

== ENCOUNTER → 2024-10-27 10:27 | Outpatient (REF) | payer MEDICARE, OTHER, SELFPAY ==
[2024-10-27 12:26] LABS: Blood Urea Nitrogen 60 mg/dl (7-17); Calcium 8.5 mg/dl (8.4-10.2); Carbon Dioxide 19 mmol/L (22-30); Chloride 110 mmol/L (98-107); Glucose 110 mg/dl (70-99); Hemoglobin 8.2 g/dL (12.0-16.0); Phosphorus 5.1 mg/dl (2.5-4.5); Potassium 4.5 mmol/L (3.5-5.1); Sodium 143 mmol/L (135-145); eGFR 10.79
== END ==
LOC: HWLAB 10:27
PROVIDERS: ATTENDING PHYSICIAN Specialist; FAMILY PHYSICIAN Family Medicine
DX: N18.30 Chronic kidney disease, stage 3 unspecified (principal); D63.8 Anemia in other chronic diseases classified elsewhere
CPT/HCPCS: 36415; 80048; 84100; 85018

== ENCOUNTER → 2024-11-05 09:28 | Outpatient (REF) | payer MEDICARE, OTHER, SELFPAY | LOC: HWRAD 09:28 | PROVIDERS: ATTENDING PHYSICIAN Internal Medicine Hematology & Oncology; FAMILY PHYSICIAN Family Medicine | DX: R22.2 Localized swelling, mass and lump, trunk (principal) | CPT/HCPCS: 76705 ==

== ENCOUNTER → 2024-11-13 11:01 | Outpatient (REF) | payer MEDICARE, OTHER, SELFPAY ==
[2024-11-13 16:22] LABS: Ferritin 67.7 ng/ml (11.1-264.0)
[2024-11-13 17:18] LABS: Blood Urea Nitrogen 73 mg/dl (7-17); Calcium 8.4 mg/dl (8.4-10.2); Carbon Dioxide 17 mmol/L (22-30); Chloride 112 mmol/L (98-107); Glucose 105 mg/dl (70-99); Iron 99 ug/dl (37-170); Percent Saturation 27 % (20-50); Potassium 5.1 mmol/L (3.5-5.1); Sodium 143 mmol/L (135-145); Total Iron Binding Capacity 363 ug/dl (265-497); eGFR 9.23
[2024-11-14 12:12] LABS: Intact PTH 567.6 pg/ml (13.6-85.8)
== END ==
LOC: HWLAB 11:01
PROVIDERS: ATTENDING PHYSICIAN Specialist; FAMILY PHYSICIAN Family Medicine
DX: I12.9 Hypertensive chronic kidney disease with stage 1 through stage 4 chronic kidney disease, or unspecified chronic kidney disease (principal); N18.30 Chronic kidney disease, stage 3 unspecified; D63.8 Anemia in other chronic diseases classified elsewhere; E87.20 Acidosis, unspecified; E11.22 Type 2 diabetes mellitus with diabetic chronic kidney disease; E87.6 Hypokalemia; E83.51 Hypocalcemia; R74.01 Elevation of levels of liver transaminase levels
CPT/HCPCS: 36415; 80048; 82728; 83540; 83550; 83970

== ENCOUNTER → 2024-12-24 11:26 | Outpatient (REF) | payer MEDICARE, OTHER, SELFPAY ==
[2024-12-24 16:29] LABS: % Basophils 0.6 % (0-2); % Eosinophils 10.6 % (0-6); % Immature Granulocytes 0.2 % (0-0.5); % Lymphocytes 26.4 % (20.5-51.1); % Monocytes 7.1 % (1.7-9.3); % Neutrophils 55.1 % (42.2-75.2); Absolute Eosinophils 0.5 10^3/uL (0-0.7); Absolute Lymphocytes 1.2 10^3/uL (1.2-3.4); Absolute Monocytes 0.3 10^3/uL (0.1-0.6); Absolute Neutrophils 2.5 10^3/uL (1.4-6.5); Hematocrit 26.2 % (37.0-47.0); Hemoglobin 8.4 g/dL (12.0-16.0); Mean Corp Hgb Conc. 32.1 g/dL (33.0-37.0); Mean Corpuscular Volume 96.7 fL (81.0-99.0); Nucleated Red Blood Cells % 0 %; Platelet Count 173 10^3/uL (130-400); Red Blood Cell Count 2.71 10^6/uL (4.20-5.40); Red Cell Dist. Width 12.3 % (11.5-14.5); Reticulocyte Count 1.1 % (0.4-2.8); White Blood Cell Count 4.6 10^3/uL (4.8-10.8)
[2024-12-24 16:38] LABS: ALT (SGPT) 57 U/L (0-35); AST (SGOT) 33 U/L (14-36); Albumin 4.5 g/dl (3.5-5.0); Alkaline Phosphatase 110 U/L (38-126); Blood Urea Nitrogen 67 mg/dl (7-17); Calcium 8.5 mg/dl (8.4-10.2); Carbon Dioxide 22 mmol/L (22-30); Chloride 111 mmol/L (98-107); Glucose 104 mg/dl (70-99); Iron 134 ug/dl (37-170); LDH 200 U/L (120-246); Potassium 5.2 mmol/L (3.5-5.1); Sodium 144 mmol/L (135-145); Total Bilirubin 0.5 mg/dl (0.2-1.3); Total Protein 6.7 g/dl (6.3-8.2)
[2024-12-24 16:47] LABS: Percent Saturation 35 % (20-50); Total Iron Binding Capacity 373 ug/dl (265-497)
[2024-12-24 16:52] LABS: Erythrocyte Sed Rate 30 mm/hour (0-20)
[2024-12-24 17:06] LABS: Ferritin 72.4 ng/ml (11.1-264.0)
[2024-12-24 17:37] LABS: Vitamin B12 606 pg/ml (239-931)
[2024-12-26 20:35] LABS: Erythropoietin (EPO) 6 mU/mL (4-27)
[2024-12-27 04:33] LABS: Haptoglobin 188 mg/dL (30-200)
[2024-12-27 05:34] LABS: Beta-2-Microglobulin 13.9 mg/L (<=3.0)
== END ==
LOC: HWLAB 11:26
PROVIDERS: ATTENDING PHYSICIAN Nurse Practitioner Adult Health; FAMILY PHYSICIAN Nurse Practitioner Family
DX: D64.9 Anemia, unspecified (principal); D63.1 Anemia in chronic kidney disease; R53.83 Other fatigue; C50.919 Malignant neoplasm of unspecified site of unspecified female breast
CPT/HCPCS: 36415; 80053; 82232; 82607; 82668; 82728; 82746; 82784; 83010; 83521; 83540; 83550; 83615; 84155; 84165; 85025; 85045; 85652; 86334; 86880

== ENCOUNTER → 2025-01-18 11:05 | Outpatient (REF) | payer MEDICARE, OTHER, SELFPAY ==
[2025-01-18 16:02] LABS: Calcium 8.0 mg/dl (8.4-10.2)
[2025-01-18 16:11] LABS: Hematocrit 25.7 % (37.0-47.0); Hemoglobin 8.2 g/dL (12.0-16.0); Mean Corp Hgb Conc. 31.9 g/dL (33.0-37.0); Mean Corpuscular Volume 97.0 fL (81.0-99.0); Nucleated Red Blood Cells % 0 %; Platelet Count 167 10^3/uL (130-400); Red Cell Dist. Width 12.7 % (11.5-14.5)
== END ==
LOC: HWLAB 11:05
PROVIDERS: ATTENDING PHYSICIAN Specialist; FAMILY PHYSICIAN Nurse Practitioner Family
DX: N18.4 Chronic kidney disease, stage 4 (severe) (principal); E87.20 Acidosis, unspecified; N25.81 Secondary hyperparathyroidism of renal origin
CPT/HCPCS: 36415; 83970; 84100; 85025

== ENCOUNTER 2025-01-18 12:22 | Outpatient (RCR) | payer MEDICARE, OTHER, SELFPAY ==
[2025-01-18 10:17] LABS: Hematocrit 24.9 % (37.0-47.0); Hemoglobin 8.0 g/dL (12.0-16.0); Mean Corp Hgb Conc. 32.1 g/dL (33.0-37.0); Mean Corpuscular Volume 96.9 fL (81.0-99.0); Platelet Count 173 10^3/uL (130-400); Red Cell Dist. Width 12.6 % (11.5-14.5)
== END 2025-01-28 23:59 | disposition home or self-care (01) ==
LOC: OID 12:22
PROVIDERS: ATTENDING PHYSICIAN Internal Medicine Hematology & Oncology
DX: D64.9 Anemia, unspecified (principal); D63.1 Anemia in chronic kidney disease; R53.82 Chronic fatigue, unspecified; Z98.84 Bariatric surgery status
CPT/HCPCS: 85025

== ENCOUNTER → 2025-02-03 08:45 | Outpatient (REF) | payer MEDICARE, OTHER, SELFPAY ==
[2025-02-03 08:45] LABS: Hematocrit 28.1 % (37.0-47.0); Hemoglobin 8.9 g/dL (12.0-16.0); Mean Corp Hgb Conc. 31.7 g/dL (33.0-37.0); Mean Corpuscular Volume 98.9 fL (81.0-99.0); Platelet Count 155 10^3/uL (130-400); Red Cell Dist. Width 13.9 % (11.5-14.5)
== END ==
LOC: OIDL 08:45
PROVIDERS: ATTENDING PHYSICIAN Internal Medicine Hematology & Oncology
DX: D64.9 Anemia, unspecified (principal); D63.1 Anemia in chronic kidney disease; R53.82 Chronic fatigue, unspecified
CPT/HCPCS: 85025

== ENCOUNTER → 2025-02-12 10:17 | Outpatient (REF) | payer MEDICARE, OTHER, SELFPAY ==
[2025-02-12 11:43] LABS: Hematocrit 32.4 % (37.0-47.0); Hemoglobin 10.0 g/dL (12.0-16.0); Mean Corp Hgb Conc. 30.9 g/dL (33.0-37.0); Mean Corpuscular Volume 99.1 fL (81.0-99.0); Nucleated Red Blood Cells % 0 %; Platelet Count 190 10^3/uL (130-400); Red Cell Dist. Width 13.8 % (11.5-14.5)
[2025-02-12 12:21] LABS: Iron 72 ug/dl (37-170)
[2025-02-12 12:30] LABS: Total Iron Binding Capacity 411 ug/dl (265-497)
[2025-02-12 12:55] LABS: Ferritin 15.8 ng/ml (11.1-264.0)
== END ==
LOC: HWLAB 10:17
PROVIDERS: ATTENDING PHYSICIAN Internal Medicine Hematology & Oncology; FAMILY PHYSICIAN Nurse Practitioner Family
DX: D64.9 Anemia, unspecified (principal); D63.1 Anemia in chronic kidney disease; R53.82 Chronic fatigue, unspecified
CPT/HCPCS: 36415; 82728; 83540; 83550; 85025

== ENCOUNTER → 2025-03-02 10:13 | Outpatient (REF) | payer MEDICARE, OTHER, SELFPAY ==
[2025-03-02 12:18] LABS: Hematocrit 34.8 % (37.0-47.0); Hemoglobin 11.0 g/dL (12.0-16.0); Mean Corp Hgb Conc. 31.6 g/dL (33.0-37.0); Mean Corpuscular Volume 96.4 fL (81.0-99.0); Nucleated Red Blood Cells % 0 %; Platelet Count 178 10^3/uL (130-400); Red Cell Dist. Width 13.5 % (11.5-14.5)
[2025-03-02 12:57] LABS: Blood Urea Nitrogen 63 mg/dl (7-17); Iron 97 ug/dl (37-170)
[2025-03-02 13:11] LABS: Total Iron Binding Capacity 445 ug/dl (265-497)
[2025-03-02 13:29] LABS: Ferritin 11.5 ng/ml (11.1-264.0)
== END ==
LOC: HWLAB 10:13
PROVIDERS: ATTENDING PHYSICIAN Internal Medicine Hematology & Oncology; FAMILY PHYSICIAN Nurse Practitioner Family
DX: D64.9 Anemia, unspecified (principal); D63.1 Anemia in chronic kidney disease; R53.82 Chronic fatigue, unspecified
CPT/HCPCS: 36415; 82565; 82728; 83540; 83550; 84520; 85025

== ENCOUNTER → 2025-03-15 09:17 | Outpatient (REF) | payer MEDICARE, OTHER, SELFPAY ==
[2025-03-15 12:34] LABS: Hematocrit 36.3 % (37.0-47.0); Hemoglobin 11.2 g/dL (12.0-16.0); Mean Corp Hgb Conc. 30.9 g/dL (33.0-37.0); Mean Corpuscular Volume 97.3 fL (81.0-99.0); Nucleated Red Blood Cells % 0 %; Platelet Count 155 10^3/uL (130-400); Red Cell Dist. Width 12.8 % (11.5-14.5)
[2025-03-15 14:01] LABS: Ferritin 423.0 ng/ml (11.1-264.0)
[2025-03-15 14:11] LABS: Blood Urea Nitrogen 66 mg/dl (7-17); Calcium 8.6 mg/dl (8.4-10.2); Carbon Dioxide 22 mmol/L (22-30); Chloride 109 mmol/L (98-107); Glucose 102 mg/dl (70-99); HDL Cholesterol 61 mg/dl; Iron 257 ug/dl (37-170); LDL Cholesterol, Calculated 28 mg/dl; Potassium 5.9 mmol/L (3.5-5.1); Sodium 140 mmol/L (135-145); Total Iron Binding Capacity 373 ug/dl (265-497); Very Low Density Lipoprotein 14 mg/dl (0-30); eGFR 9.23
[2025-03-15 14:16] LABS: Glycohemoglobin (HgbA1c) 5.0 % (4.0-5.6)
== END ==
LOC: HWLAB 09:17
PROVIDERS: ATTENDING PHYSICIAN Specialist; FAMILY PHYSICIAN Nurse Practitioner Family; REFERRING PHYSICIAN Internal Medicine Hematology & Oncology
DX: N18.5 Chronic kidney disease, stage 5 (principal); N25.81 Secondary hyperparathyroidism of renal origin; E87.20 Acidosis, unspecified; D64.9 Anemia, unspecified; D63.1 Anemia in chronic kidney disease; R53.82 Chronic fatigue, unspecified; Z13.220 Encounter for screening for lipoid disorders; Z13.1 Encounter for screening for diabetes mellitus; Z13.29 Encounter for screening for other suspected endocrine disorder; Z79.899 Other long term (current) drug therapy
CPT/HCPCS: 36415; 80048; 80061; 82652; 82728; 82985; 83036; 83540; 83550; 83970; 84100; 84443; 85025

== ENCOUNTER → 2025-03-31 10:57 | Outpatient (REF) | payer MEDICARE, OTHER, SELFPAY ==
[2025-03-31 12:52] LABS: Hematocrit 34.1 % (37.0-47.0); Hemoglobin 10.6 g/dL (12.0-16.0); Mean Corp Hgb Conc. 31.1 g/dL (33.0-37.0); Mean Corpuscular Volume 95.3 fL (81.0-99.0); Nucleated Red Blood Cells % 0 %; Platelet Count 136 10^3/uL (130-400); Red Cell Dist. Width 12.2 % (11.5-14.5)
[2025-03-31 13:53] LABS: Blood Urea Nitrogen 64 mg/dl (7-17); Calcium 8.3 mg/dl (8.4-10.2); Carbon Dioxide 19 mmol/L (22-30); Chloride 107 mmol/L (98-107); Glucose 246 mg/dl (70-99); Potassium 4.6 mmol/L (3.5-5.1); Sodium 138 mmol/L (135-145); eGFR 8.79
== END ==
LOC: HWLAB 10:57
PROVIDERS: ATTENDING PHYSICIAN Internal Medicine Hematology & Oncology; FAMILY PHYSICIAN Nurse Practitioner Family; REFERRING PHYSICIAN Specialist
DX: D64.9 Anemia, unspecified (principal); D63.1 Anemia in chronic kidney disease; R53.82 Chronic fatigue, unspecified; N18.5 Chronic kidney disease, stage 5; N25.81 Secondary hyperparathyroidism of renal origin; E87.20 Acidosis, unspecified; E87.5 Hyperkalemia
CPT/HCPCS: 36415; 80048; 84100; 85025

== ENCOUNTER → 2025-04-15 08:02 | Outpatient (REF) | payer MEDICARE, OTHER, SELFPAY | LOC: HWRCS 08:02 | PROVIDERS: ATTENDING PHYSICIAN Internal Medicine Cardiovascular Disease; FAMILY PHYSICIAN Nurse Practitioner Family | DX: R55 Syncope and collapse (principal); Z76.82 Awaiting organ transplant status | CPT/HCPCS: 78452; 93017; A9500; J2785 ==

== ENCOUNTER → 2025-04-21 10:46 | Outpatient (REF) | payer MEDICARE, OTHER, SELFPAY ==
[2025-04-21 12:21] LABS: Hematocrit 34.1 % (37.0-47.0); Hemoglobin 10.9 g/dL (12.0-16.0); Mean Corp Hgb Conc. 32.0 g/dL (33.0-37.0); Mean Corpuscular Volume 95.8 fL (81.0-99.0); Nucleated Red Blood Cells % 0 %; Platelet Count 159 10^3/uL (130-400); Red Cell Dist. Width 13.6 % (11.5-14.5)
[2025-04-21 12:53] LABS: Blood Urea Nitrogen 67 mg/dl (7-17); Iron 153 ug/dl (37-170)
[2025-04-21 13:01] LABS: Total Iron Binding Capacity 352 ug/dl (265-497)
[2025-04-21 13:23] LABS: Ferritin 172.0 ng/ml (11.1-264.0)
== END ==
LOC: HWRCS 10:46
PROVIDERS: ATTENDING PHYSICIAN Internal Medicine Cardiovascular Disease; FAMILY PHYSICIAN Nurse Practitioner Family; REFERRING PHYSICIAN Internal Medicine Hematology & Oncology
DX: Z76.82 Awaiting organ transplant status (principal); R55 Syncope and collapse; D64.9 Anemia, unspecified; D63.1 Anemia in chronic kidney disease; R53.82 Chronic fatigue, unspecified
CPT/HCPCS: 36415; 82565; 82728; 83540; 83550; 84520; 85025; 93306

== ENCOUNTER → 2025-04-30 09:55 | Outpatient (REF) | payer MEDICARE, OTHER, SELFPAY ==
[2025-04-30 10:24] LABS: Hematocrit 35.3 % (37.0-47.0); Hemoglobin 10.8 g/dL (12.0-16.0); Mean Corp Hgb Conc. 30.6 g/dL (33.0-37.0); Mean Corpuscular Volume 99.2 fL (81.0-99.0); Nucleated Red Blood Cells % 0 %; Platelet Count 146 10^3/uL (130-400); Red Cell Dist. Width 13.0 % (11.5-14.5)
== END ==
LOC: REG 09:55
PROVIDERS: ATTENDING PHYSICIAN Internal Medicine Hematology & Oncology; FAMILY PHYSICIAN Nurse Practitioner Family
DX: C50.412 Malignant neoplasm of upper-outer quadrant of left female breast (principal); D64.9 Anemia, unspecified; D63.1 Anemia in chronic kidney disease; R53.82 Chronic fatigue, unspecified; D50.9 Iron deficiency anemia, unspecified
CPT/HCPCS: 36415; 85025

== ENCOUNTER 2025-05-05 06:25 | Day surgery (SDC) | payer MEDICARE, OTHER, SELFPAY | END 2025-05-05 09:02 | disposition home or self-care (01) | LOC: GI 06:25 | PROVIDERS: ATTENDING PHYSICIAN Student in an Organized Health Care Education/Training Program | DX: Z12.11 Encounter for screening for malignant neoplasm of colon (principal); K62.89 Other specified diseases of anus and rectum; D12.0 Benign neoplasm of cecum; Z80.0 Family history of malignant neoplasm of digestive organs | CPT/HCPCS: 45385; 88305 ==

== ENCOUNTER 2025-05-06 06:24 | Day surgery (SDC) | payer MEDICARE, OTHER, SELFPAY | END 2025-05-06 15:51 | disposition home or self-care (01) | LOC: GI 06:24 | PROVIDERS: ATTENDING PHYSICIAN Internal Medicine Gastroenterology | DX: Z12.11 Encounter for screening for malignant neoplasm of colon (principal); K64.8 Other hemorrhoids; K57.30 Diverticulosis of large intestine without perforation or abscess without bleeding; Z80.0 Family history of malignant neoplasm of digestive organs | CPT/HCPCS: G0105 ==

== ENCOUNTER → 2025-05-07 09:05 | Outpatient (REF) | payer MEDICARE, OTHER, SELFPAY ==
[2025-05-07 13:15] LABS: Blood Urea Nitrogen 50 mg/dl (7-17); Calcium 8.7 mg/dl (8.4-10.2); Carbon Dioxide 21 mmol/L (22-30); Chloride 110 mmol/L (98-107); Glucose 97 mg/dl (70-99); Potassium 5.7 mmol/L (3.5-5.1); Sodium 140 mmol/L (135-145); eGFR 8.59
== END ==
LOC: HWLAB 09:05
PROVIDERS: ATTENDING PHYSICIAN Specialist; FAMILY PHYSICIAN Nurse Practitioner Family
DX: N18.5 Chronic kidney disease, stage 5 (principal); D64.9 Anemia, unspecified; E87.20 Acidosis, unspecified; E87.6 Hypokalemia
CPT/HCPCS: 36415; 80048

== ENCOUNTER 2025-05-15 04:06 | Emergency (ER) | payer MEDICARE, OTHER, SELFPAY ==
[2025-05-15 04:13] VITALS: BP 160/95
--- NOTE | 2025-05-15 04:40 | ED.GENMED ---
History of Present Illness
General
Chief Complaint: Extremity Pain (non-traumatic)
Source: patient
Exam Limitations: none
Time Seen by Provider: 05/15/25 04:33
History of Present Illness
History of Present Illness:
See MDM
Past History
Past History
ED Past Medical History: NIDDM and Other (Pancreatitis, Chronic kidney disease)
ED Past Surgical History: Cholecystectomy, Gynecological (Tubal), Orthopedic (Foot, hand and knee surgery (doesn't remember which side)) and Other (Gastric by pass)
Social History
Tobacco: Non-smoker
Alcohol: None
Personal:
Living: with family
Phy Exam
Physical Exam
Physical Exam:
See MDM
Course
Orders/Labs/Results
Orders:
Orders
05/15/25 04:33
HYDROmorphone [Dilaudid] 1 mg IM NOW STA
Ondansetron Orally Disint [Zofran Odt (Orally Disintegrating)] 4 mg PO NOW STA
Vital Signs
Initial and Last Documented VS:
Initial Vital Signs
Temp Pulse Resp BP Pulse Ox
97.9 F 64 20 160/95 100
05/15/25 04:13 05/15/25 04:13 05/15/25 04:13 05/15/25 04:13 05/15/25 04:13
Last Documented Vital Signs
Temp Pulse Resp BP Pulse Ox
97.9 F 64 20 160/95 100
05/15/25 04:13 05/15/25 04:13 05/15/25 04:13 05/15/25 04:13 05/15/25 04:13
MDM/Problems Addressed
Differential Diagnosis Includes:
Note:
CHIEF COMPLAINT(S)
Foot pain with a history of gout.
HISTORY OF PRESENT ILLNESS
The patient is a 64-year-old female with a known history of gout and chronic kidney disease (CKD) presenting with foot pain. According to the patient, the pain began spontaneously and is located in a classic location for gout. The pain is severe to
the point that even light touch, such as a sheet resting on the foot, causes significant discomfort. The patient reports that the pain worsens with movement.
The patient has CKD and metabolic acidosis, which may contribute to uric acid buildup. She states she takes six sodium bicarbonate tablets daily. Recently, she has been trying to watch her diet, potentially to reduce triggers like meat, cheese, or
beer that could exacerbate gout.
Though concerned about kidney function, the patient�s recent blood work did not include a uric acid level. It is noted that in a significant number of individuals with gout, uric acid levels may appear normal.
The patient expresses concern about taking non-steroidal anti-inflammatory drugs (NSAIDs) due to her kidney disease. She also notes a sensitivity to narcotics, which typically cause nausea.
PAST MEDICAL AND SURGICAL HISTORY
- Chronic kidney disease with a history of surgical intervention for a blockage.
- Metabolic acidosis.
CHRONIC MEDICAL CONDITIONS SIGNIFICANTLY AFFECTING CARE
Chronic conditions affecting care include chronic kidney disease and gout.
PHYSICAL EXAM
General: Alert, no acute distress.
Skin: Warm, dry.
Head: Normocephalic, atraumatic
Neck: Appears supple, trachea midline.
Eyes, Ears, Nose, Mouth, and Throat: Moist mucous membranes
Cardiovascular: No signs of cyanosis
Respiratory: Respirations are non-labored.
Abdomen: Non-distended
Musculoskeletal: No deformities. Very mild erythema to the medial aspect of left first MTP. Light touch causes significant pain. Distal foot otherwise neurovascular intact
Neurological: No focal neurological deficit observed.
Psychiatric: Cooperative, appropriate mood and affect.
DIFFERENTIAL DIAGNOSIS
The Differential Diagnosis includes, in no particular order and is not limited to:
- Gout
- Skin infection
SUMMARY OF ENCOUNTER
The patient was seen for foot pain consistent with a gout flare. Given her background of CKD and metabolic acidosis, NSAIDs were avoided due to potential nephrotoxicity. The decision was made to manage inflammation with steroids and address pain
with oxycodone, along with a prescription for anti-nausea medication due to her sensitivity to narcotics.
DISPOSITION
Discharge
ASSESSMENT
Probable acute gout exacerbation with associated inflammation and significant pain, managed through a combination of steroids and pain medication while considering her renal condition.
EMERGENCY TREATMENTS ADMINISTERED
- Intramuscular administration of hydromorphone (Dilaudid) for immediate pain relief.
- Administration of anti-nausea medication.
FOLLOW-UP INSTRUCTIONS
The patient is advised to fill prescribed medications and to consult with her primary care team or guest advisor over the weekend if necessary before starting the steroids to ensure compatibility with current renal management plans. Dietary
modifications should be continued to mitigate gout flares.
MEDICATION RECONCILIATION
- Prednisone prescribed
- Oxycodone prescribed with an anti-nausea medication
- Intramuscular hydromorphone administered for immediate pain relief
MEDICAL DECISION MAKING
-Complexity of Data Reviewed: Chronic conditions affecting care include chronic kidney disease and gout, with a differential diagnosis considering gout and skin infection.
-Data:
Category 1
External record reviewed: Recent blood work did not include uric acid levels. Uric acid levels can appear normal even in gout, leading to clinical diagnosis.
Category 2
Not applicable.
Category 3
Discussion of management with the patient�s primary care team over the weekend to ensure corticosteroid therapy aligns with renal function management priorities.
Risk:
Prescription medication was prescribed: Prednisone and oxycodone with anti-nausea medication.
DIAGNOSIS
- Gout (ICD-10: M10.9)
- Chronic kidney disease (ICD-10: N18.9)
Disposition:
SUMMARY OF ENCOUNTER
The patient presented with pain localized to her left first metatarsophalangeal (MTP) joint, accompanied by mild erythema suggestive of a gout flare. Recent blood work reviewed indicated significant renal dysfunction, influencing the decision to
avoid non-steroidal anti-inflammatory drugs (NSAIDs) due to the risk of nephrotoxicity. Pain management was initiated, and a short course of prednisone was considered. However, the patient opted to discuss the use of prednisone with her doctors due
to potential renal concerns.
DISPOSITION
Discharge
ASSESSMENT
Probable acute gout exacerbation with associated inflammation and pain, requiring management mindful of underlying renal dysfunction.
EMERGENCY TREATMENTS ADMINISTERED
Not specified in the transcript.
PLAN
Management of pain using appropriate analgesics and prescribing a short course of prednisone, conditional on discussion with the patients primary care doctors regarding renal health implications.
INDEPENDENT REVIEW OF LABS AND INTERPRETATION OF TESTS
My independent review of recent blood work indicates significant renal dysfunction.
FOLLOW-UP INSTRUCTIONS
The patient should consult with her primary care team before starting prednisone to ensure compatibility with her current renal management plans.
MEDICATION RECONCILIATION
- Pain medication initiated (specific medication not detailed).
- Prednisone prescribed conditionally.
MEDICAL DECISION MAKING
- Complexity of Data Reviewed: Chronic conditions affecting care include chronic kidney disease and gout. Differential Diagnosis includes gout and skin infection.
- Data:
Category 1: Reviewed recent blood work indicating significant renal dysfunction.
Category 3: The patient will discuss management with her primary care doctors to ensure treatment aligns with renal considerations.
CRITICAL CARE TIME
Not specified in the transcript.
DIAGNOSIS
- Gout (ICD-10: M10.9)
- Chronic kidney disease (ICD-10: N18.9)
*Pulse Oximetry
SaO2: 100
Oxygen Mode of Delivery: Room air
Patient hypoxic: no
*Critical Care Note
Total Time (30-74mins, 75-104mins- exclusive of procedures): Not Applicable
ED Attending Note
-
Portions of this chart may have been created with voice recognition software.� Occasional wrong word or��sound alike� substitutions may have occurred due to the inherent limitations of voice recognition software.
Discharge Plan
Departure
Patient with high blood pressure during this ER visit?: Yes
Discharge Problem:
Gout
Instructions: Low-purine diet, Gout - ED (DC), BLOOD PRESSURE
Prescriptions:
New
prednisone 10 mg tablet
30 mg PO DAILY 4 Days Qty: 12 0RF
ondansetron 4 mg Tablet,Disintegrating
4 mg PO BIDPRN PRN (Reason: nausea/vomiting) Qty: 10 0RF
oxycodone 5 mg tablet
5 mg PO Q8H PRN (Reason: Pain) Qty: 10 0RF
No Action
exemestane 25 mg Tablet
25 mg PO DAILY
pyridoxine (vitamin B6) 25 mg Tablet
100 mg PO DAILY
vitamin B complex Tablet
1 tab PO DAILY
selenium 200 mcg Tablet
200 mcg PO DAILY
cholecalciferol (vitamin D3) 250 mcg (10,000 unit) Tablet
250 mcg PO DAILY
famotidine 20 mg Tablet
20 mg PO HS Qty: 30 0RF
omeprazole 40 mg Capsule,Delayed Release(Dr/Ec)
40 mg PO HS Qty: 0 0RF
ondansetron 4 mg tablet,disintegrating
4 mg PO DAILY PRN (Reason: nausea and vomiting) Qty: 30 0RF
acetaminophen 325 mg Tablet
650 mg PO Q4HPRN PRN (Reason: mild pain/GRAHAM/temp> 100.4F) Qty: 0 0RF
polyethylene glycol 3350 17 gram Powder In Packet
17 g PO DAILYPRN PRN (Reason: constipation) Qty: 0 0RF
sennosides-docusate sodium 8.6-50 mg Tablet
1 tab PO BIDPRN PRN (Reason: constipation) Qty: 0 0RF
Referrals:
Yamel Pena CRNP [Family Provider, Family Practice]
Activity Restrictions/Additional Instructions:
Please return for any worsening symptoms.
You may return at any time if you have further concerns.
Please follow up with your doctor at the first available appointment, preferably this week.
Please talk to your primary care doctor and the guest advisor before starting the steroids.
Thank you for choosing [facility].
Interventions
Interventions:
*Risk Screen - Suicide Last Done: 05/15/25 04:13
*General Assessment Last Done: 05/15/25 04:13
*Neglect/Abuse Screening Last Done: 05/15/25 04:13
*ED- Fall Risk Assessment Last Done: 05/15/25 04:13
*ED COVID-19 Vaccine History Last Done: 05/15/25 04:13
*ED Influenza Vaccine History Last Done: 05/15/25 04:13
ED-Skin Assessment Last Done: 05/15/25 04:25
ED-Peripheral Vascular Assessment Last Done: 05/15/25 04:25
ED-Musculoskeletal Assessment Last Done: 05/15/25 04:25
Discharge Date and Time
Print Language: SLOVAK
[2025-05-15] MEDS: ZOFRAN ODT (ORALLY DISINTEGRATING) 4 MG PO (04:44)
[2025-05-15] MEDS: DILAUDID 1 MG IM (04:45)
== END 2025-05-15 05:40 | disposition home or self-care (01) ==
LOC: EMR 04:06
PROVIDERS: EMERGENCY PHYSICIAN Student in an Organized Health Care Education/Training Program; FAMILY PHYSICIAN Nurse Practitioner Family
DX: M10.9 Gout, unspecified (principal); E11.22 Type 2 diabetes mellitus with diabetic chronic kidney disease; N18.9 Chronic kidney disease, unspecified; Z90.49 Acquired absence of other specified parts of digestive tract; E87.20 Acidosis, unspecified
CPT/HCPCS: 96372; 99284

== ENCOUNTER → 2025-05-17 09:26 | Outpatient (REF) | payer MEDICARE, OTHER, SELFPAY ==
[2025-05-17 12:52] LABS: Hematocrit 36.0 % (37.0-47.0); Hemoglobin 11.0 g/dL (12.0-16.0); Mean Corp Hgb Conc. 30.6 g/dL (33.0-37.0); Mean Corpuscular Volume 101.1 fL (81.0-99.0); Nucleated Red Blood Cells % 0 %; Platelet Count 152 10^3/uL (130-400); Red Cell Dist. Width 13.9 % (11.5-14.5)
== END ==
LOC: HWLAB 09:26
PROVIDERS: ATTENDING PHYSICIAN Internal Medicine Hematology & Oncology; FAMILY PHYSICIAN Nurse Practitioner Family; REFERRING PHYSICIAN Specialist
DX: D64.9 Anemia, unspecified (principal); D63.1 Anemia in chronic kidney disease; R53.82 Chronic fatigue, unspecified
CPT/HCPCS: 36415; 85025

== ENCOUNTER → 2025-06-15 14:01 | Outpatient (REF) | payer MEDICARE, OTHER, SELFPAY ==
[2025-06-15 14:54] LABS: Hemoglobin 9.3 g/dL (12.0-16.0)
[2025-06-15 15:14] LABS: Blood Urea Nitrogen 68 mg/dl (7-17); Calcium 8.5 mg/dl (8.4-10.2); Carbon Dioxide 20 mmol/L (22-30); Chloride 106 mmol/L (98-107); Glucose 88 mg/dl (70-99); Sodium 137 mmol/L (135-145); Uric Acid 5.8 mg/dl (2.5-6.2); eGFR 9.23
[2025-06-15 15:19] LABS: Potassium 5.0 mmol/L (3.5-5.1)
== END ==
LOC: REG 14:01
PROVIDERS: ATTENDING PHYSICIAN Specialist; FAMILY PHYSICIAN Nurse Practitioner Family
DX: N18.5 Chronic kidney disease, stage 5 (principal); D64.9 Anemia, unspecified; E87.20 Acidosis, unspecified; E83.39 Other disorders of phosphorus metabolism; M10.9 Gout, unspecified; R82.992 Hyperoxaluria
CPT/HCPCS: 36415; 80048; 83519; 84100; 84550; 85018